=== PATIENT | female | born 1950 | race Caucasian/White ===

== ENCOUNTER → 2020-03-23 15:47 | Outpatient (CLI) | payer MEDICARE, SELFPAY ==
[2020-03-23 16:34] LABS: Basophils # 0.1 K/mm3 (0-0.2); Basophils % 0.5 % (0.1-2.0); Eosinophils # 0.1 K/mm3 (0.0-0.4); Eosinophils % 0.6 % (0.1-12.0); Hematocrit 44.4 % (37.0-47.0); Hemoglobin 14.8 g/dL (12.2-16.2); Lymphocytes # 2.6 K/mm3 (0.7-4.5); Lymphocytes % 21.8 % (10-50); Mean Corpuscular HGB Conc 33.2 g/dL (31.8-35.4); Mean Corpuscular Hemoglobin 30.8 pg (27.0-31.2); Mean Corpuscular Volume 92.9 fl (81-99); Mean Platelet Volume 8.7 fl (7.4-10.4); Monocytes # 0.7 K/mm3 (0.1-1.0); Monocytes % 5.8 % (1.7-9.3); Neutrophils # 8.5 K/mm3 (1.8-7.8); Neutrophils % 71.3 % (37.0-80.0); Platelet Count 409 K/mm3 (142-424); Red Blood Count 4.78 M/mm3 (4.20-5.40); White Blood Count 11.9 K/mm3 (4.8-10.8)
[2020-03-23 18:15] LABS: Alanine Aminotransferase 34 U/L (12-78); Albumin Level 4.3 g/dl (3.5-5.0); Albumin/Globulin Ratio 1.6 (1.1-1.8); Alkaline Phosphatase 82 U/L (38-126); Anion Gap 17.7 mEq/L (5-15); Aspartate Amino Transferase 42 U/L (14-36); Bilirubin,Total 0.9 mg/dl (0.2-1.3); Blood Urea Nitrogen 16 mg/dl (7-17); Carbon Dioxide 25 mmol/L (22.0-30.0); Chloride 100 mmol/L (98-107); Chol/HDL Ratio 3.2 (1-3.5); Cholesterol 246 mg/dl (140-200); Estimated Glomerular Filt Rate 83 ml/min (>60); GFR (African American) 100 ML/MIN (>60); Globulin 2.7 g/dL (1.3-3.2); Glucose 132 mg/dl (74-100); HDL Cholesterol 78 mg/dl (40-60); Potassium 4.7 mmoL/L (3.5-5.1); Sodium 138 mmol/L (136-145); Triglycerides 234 mg/dl (30-150); VLDL Cholesterol 47 mg/dL (0-40)
[2020-03-23 18:26] LABS: Direct LDL Cholesterol 124.17 mg/dL (100-129)
[2020-03-23 20:12] LABS: Hemoglobin A1C 6.4 % (4.0-6.0)
== END ==
PROVIDERS: Visit Provider Family Medicine
DX: I10 Essential (primary) hypertension (principal); E11.9 Type 2 diabetes mellitus without complications; K57.33 Diverticulitis of large intestine without perforation or abscess with bleeding
CPT/HCPCS: 80053; 80061; 83036; 85025

== ENCOUNTER → 2020-11-12 14:19 | Outpatient (CLI) | payer MEDICARE, SELFPAY ==
[2020-11-12 14:29] LABS: Basophils # 0.1 K/mm3 (0-0.2); Basophils % 0.7 % (0.1-2.0); Eosinophils # 0.1 K/mm3 (0.0-0.4); Eosinophils % 0.7 % (0.1-12.0); Hematocrit 43.8 % (37.0-47.0); Hemoglobin 14.4 g/dL (12.2-16.2); Lymphocytes # 3.3 K/mm3 (0.7-4.5); Lymphocytes % 35.5 % (10-50); Mean Corpuscular HGB Conc 32.9 g/dL (31.8-35.4); Mean Corpuscular Hemoglobin 30.4 pg (27.0-31.2); Mean Corpuscular Volume 92.4 fl (81-99); Mean Platelet Volume 8.5 fl (7.4-10.4); Monocytes # 0.5 K/mm3 (0.1-1.0); Monocytes % 5.4 % (1.7-9.3); Neutrophils # 5.4 K/mm3 (1.8-7.8); Neutrophils % 57.7 % (37.0-80.0); Platelet Count 355 K/mm3 (142-424); Red Blood Count 4.74 M/mm3 (4.20-5.40); Red Cell Distribution Width 14.6 % (11.5-17.5); White Blood Count 9.3 K/mm3 (4.8-10.8)
[2020-11-12 14:33] LABS: Alanine Aminotransferase 23 U/L (12-78); Albumin Level 4.8 g/dl (3.5-5.0); Albumin/Globulin Ratio 1.7 (1.1-1.8); Alkaline Phosphatase 101 U/L (38-126); Anion Gap 14.9 mEq/L (5-15); Aspartate Amino Transferase 30 U/L (14-36); Bilirubin,Total 1.5 mg/dl (0.2-1.3); Blood Urea Nitrogen 21 mg/dl (7-17); Calcium 10.4 mg/dl (8.4-10.2); Carbon Dioxide 27 mmol/L (22.0-30.0); Chloride 102 mmol/L (98-107); Estimated Glomerular Filt Rate 71 ml/min (>60); GFR (African American) 86 ML/MIN (>60); Globulin 2.9 g/dL (1.3-3.2); Glucose 115 mg/dl (74-100); HDL Cholesterol 75 mg/dl (40-60); Potassium 3.9 mmoL/L (3.5-5.1); Sodium 140 mmol/L (136-145); Total Protein,Serum 7.7 g/dl (6.3-8.2)
[2020-11-12 14:34] LABS: Cholesterol 299 mg/dl (140-200); Triglycerides 238 mg/dl (30-150); VLDL Cholesterol 48 mg/dL (0-40)
[2020-11-12 14:43] LABS: Direct LDL Cholesterol 175.68 mg/dL (100-129)
[2020-11-12 14:51] LABS: T4 (Thyroxine) 13.6 ug/dl (5.53-11.0)
[2020-11-12 15:05] LABS: Thyroid Stimulating Hormone 1.19 uIU/mL (0.465-4.68)
[2020-11-12 15:35] LABS: Hemoglobin A1C 6.2 % (4.0-6.0)
== END ==
PROVIDERS: Visit Provider Family Medicine
DX: I10 Essential (primary) hypertension (principal); M25.512 Pain in left shoulder; E11.9 Type 2 diabetes mellitus without complications; Z79.899 Other long term (current) drug therapy
CPT/HCPCS: 80053; 80061; 83036; 84436; 84443; 85025

== ENCOUNTER → 2020-12-30 07:38 | Outpatient (CLI) | payer MEDICARE, SELFPAY ==
--- NOTE | 2020-12-30 07:41 | CA_ITS ---
APPROVED REPORT Band Splicer: FLY Laterality: Bilateral Study Quality: Good Indications: bruit Risk Factors Hypertension: Doppler Spectral Velocity Analysis ECA (R) 83.50/13.50 cm/s ECA (L) 106.20/20.60 cm/s dICA (R) 83.50/32.70 cm/s dICA (L) 117.40/45.40 cm/s Sherie (R) 74.50/28.90 cm/s Sherie (L) 114.00/42.80 cm/s pICA (R) 93.70/23.10 cm/s pICA (L) 54.00/19.70 cm/s dCCA (R) 79.00/23.10 cm/s dCCA (L) 90.00/26.60 cm/s pCCA (R) 94.40/21.80 cm/s mCCA (L) 110.50/25.70 cm/s Vert (R) 34.00/14.10 cm/s Vert (L) 33.20/10.50 cm/s ICA/CCA 1.00 ICA/CCA 1.30 Findings Duplex evaluation demonstrates stenosis of the right proximal internal carotid artery in the range of 20-49% with PSV <140 cm/sec, EDV <100 cm/sec, and IC/CC Ratio <4.0. Duplex evaluation demonstrates stenosis of the left proximal internal carotid artery in the range of 20-49% with PSV <140 cm/sec, EDV <100 cm/sec, and IC/CC Ratio <4.0. Duplex evaluation demonstrates antegrade flow of the bilateral Vertebral Arteries. Left Internal carotid artery tortuosity noted. Conclusion Duplex evaluation demonstrates stenosis of the right proximal internal carotid artery in the range of 20-49% with PSV <140 cm/sec, EDV <100 cm/sec, and IC/CC Ratio <4.0. Duplex evaluation demonstrates stenosis of the left proximal internal carotid artery in the range of 20-49% with PSV <140 cm/sec, EDV <100 cm/sec, and IC/CC Ratio <4.0. Duplex evaluation demonstrates antegrade flow of the bilateral Vertebral Arteries. Electronically signed by : Casey Conway MD 12/30/2020 17:33:53
== END ==
PROVIDERS: PCP Family Medicine; Visit Provider Family Medicine
DX: R09.89 Other specified symptoms and signs involving the circulatory and respiratory systems (principal)
CPT/HCPCS: 93880

== ENCOUNTER → 2021-05-28 14:00 | Outpatient (CLI) | payer MEDICARE, SELFPAY ==
[2021-05-28 14:16] LABS: Alanine Aminotransferase 21 U/L (12-78); Albumin Level 4.6 g/dl (3.5-5.0); Albumin/Globulin Ratio 1.7 (1.1-1.8); Alkaline Phosphatase 117 U/L (38-126); Anion Gap 13.8 mEq/L (5-15); Aspartate Amino Transferase 28 U/L (14-36); Bilirubin,Total 1.2 mg/dl (0.2-1.3); Blood Urea Nitrogen 18 mg/dl (7-17); Calcium 10.3 mg/dl (8.4-10.2); Carbon Dioxide 29 mmol/L (22.0-30.0); Chloride 103 mmol/L (98-107); Chol/HDL Ratio 3.5 (1-3.5); Cholesterol 283 mg/dl (140-200); Estimated Glomerular Filt Rate 82 ml/min (>60); GFR (African American) 100 ML/MIN (>60); Globulin 2.7 g/dL (1.3-3.2); Glucose 106 mg/dl (74-100); HDL Cholesterol 81 mg/dl (40-60); Potassium 4.8 mmoL/L (3.5-5.1); Sodium 141 mmol/L (136-145); Total Protein,Serum 7.3 g/dl (6.3-8.2); Triglycerides 163 mg/dl (30-150); VLDL Cholesterol 33 mg/dL (0-40)
[2021-05-28 14:17] LABS: Basophils # 0.1 K/mm3 (0-0.2); Basophils % 0.6 % (0.1-2.0); Eosinophils # 0.1 K/mm3 (0.0-0.4); Eosinophils % 0.9 % (0.1-12.0); Hematocrit 43.7 % (37.0-47.0); Hemoglobin 14.3 g/dL (12.2-16.2); Lymphocytes # 2.8 K/mm3 (0.7-4.5); Mean Corpuscular HGB Conc 32.7 g/dL (31.8-35.4); Mean Corpuscular Hemoglobin 32.2 pg (27.0-31.2); Mean Corpuscular Volume 98.3 fl (81-99); Mean Platelet Volume 8.1 fl (7.4-10.4); Monocytes # 0.4 K/mm3 (0.1-1.0); Monocytes % 5.7 % (1.7-9.3); Neutrophils # 4.5 K/mm3 (1.8-7.8); Neutrophils % 57.8 % (37.0-80.0); Platelet Count 392 K/mm3 (142-424); Red Blood Count 4.45 M/mm3 (4.20-5.40); Red Cell Distribution Width 13.5 % (11.5-17.5); White Blood Count 7.9 K/mm3 (4.8-10.8)
[2021-05-28 14:26] LABS: Direct LDL Cholesterol 171.43 mg/dL (100-129)
[2021-05-28 15:21] LABS: Hemoglobin A1C 6.1 % (4.0-6.0)
== END ==
PROVIDERS: Visit Provider Family Medicine
DX: E11.9 Type 2 diabetes mellitus without complications (principal); Z79.899 Other long term (current) drug therapy
CPT/HCPCS: 80053; 80061; 83036; 85025

== ENCOUNTER → 2021-07-19 17:44 | Outpatient (CLI) | payer MEDICARE, SELFPAY ==
[2021-07-19 17:52] LABS: Adenovirus,PCR Not Detected (NotDetected); Bordetella Pertussis Not Detected (NotDetected); Chlamydophila Pneumoniae, PCR Not Detected (NotDetected); Coronavirus 19, PCR Not Detected (NotDetected); Coronavirus 229E Not Detected (NotDetected); Coronavirus NL63 Not Detected (NotDetected); Coronavirus OC43 Not Detected (NotDetected); Coronovirus HKU1,PCR Not Detected (NotDetected); Human Metapneumovirus Not Detected (NotDetected); Influenza A, PCR Not Detected (NotDetected); Influenza AH1, 2009 Not Detected (NotDetected); Influenza AH1, PCR Not Detected (NotDetected); Influenza AH3,PCR Not Detected (NotDetected); Influenza B, PCR Not Detected (NotDetected); Mycoplasma Pneumoniae, PCR Not Detected (NotDetected); Parainfluenza 1, PCR Not Detected (NotDetected); Parainfluenza 2, PCR Not Detected (NotDetected); Parainfluenza 3, PCR Not Detected (NotDetected); Parainfluenza 4, PCR Not Detected (NotDetected); Respiratory Syncytial Virus Not Detected (NotDetected); Rhinovirus/Enterovirus Not Detected (NotDetected)
== END ==
PROVIDERS: Visit Provider Family Medicine
DX: Z20.822 Contact with and (suspected) exposure to COVID-19 (principal)
CPT/HCPCS: 87581; 87632; 87798; C9803; U0003; U0005

== ENCOUNTER → 2022-04-04 07:10 | Outpatient (CLI) | payer MEDICARE, SELFPAY ==
[2022-04-04 17:35] LABS: Alanine Aminotransferase 32 U/L (12-78); Albumin Level 4.4 g/dl (3.5-5.0); Albumin/Globulin Ratio 1.6 (1.1-1.8); Alkaline Phosphatase 132 U/L (38-126); Aspartate Amino Transferase 36 U/L (14-36); Bilirubin,Total 1.3 mg/dl (0.2-1.3); Blood Urea Nitrogen 28 mg/dl (7-17); Calcium 10.2 mg/dl (8.4-10.2); Carbon Dioxide 26 mmol/L (22.0-30.0); Chloride 104 mmol/L (98-107); Chol/HDL Ratio 4.5 (1-3.5); Cholesterol 270 mg/dl (140-200); Estimated Glomerular Filt Rate 62 ml/min (>60); GFR (African American) 74 ML/MIN (>60); Globulin 2.8 g/dL (1.3-3.2); Glucose 121 mg/dl (74-100); HDL Cholesterol 60 mg/dl (40-60); Sodium 140 mmol/L (136-145); Total Protein,Serum 7.2 g/dl (6.3-8.2); Triglycerides 276 mg/dl (30-150); Uric Acid 5.4 mg/dl (2.5-6.2); VLDL Cholesterol 55 mg/dL (0-40)
[2022-04-06 08:30] LABS: Direct LDL Cholesterol 165 mg/dL (100-129)
== END ==
PROVIDERS: PCP Family Medicine; Visit Provider Family Medicine
DX: E11.9 Type 2 diabetes mellitus without complications (principal)
CPT/HCPCS: 80053; 80061; 83036; 84550

== ENCOUNTER → 2022-12-05 09:23 | Outpatient (CLI) | payer MEDICARE, SELFPAY | PROVIDERS: PCP Family Medicine; Visit Provider Family Medicine | DX: E11.9 Type 2 diabetes mellitus without complications (principal) ==

== ENCOUNTER → 2022-12-05 13:53 | Outpatient (CLI) | payer MEDICARE, SELFPAY ==
[2022-12-05 15:59] LABS: Alanine Aminotransferase 22 U/L (12-78); Albumin Level 4.5 g/dl (3.5-5.0); Alkaline Phosphatase 99 U/L (38-126); Anion Gap 8.7 mEq/L (5-15); Aspartate Amino Transferase 26 U/L (14-36); Bilirubin,Total 1.5 mg/dl (0.2-1.3); Blood Urea Nitrogen 23 mg/dl (7-17); Calcium 9.5 mg/dl (8.4-10.2); Carbon Dioxide 29 mmol/L (22.0-30.0); Chloride 103 mmol/L (98-107); Chol/HDL Ratio 4.1 (1-3.5); Cholesterol 265 mg/dl (140-200); Estimated Glomerular Filt Rate 61 ml/min (>60); GFR (African American) 74 ML/MIN (>60); Globulin 2.3 g/dL (1.3-3.2); Glucose 117 mg/dl (74-100); HDL Cholesterol 65 mg/dl (40-60); Potassium 4.7 mmoL/L (3.5-5.1); Sodium 136 mmol/L (136-145); Total Protein,Serum 6.8 g/dl (6.3-8.2); Triglycerides 223 mg/dl (30-150); VLDL Cholesterol 45 mg/dL (0-40)
[2022-12-05 16:10] LABS: Direct LDL Cholesterol 158.57 mg/dL (100-129)
[2022-12-05 16:24] LABS: Hemoglobin A1C 8.7 % (4.0-6.0)
== END ==
PROVIDERS: PCP Family Medicine; Visit Provider Family Medicine
DX: E11.9 Type 2 diabetes mellitus without complications (principal); I10 Essential (primary) hypertension
CPT/HCPCS: 80053; 80061; 83036

== ENCOUNTER → 2023-04-06 23:20 | Outpatient (CLI) | payer MEDICARE, SELFPAY ==
[2023-04-06 18:57] LABS: Basophils % 0.4 % (0.1-2.0); Eosinophils # 0.1 K/mm3 (0.0-0.4); Eosinophils % 0.8 % (0.1-12.0); Hematocrit 39.3 % (37.0-47.0); Hemoglobin 12.8 g/dL (12.2-16.2); Lymphocytes # 3.3 K/mm3 (0.7-4.5); Lymphocytes % 37.7 % (10-50); Mean Corpuscular HGB Conc 32.6 g/dL (31.8-35.4); Mean Corpuscular Hemoglobin 31.2 pg (27.0-31.2); Mean Corpuscular Volume 95.5 fl (81-99); Mean Platelet Volume 9.5 fl (7.4-10.4); Monocytes # 0.5 K/mm3 (0.1-1.0); Monocytes % 5.2 % (1.7-9.3); Neutrophils # 4.9 K/mm3 (1.8-7.8); Neutrophils % 55.9 % (37.0-80.0); Platelet Count 397 K/mm3 (142-424); Red Blood Count 4.11 M/mm3 (4.20-5.40); Red Cell Distribution Width 14.4 % (11.5-17.5); White Blood Count 8.8 K/mm3 (4.8-10.8)
[2023-04-06 19:05] LABS: Alanine Aminotransferase 20 U/L (12-78); Albumin Level 4.4 g/dl (3.5-5.0); Albumin/Globulin Ratio 1.6 (1.1-1.8); Alkaline Phosphatase 93 U/L (38-126); Anion Gap 13.9 mEq/L (5-15); Aspartate Amino Transferase 30 U/L (14-36); Bilirubin,Total 0.9 mg/dl (0.2-1.3); Blood Urea Nitrogen 24 mg/dl (7-17); Calcium 9.9 mg/dl (8.4-10.2); Carbon Dioxide 30 mmol/L (22.0-30.0); Chloride 102 mmol/L (98-107); Chol/HDL Ratio 4.5 (1-3.5); Cholesterol 268 mg/dl (140-200); Estimated Glomerular Filt Rate 54 ml/min (>60); GFR (African American) 66 ML/MIN (>60); Globulin 2.7 g/dL (1.3-3.2); Glucose 106 mg/dl (74-100); HDL Cholesterol 59 mg/dl (40-60); Potassium 4.9 mmoL/L (3.5-5.1); Sodium 141 mmol/L (136-145); Total Protein,Serum 7.1 g/dl (6.3-8.2); Triglycerides 167 mg/dl (30-150); VLDL Cholesterol 33 mg/dL (0-40)
[2023-04-06 20:35] LABS: Hemoglobin A1C 5.8 % (4.0-6.0)
== END ==
PROVIDERS: PCP Family Medicine; Visit Provider Family Medicine
DX: E11.9 Type 2 diabetes mellitus without complications (principal); Z79.84 Long term (current) use of oral hypoglycemic drugs
CPT/HCPCS: 80053; 80061; 83036; 85025

== ENCOUNTER 2024-02-07 12:54 | Outpatient (CLI) | payer MEDICARE, SELFPAY ==
[2024-02-07 19:32] LABS: Alanine Aminotransferase 23 U/L (12-78); Albumin Level 4.4 g/dl (3.5-5.0); Albumin/Globulin Ratio 1.7 (1.1-1.8); Alkaline Phosphatase 92 U/L (38-126); Anion Gap 15.7 mEq/L (5-15); Aspartate Amino Transferase 28 U/L (14-36); Bilirubin,Total 0.8 mg/dl (0.2-1.3); Blood Urea Nitrogen 19 mg/dl (7-17); Calcium 10.1 mg/dl (8.4-10.2); Carbon Dioxide 31 mmol/L (22.0-30.0); Chloride 100 mmol/L (98-107); Estimated Glomerular Filt Rate 70 ml/min (>60); GFR (African American) 85 ML/MIN (>60); Globulin 2.6 g/dL (1.3-3.2); Glucose 112 mg/dl (74-100); Potassium 4.7 mmoL/L (3.5-5.1); Sodium 142 mmol/L (136-145)
== END 2024-02-07 23:59 | disposition home or self-care (01) ==
LOC: LAB.DROPOF 02-08 12:55
PROVIDERS: PCP Family Medicine; Visit Provider Family Medicine
DX: E11.9 Type 2 diabetes mellitus without complications (principal); Z79.84 Long term (current) use of oral hypoglycemic drugs
CPT/HCPCS: 80053

== ENCOUNTER 2025-06-09 11:13 | Outpatient (CLI) | payer MEDICARE, SELFPAY ==
--- OUTSIDE RECORDS SUMMARY | 2025-04-21 09:00 | XMS_ITS | Encounter Summary ---
Author Organization [facility] Address [address] [place] [address] Care Team Providers Care Tire Tester Name Role Phone Brandon Lindsay MD Primary Care Provider [phone] Jenn Mancilla DO Unavailable Emily Le APRN Unavailable [phone] Mirlande Murphy MD Unavailable Reason for Visit * Reason Comments Gout Encounter Details Date Type Department Care Team (Latest Contact Info) Description 04/21/2025 9:00 AM EDT Office Visit [facility] [address] [place] [address] Mirlande Murphy MD [address] [place] [address] Chronic gout without tophus, unspecified cause, unspecified site (Primary Dx); PA (psoriatic arthritis) (HCC); Psoriasis; Osteoarthrosis, generalized, involving multiple sites; 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; Encounter for long-term (current) use of medications; Type 2 diabetes mellitus with other specified complication, 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 chcf insulin use (HCC) Social History Tobacco Use Types Packs/Day Years Used Date Smoking Tobacco: Never Smokeless Tobacco: Never Alcohol Use Standard Drinks/Week Comments No 0 (1 standard drink = 0.6 oz pur e alcohol) Sexually Active Control Partners Comments Never Comments No Sex and Gender Information Value Date Recorded Sex Assigned at Not on file Legal Sex Female 3:00 PM EDT Gender Identity Not on file Sexual Orientation Not on file documented as of this encounter Last Filed Vital Signs Vital Sign Reading Time Taken Comments Blood Pressure 128/72 04/21/2025 9:05 AM EDT Pulse - - Temperature 36.4 C (97.6 F) 04/21/2025 9:05 AM EDT Respiratory Rate - - Oxygen Saturation - - Inhaled Oxygen Concentration - - Weight 72.1 kg (159 lb) 04/21/2025 9:05 AM EDT Height 154.9 cm (5' 1 ) 04/21/2025 9:05 AM EDT Body Mass Index 30.04 04/21/2025 9:05 AM EDT documented in this encounter Functional Status * Is the person deaf or does he/she have serious difficulty hearing? Answer Date of Assessment Author No 03/08/2019 10:22 AM Shanelle Samson RN * Is the person blind or does he/she have serious difficulty seeing even when wearing glasses? Answer Date of Assessment Author No 03/08/2019 10:22 AM Shanelle Samson RN * Does this person have serious difficulty walking or climbing stairs? Answer Date of Assessment Author No 03/08/2019 10:22 AM Shanelle Samson RN * Does this person have difficulty dressing or bathing? Answer Date of Assessment Author No 03/08/2019 10:22 AM Shanelle Samson RN * Because of a physical, mental or emotional condition, does this person have difficulty doing errands alone such as visiting a doctor's office or shopping? Answer Date of Assessment Author No 03/08/2019 10:22 AM Shanelle Samson RN documented as of this encounter Mental Status * Because of a physical, mental or emotional condition, does this person have serious difficulty concentrating, remembering or making decisions? Answer Entry Date Author No 03/08/2019 10:22 AM Shanelle Samson RN documented in this encounter Ordered Prescriptions Prescription Sig Dispense Quantity Refills Last Filled Start Date End Date allopurinoL (ZYLOPRIM) 300 mg Oral TabletIndications:C hronic gout without tophus, unspecified cause, unspecified site Take 1 Tablet by mouth daily. 120 Tablet 04/21/2025 documented in this encounter Progress Notes * Mirlande Murphy MD - 04/21/2025 9:00 AM EDT Images from the original note were not included. Subjective Subjective: Patient ID: Rere Noonan is a 74 y.o. female. Chief Complaint Patient presents with Gout HPI: Rere Noonan is a 74 y.o.female who presents for Follow up visit for psA, chronic gout and generalised osteoarthritis Atrial flutter on xarelto Previous medications: - methotrexate ( GI intolerence )[id number] - sulfasalazine ( GI intolerence )2018 Current medications: - allopurinol 300 mg daily ( dose lowered from 300 mg to 200 mg in 08/19, increased back to 300 mg daily in 03/20 ) Events since last visit: - IM depomedrol 120 mg- 12/24/24 - she has not had any further gout flares - xray left ankle: swelling improved - she takes tylenol 1000 mg BID PRN, she stays very active reviewed labs done on 12/24/24 - normal CBC, creat, LFTs - HbA1c 5.7, improved from 6 - uric acid 4.7 - C-RP 14.4 The pain / function / disease activity questionnaire was filled out by the patient and reviewed with me. Function on mHAQ = 0 Pain on 10-cm VAS = 0 PTGL= 0 Disease Activity on RAPID 3 = 0 REVIEW OF SYSTEMS See HPI for further details. Review of systems otherwise negative. Past Medical History: Diagnosis Date Chest pain NUC 07/2013-METS 5.6, EF 60% Diverticulitis Heartburn Hypercholesteremia Hypertension ECHO 09/2014- EF 70-75%, MV mod mitral annular calc, trace regurg, TV trace regurg, RVSP 39 Motion sickness Pleurisy Post-operative nausea and vomiting Rheumatoid arthritis (HCC) Type 2 diabetes mellitus without complications (HCC) 01/09/2023 Social History Tobacco Use Smoking status: Never Smokeless tobacco: Never Substance Use Topics Alcohol use: No Family History Problem Relation Age of Onset Hypertension Mother Heart Attack Mother Hypertension Father Heart Failure Father Hypertension Sister High Cholesterol Sister Ovarian Cancer Sister 60 - 69 Ovarain cancer Cancer Sister 64 Hypertension Sister Asthma Sister Hypertension Brother High Cholesterol Brother Heart Attack Brother 50 Heart Surgery Brother cabg Hypertension Brother High Cholesterol Brother Asthma Brother Anesth Problems Neg Hx Allergies Allergen Reactions [place]-D 12 Hour [Fexofenadine-Pseudoephedrine] Shortness Of Breath and Palpitations Augmentin [Amoxicillin-Pot Clavulanate] Hives Cephalexin Hives Metronidazole Other (See Comments) Did something to the nerves in my face Still has residual effects of last time medication was taken. [place] Palsy type of symptoms. Whole left side of body tingling. Outpatient Medications Marked as Taking for the 04/21/25 encounter (Office Visit) with Mirlande Murphy MD Medication Sig Dispense Refill acetaminophen (TYLENOL) 500 mg Oral Tablet Take 500 mg by mouth every 6 hours as needed for Pain (arthritis). allopurinoL (ZYLOPRIM) 300 mg Oral Tablet Take 1 Tablet by mouth daily. 120 Tablet 0 [DISCONTINUED] allopurinoL (ZYLOPRIM) 300 mg Oral Tablet Take 1 Tablet by mouth daily. 90 Tablet 0 Cholecalciferol, Vitamin D3, 50 mcg (2,000 unit) Oral Tablet Take 100 mcg by mouth. famotidine (PEPCID) 20 mg Oral Tablet Take 20 mg by mouth 2 times daily. hydrALAZINE (APRESOLINE) 50 mg Oral Tablet Take 1 Tablet by mouth 2 times daily. hydrochlorothiazide (HYDRODIURIL) 25 mg Oral Tablet Take 0.5 Tabs by mouth daily. LORazepam (ATIVAN) 0.5 mg Oral Tablet Take 0.5-1 mg by mouth every 6 hours as needed for Anxiety. metFORMIN (GLUCOPHAGE) 500 mg Oral Tablet 500 mg 2 times daily. metoprolol succinate ER (TOPROL-XL) 100 mg Oral Tablet Sustained Release 24 hr Take 100 mg by mouthdaily. rivaroxaban (XARELTO) 20 mg Oral Tablet TAKE 1 TABLET BY MOUTH DAILY. 90 Tablet 1 Saccharomyces boulardii (FLORASTOR) 250 mg Oral Capsule Take 500 mg by mouth 2 times daily. Objective: Vital Signs: BP 128/72 (BP Location: Left arm, Patient Position: Sitting) Temp 97.6 ??F (36.4 ??C) (Forehead) Ht 5' 1 (1.549 m) Wt 159 lb (72.1 kg) BMI 30.04 kg/m?? Body mass index is 30.04 kg/m??. Physical Exam CONST: well developed, well nourished, no apparent distress EYES: pupils equal/ round/ sclera white, conjunctiva pink and moist ENT: oropharynx clear without exudates, mucus membranes moist NECK: supple without lymphadenopathy, no thyromegaly, no masses RESP: clear to auscultation bilaterally without wheezes/rhonchi/rales CV: regular rate and rhythm without murmurs/rubs/gallops, no edema/cyanosis/clubbing SKIN: no rash, no indurations, nodules, or tightening. MSK: no bony deformities/erythema/warmth/effusion of the hands/ wrists/ elbows/ shoulders/ hips/ knees/ ankles/ toes, full range of motion in the upper and lower extremities Assessment and Plan: Diagnoses and all orders for this visit: Chronic gout without tophus, unspecified cause, unspecified site Overview: - on allopurinol 300 mg daily - gout flare in 03/20, involved bilateral ankles and feet,dose of allopurinol was increased from 200mg to 300 mg daily - The diagnosis of gouty arthritis was discussed. I did discuss modifiable risk factors, mainly food and weight. The association was discussed of gout and food containing high uric acid, particularlymeat, shellfish, and alcohol. The importance of dietary modification and weight reduction was discussed. - Plan: continue allopurinol 300 mg daily, repeat labs today Orders: - CBC WITH AUTO DIFF-QUEST; Future - CREATININE-QUEST; Future - HEPATIC FUNCTION PANEL-QUEST; Future - URIC ACID-QUEST; Future - HEMOGLOBIN [id number]; Future - allopurinoL (ZYLOPRIM) 300 mg Oral Tablet; Take 1 Tablet by mouth daily. Dispense: 120 Tablet; Refill: 0 PA (psoriatic arthritis) (HCC) (Chronic) Overview: - side effects of GI intolerance to methotrexate and sulfasalazine - no active skin disease or enthesitis or inflammatory arthritis Orders: - SEDIMENTATION RATE AUTOMATED-QUEST; Future - C REACTIVE PROTEIN-QUEST; Future Psoriasis - no active lesions Osteoarthrosis, generalized, involving multiple sites Overview: - bilateral knees, bilateral hands - OA changes xray bilateral knees, hands, lumbar spine, hips - Plan: recommend tylenol upto 3 gram daily, diclofenac gel QID PRN on affected joints, physical therapy referral, will inject both knees at next visit/ if symptoms recur - The diagnosis of osteoarthritis was discussed, along with the prognosis. Treatment options were discussed. These include physical and exercise therapy with focus on quadriceps strengthening and weight reduction, both of which have been shown to help slow the progression of degeneration and reducepain. Symptom relief options with medications were reviewed, including NSAID and non-NSAID medication options. Injection options were reviewed, including the use of steroid injections, or visco-supplementation with medications like Supartz. - The risks of prednisone were reviewed by me with the patient, including (but not limited to) weight gain, osteoporosis acceleration, bone fractures, a- vascular necrosis, elevated blood sugars, and cataract acceleration. [facility] current use of systemic steroids Overview: - Discussed risks and benefits of steroids (prednisone, methylprednisolone). Risks including but not limited to cardiovascular effects (hypertension, edema), electrolyte disturbances, arrhythmias (bradycardia, atrial fibrillation), CHEMIST FOOD and psychiatric behavioral reactions (apathy, irritability, psychosis), Cushingnoid appearance (hernandez facies, buffalo hump), GI (weight gain, ulcers), hyperglycemia, avascular necrosis, adrenal insufficiency, osteoporosis and/or infections were discussed with the patient. - Patient understands that blood glucose (particularly if diabetic) and blood pressure should be monitored and if abnormal while on this therapy, should address immediately with primary care provider. - Patient understands that if on this therapy for prolonged period of time, it should not be abruptly stopped but rather tapered as per provider instructions. - Patient instructed to read educational material concerning medication. Injections: - IM depomedrol 120 mg - 10/05/22 - aspiration right knee 32 ml- 11/16/22 - left knee 80 mg depomedrol- 11/16/22 - IM depomedrol 120 mg - 03/13/24 - IM depomedrol 120 mg-08/14/24 - IM depomedrol 120 mg- 12/24/24 Encounter for long-term (current) use of medications Overview: - Allopurinol- side effects of hypersensitivity reactions, severe skin reactions like SJS, TEN, DRESS, exfoliative dermatitis, agranulocytosis, myelosuppression, aplastic anemia, thrombocytopenia, vasculitis, hepatotoxicity, renal impairment, seizures, peripheral neuropathy, diarrhea, nausea, urticaria, transaminitis, eosinophilia discussed Orders: - CBC WITH AUTO DIFF-QUEST; Future - CREATININE-QUEST; Future - HEPATIC FUNCTION PANEL-QUEST; Future - URIC ACID-QUEST; Future - HEMOGLOBIN [id number]; Future - SEDIMENTATION RATE AUTOMATED-QUEST; Future - C REACTIVE PROTEIN-QUEST; Future Type 2 diabetes mellitus with other specified complication, 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 chcf insulin use (HCC) (Chronic) - HEMOGLOBIN [id number]; Future - she takes metformin Instructions: - continue allopurinol 300 mg daily - RTC in 4 months This is a moderate complexity [id number] visit based on reviewing outside records, reviewing outside results, obtaining history and physical examination, and ordering unique testing required for the patient's evaluation and care. I reviewed symptoms, imaging findings, laboratory results, physical findings, and treatment to date. I have answered patient's questions, and patient statedsatisfaction regarding the treatment plan and recommendations. Total time 32 minutes with over 50% spent in counseling and/or coordinating care. Return in about 4 months (around 08/21/2025) for gout. documented in this encounter Miscellaneous Notes * Patient Instructions - Mirlande Murphy MD - 04/21/2025 9:00 AM EDT - continue allopurinol 300 mg daily - RTC in 4 months documented in this encounter Plan of Treatment Upcoming Encounters Date Type Department Care Team (Late st Contact Info) Description 06/17/2025 10:00 AM EDT Office Visit [facility] [address] [place] [address] Mirlande Murphy MD [address] [place] [address] 08/25/2025 10:00 AM EST Office Visit [facility] [address] [place] [address] Mirlande Murphy MD [address] [place] [address] documented as of this encounter Procedures Procedure Name Priority Date/Time Associated Diagnosis Comments URIC ACID-QUEST Routine 04/21/2025 9:28 AM EDT Chronic gout without tophus, unspecified cause, unspecified site Encounter for long-term (current) use of medications SEDIMENTATION RATE AUTOMATED-QUEST Routine 04/21/2025 9:28 AM EDT PA (psoriatic arthritis) (HCC) Encounter for long-term (current) use of medications HEPATIC FUNCTION PANEL-QUEST Routine 04/21/2025 9:28 AM EDT Chronic gout without tophus, unspecified cause, unspecified site Encounter for long-term (current) use of medications HEMOGLOBIN [id number] Routine 04/21/2025 9:28 AM EDT Chronic gout without tophus, unspecified cause, unspecified site Encounter for long-term (current) use of medications Type 2 diabetes mellitus with other specified complication, 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 manager long term care insulin use (HCC) CREATININE-QUEST Routine 04/21/2025 9:28 AM EDT Chronic gout without tophus, unspecified cause, unspecified site Encounter for long-term (current) use of medications C REACTIVE PROTEIN-QUEST Routine 04/21/2025 9:28 AM EDT PA (psoriatic arthritis) (HCC) Encounter for long-term (current) use of medications CBC WITH AUTO DIFF-QUEST Routine 04/21/2025 9:28 AM EDT Chronic gout without tophus, unspecified cause, unspecified site Encounter for long-term (current) use of medications documented in this encounter Results * C REACTIVE PROTEIN-QUEST (04/21/2025 9:28 AM EDT) CRP <3.0 <8.0 mg/L [facility] 04/21/2025 9:28 AM EDT 04/21/2025 9:29 AM EDT Mirlande Murphy MD [facility]CHEMISTRY ORDERABLES Final Result [facility] [address] [place] [address] * SEDIMENTATION RATE AUTOMATED-QUEST (04/21/2025 9:28 AM EDT) Sed Rate 9 < OR = 30 mm/h [facility] 04/21/2025 9:28 AM EDT 04/21/2025 9:29 AM EDT Mirlande Murphy MD [facility]-HEMATOLOGY ORDERABLES Rae l Result Performing Organization Address [facility] Co de Phone Number [facility] [address] [place] [address] * (ABNORMAL) HEMOGLOBIN [id number] (04/21/2025 9:28 AM EDT) Hemoglobin A1C 6.0(H) <5.7 % [facility] Comment: For someone without known diabetes, a hemoglobin A1c value between 5.7% and 6.4% is consistent with prediabetes and should be confirmed with a follow-up test. For someone with known diabetes, a value <7% indicates that their diabetes is well controlled. A1c targets should be individualized based on duration of diabetes, age, comorbid conditions, and other considerations. This assay result is consistent with an increased risk of diabetes. Currently, no consensus exists regarding use of hemoglobin A1c for diagnosis of diabetes for children. 04/21/2025 9:28 AM EDT 04/21/2025 9:29 AM EDT Mirlande Murphy MD [facility]-CHEMISTRY ORDERABLES Final Result Performing Organization Address [facility] de Phone Number [facility] [address] [place] [address] * URIC ACID-QUEST (04/21/2025 9:28 AM EDT) Uric Acid 5.0 2.5 - 7.0 mg/dL [facility] Comment: Therapeutic target for gout patients: <6.0 mg/dL 04/21/2025 9:28 AM EDT 04/21/2025 9:29 AM EDT Mirlande Murphy MD [facility]-CHEMISTRY ORDERABLES Final Result Performing Organization Address City/[facility]/ZIP Co de Phone Number [facility] [address] [place] [address] * HEPATIC FUNCTION PANEL-QUEST (04/21/2025 9:28 AM EDT) Protein, Total 6.6 6.1 - 8.1 g/dL [facility] Albumin 4.5 3.6 - 5.1 g/dL [facility] Globulin 2.1 1.9 - 3.7 g/dL (calc) [facility] Albumin/Globuli n Ratio 2.1 1.0 - 2.5 (calc) [facility] Total Bilirubin 1.2 0.2 - 1.2 mg/dL [facility] Bilirubin, Direct (Micro) 0.2 < OR = 0.2 mg/dL [facility] Bilirubin, Indirect (Micro) 1.0 0.2 - 1.2 mg/dL (calc) [facility] Alk Phos 71 37 - 153 U/L [facility] AST 13 10 - 35 U/L [facility] ALT 9 6 - 29 U/L [facility] 04/21/2025 9:28 AM EDT 04/21/2025 9:29 AM EDT Mirlande Murphy MD [facility]-CHEMISTRY ORDERABLES Final Result [facility] [address] [place] [address] * CREATININE-QUEST (04/21/2025 9:28 AM EDT) Creatinine 0.79 0.60 - 1.00 mg/dL [facility] EGFR 78 > OR = 60 mL/min/1.73 m2 [facility] 04/21/2025 9:28 AM EDT 04/21/2025 9:29 AM EDT us Mirlande Murphy MD [facility]-CHEMISTRY ORDERABLES Final Result [facility] [address] [address] * CBC WITH AUTO DIFF-QUEST (04/21/2025 9:28 AM EDT) WBC 8.1 3.8 - 10.8 Thousand/u L [facility] RBC 3.96 3.80 - 5.10 Million/uL [facility] Hemoglobin 12.4 11.7 - 15.5 g/dL [facility] Hematocrit 38.4 35.0 - 45.0 % [facility] MCV 97.0 80.0 - 100.0 fL [facility] MCH 31.3 27.0 - 33.0 pg [facility] MCHC 32.3 32.0 - 36.0 g/dL [facility] Comment: For adults, a slight decrease in the calculated MCHC value (in the range of 30 to 32 g/dL) is most likely not clinically significant; however, it should be interpreted with caution in correlation with other red cell parameters and the patient's clinical condition. RDW 12.8 11.0 - 15.0 % [facility] Platelets 311 140 - 400 Thousand/u L [facility] MPV 10.1 7.5 - 12.5 fL [facility] Neut# 4,423 1,500 - 7,800 cells/uL [facility] Lymph# [id number] 850 - 3,900 cells/uL [facility] Monocytes(Absolu te) 575 200 - 950 cells/uL [facility] Eos 73 15 - 500 cells/uL [facility] Baso# 49 0 - 200 cells/uL [facility] Neut Percent 54.6 % [facility] Lymph Percent 36.8 % [facility] Monocytes 7.1 % [facility] Eos Percent 0.9 % [facility] Baso Percent 0.6 % [facility] 04/21/2025 9:28 AM EDT 04/21/2025 9:29 AM EDT us Mirlande Murphy MD [facility]-HEMATOLOGY ORDERABLES Rae l Result [facility] [address] [place] [address] documented in this encounter Visit Diagnoses Diagnosis Chronic gout without tophus, unspecified cause, unspecified site- Primary PA (psoriatic arthritis) (HCC) Psoriatic arthropathy Psoriasis Other psoriasis Osteoarthrosis, generalized, involving multiple sites Generalized osteoarthrosis, involving multiple sites penitentiary current use of systemic steroids Encounter for long-term (current) use of steroids Encounter for long-term (current) use of medications Encounter for long-term (current) use of other medications Type 2 diabetes mellitus with other specified complication, 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 manager long term care insulin use (HCC) documented in this encounter Discontinued Medications Medication Sig Discontinue Reason Start Date End Da te allopurinoL (ZYLOPRIM) 300 mg Oral TabletIndications:Chron ic gout without tophus, unspecified cause, unspecified site Take 1 Tablet by mouth daily. Reorder 12/24/2024 04/21/2025 clobetasoL (TEMOVATE) 0.05 % Top Cream Apply topically daily as needed. Cancelled by 09/26/2024 04/21/2025 XDEMVY 0.25 % Opht Drops instill 1 drop into both eyes twice daily Cancelled by 12/16/2024 04/21/2025 documented as of this encounter Additional Health Concerns Assessment Noted Time A fall risk assessment has been complete d for the patient 12/04/2020 10:55 AM EDT documented as of this encounter Care Teams Tire Tester Relationship Specialty Start Date End Date Brandon Lindsay MD PCP - General 03/14/11 Jenn Mancilla DO Physician Internal Medicine-Cardiovascular Disease 1/30/14 Emily Le APRN Nurse Practitioner Nurse Practitioner 10/23/14 Mirlande Murphy MD [address] [place] [address] Internal Medicine-Rheumatology 11/10/22 documented as of this encounter
--- OUTSIDE RECORDS SUMMARY | 2025-05-20 13:00 | XMS_ITS | Encounter Summary ---
Author Organization [facility] Address [address] [place] [address] Care Team Providers Care Counter Clerk Name Role Phone Brandon Lindsay MD Primary Care Provider Jenn Mancilla DO Unavailable Emily Le APRN Unavailable [phone] Mirlande Murphy MD Unavailable Reason for Visit * Reason Comments Gout Encounter Details Date Type Department Care Team (Latest Contact Info) Description 05/20/2025 1:00 PM EDT Office Visit [facility] [address] [place] [address] Mirlande Murphy MD [address] [place] [address] Pain and swelling of right knee (Primary Dx); Chronic gout without tophus, unspecified cause, unspecified site; Psoriasis; PA (psoriatic arthritis) (HCC); Osteoarthrosis, generalized, involving multiple sites; 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; Encounter for long-term (current) use of medications; Type 2 diabetes mellitus with other specified complication, 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 belt builder helper insulin use ([facility]) Social History Tobacco Use Types Packs/Day Years [...] Sign Reading Time Taken Comments Blood Pressure 142/76 05/20/2025 12:31 PM EDT Pulse - - Temperature 36.6 C (97.9 F) 05/20/2025 12:31 PM EDT Respiratory Rate - - Oxygen Saturation - - Inhaled Oxygen Concentration - - Weight 72.1 kg (159 lb) 05/20/2025 12:31 PM EDT Height 154.9 cm (5' 1 ) 05/20/2025 12:31 PM EDT Body Mass Index 30.04 05/20/2025 12:31 PM EDT documented in this encounter Functional Status [...] Filled Start Date End Date allopurinoL (ZYLOPRIM) 100 mg Oral TabletIndications: Chronic gout without tophus, unspecified cause, unspecified site combine with 300 mg daily ( total dose 400 mg daily ) 30 Tablet 2 05/20/2025 predniSONE (DELTASONE) 10 mg Oral TabletIndications: Pain and swelling of right knee Take 4 Tablets by mouth daily for 4 days, THEN 3 Tablets daily for 4 days, THEN 2 Tablets daily for 4 days, THEN 1 Tablet daily for 4 days. 30 Tablet 2 05/20/2025 documented in this encounter Progress Notes * Mirlande Murphy MD - 05/20/2025 1:00 PM EDT Images from the original note were not included. Subjective Subjective: Patient ID: Rere Noonan is a 74 y.o. female. Chief Complaint Patient presents with Gout HPI: Rere Noonan is a 74 y.o.female who presents for Follow up visit for psA, chronic gout and generalized osteoarthritis Atrial flutter on xarelto Previous medications: - methotrexate ( GI intolerence )4308-7564 - sulfasalazine ( GI intolerence )2018 Current medications: - allopurinol 300 mg daily ( dose lowered from 300 mg to 200 mg in 08/19, increased back to 300 mg daily in 03/20 ) Events since last visit: - continue allopurinol 300 mg daily - second flare this year: she developed right knee swelling and pain , started few days ago. First flare this year was in left knee and ankle The pain / function / disease activity questionnaire was filled out by the patient and reviewed with me. Function on mHAQ = 5.5 Pain on 10-cm VAS = 5 PTGL= 2.5 Disease Activity on RAPID 3 = 4 REVIEW OF SYSTEMS See HPI for further [...] effects of last time medication was taken. [place] Palsy type of symptoms. Whole left side of body tingling. Outpatient Medications Marked as Taking for the 05/20/25 encounter (Office Visit) with Mirlande Murphy MD Medication Sig Dispense Refill acetaminophen (TYLENOL) 500 mg Oral Tablet Take 500 mg by mouth every 6 hours as needed for Pain (arthritis). allopurinoL (ZYLOPRIM) 300 mg Oral Tablet Take 1 Tablet by mouth daily. 120 Tablet 0 Cholecalciferol, Vitamin D3, 50 mcg [...] 2 times daily. Objective: Vital Signs: BP 142/76 (BP Location: Left arm, Patient Position: Sitting) Temp 97.9 ??F (36.6 ??C) (Forehead) Ht 5' 1 (1.549 m) [...] rash, no indurations, nodules, or tightening. MSK: fullness right knee: supra-patellar and lateral condyle, tenderness +, unable to flex knee beyond 45 degrees Assessment and Plan: Diagnoses and all orders for this visit: Pain and swelling of right knee - predniSONE (DELTASONE) 10 mg Oral Tablet; Take 4 Tablets by mouth daily for 4 days, THEN 3 Tablets daily for 4 days, THEN 2 Tablets daily for 4 days, THEN 1 Tablet daily for 4 days. Dispense: 30 Tablet; Refill: 2 - CBC WITH AUTO DIFF-QUEST; Future - CREATININE-QUEST; Future - HEPATIC FUNCTION PANEL-QUEST; Future - URIC ACID-QUEST; Future - SEDIMENTATION RATE AUTOMATED-QUEST; Future - C REACTIVE PROTEIN-QUEST; Future - AK ARTHROCENTESIS ASPIR&/INJ MAJOR JT/BURSA W/O US - lidocaine 1% 10 mg/mL (1 %) injection 2 mL - Plan: aspirated 18 ml cloudy, yellow colored fluid, sent for synovial fluid analysis for cell count and crystals, likely gout flare Right Knee Injection Risks and benefits were discussed (including risk of infection, bleeding, and post-injection flare), and verbal consent was obtained. The right knee was prepped and sterilized. Then, under sterile technique using a 25-gauge needle, 2 cc of 1% lidocaine was injected for anesthesia. Then, using 22 G needle, 18 ml yellow colored, cloudy fluid was aspirated. The area was cleaned, a bandaged was placed, and post-injection instructions were given. There was no immediate complication. Chronic gout without tophus, unspecified cause, unspecified [...] modification and weight reduction was discussed. - currently marycarmen flare: right knee, this is her second flare this year - Plan: s/p right knee diagnostic and therapeutic aspiration, increase dose of allopurinol from 300mg to 400 mg daily, prednisone taper for current flare, check uric acid level today Orders: - allopurinoL (ZYLOPRIM) 100 mg Oral Tablet; combine with 300 mg daily ( total dose 400 mg daily ) Dispense: 30 Tablet; Refill: 2 - CELL COUNT AND DIFFERENTIAL, SYNOVIAL FLUID-QUEST; Future - CRYSTALS, SYNOVIAL FLUID-QUEST; Future Psoriasis PA (psoriatic arthritis) (HCC) (Chronic) Overview: - side effects of GI intolerance to methotrexate and sulfasalazine - no active skin disease or enthesitis or inflammatory arthritis Osteoarthrosis, generalized, involving multiple sites Overview: - [...] necrosis, elevated blood sugars, and cataract acceleration. 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 Risks including but not limited to cardiovascular effects (hypertension, edema), electrolyte disturbances, arrhythmias (bradycardia, atrial fibrillation), GAS BURNER OPERATOR and psychiatric behavioral reactions (apathy, irritability, psychosis), [...] mg-08/14/24 - IM depomedrol 120 mg- 12/24/24 - right knee aspiration: 18 ml fluid-05/20/25 Encounter for long-term (current) use of medications Overview: - Allopurinol- side effects of hypersensitivity reactions, severe skin reactions like SJS, TEN, DRESS, exfoliative dermatitis, agranulocytosis, myelosuppression, aplastic anemia, thrombocytopenia, vasculitis, hepatotoxicity, renal impairment, seizures, peripheral neuropathy, diarrhea, nausea, urticaria, transaminitis, eosinophilia discussed Type 2 diabetes mellitus with other specified complication, 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 belt builder helper insulin use (HCC) (Chronic) Instructions: - right knee aspiration: 18 ml fluid - blood work - Prednisone taper - Increase dose of allopurinol from 300 mg to 400 mg daily ( combine 300 mg and 100 mg pills ) - RTC in 4 weeks This is a moderate complexity wgzcqki-wtnrslzf-icwsro visit based on reviewing outside records, reviewing outside results, obtaining history and physical examination, and ordering unique testing required for the patient's evaluation and care. I reviewed symptoms, imaging findings, laboratory results, physical findings, and treatment to date. I have answered patient's questions, and patient statedsatisfaction regarding the treatment plan and recommendations. Total time 35 minutes with over 50% spent in counseling and/or coordinating care. Return in about 4 weeks (around 06/17/2025) for gout. * Santa Bañuelos MA - 05/20/2025 1:00 PM EDT Right knee joint injection. 2cc of 1% buffered lidocaine to numb Administered by Dr. Mirlande Murphy Pt tolerated well. * Viki Hawley MA - 05/20/2025 1:00 PM EDT Pt called she still has pain and swelling in knee. Dr Murphy gave verbal okay for Depo 120mg documented in this encounter Miscellaneous Notes * Patient Instructions - Mirlande Murphy MD - 05/20/2025 1:00 PM EDT - right knee aspiration: 18 ml fluid - blood work - Prednisone taper - Increase dose of allopurinol from 300 mg to 400 mg daily ( combine 300 mg and 100 mg pills ) - RTC in 4 weeks documented in this encounter Plan of Treatment Upcoming Encounters Date Type Department Care Team (Late st Contact Info) Description 06/17/2025 10:00 AM EDT Office Visit [facility] [address] [place] [address] Mirlande Murphy MD [address] [place] [address] 08/25/2025 10:00 AM EST Office Visit [facility] [address] [place] [address] Mirlande Murphy MD [address] [place] [address] Scheduled Orders Name Type Priority Associated Diagnoses Orde r Schedule AK ARTHROCENTESIS ASPIR&/INJ MAJOR JT/BURSA W/O US AK Charge Routine Pain and swelling of right knee Ordered: 05/20/2025 CELL COUNT AND DIFFERENTIAL, SYNOVIAL FLUID-QUEST Lab Routine Chronic gout without tophus, unspecified cause, unspecified site 1 Occurrences starting 05/20/2025 until 05/20/2026 CRYSTALS, SYNOVIAL FLUID-QUEST Lab Routine Chronic gout without tophus, unspecified cause, unspecified site 1 Occurrences starting 05/20/2025 until 05/20/2026 CULTURE, AEROBIC AND ANAEROBIC W/GRAM STAIN-QUEST Microbiology Routine Chronic gout without tophus, unspecified cause, unspecified site 1 Occurrences starting 05/20/2025 until 05/20/2026 documented as of this encounter Procedures Procedure Name Priority Date/Time Associated Diagnosis Comments CELL COUNT AND DIFFERENTIAL, SYNOVIAL FLUID-QUEST Routine 05/20/2025 2:27 PM EDT CULTURE, ANAEROBIC BACTERIA WITH GRAM STAIN-QUEST Routine 05/20/2025 2:27 PM EDT CULTURE, AEROBIC BACTERIA-QUEST Routine 05/20/2025 2:27 PM EDT CRYSTALS, SYNOVIAL FLUID-QUEST Routine 05/20/2025 2:27 PM EDT URIC ACID-QUEST Routine 05/20/2025 1:16 PM EDT Pain and swelling of right knee SEDIMENTATION RATE AUTOMATED-QUEST Routine 05/20/2025 1:16 PM EDT Pain and swelling of right knee HEPATIC FUNCTION PANEL-QUEST Routine 05/20/2025 1:16 PM EDT Pain and swelling of right knee CREATININE-QUEST Routine 05/20/2025 1:16 PM EDT Pain and swelling of right knee C REACTIVE PROTEIN-QUEST Routine 05/20/2025 1:16 PM EDT Pain and swelling of right knee CBC WITH AUTO DIFF-QUEST Routine 05/20/2025 1:16 PM EDT Pain and swelling of right knee documented in this encounter Results * CULTURE, AEROBIC BACTERIA-QUEST (05/20/2025 2:27 PM EDT) Aerobic Bacterial Culture SEE NOTE [facility] Comment: CULTURE, AEROBIC BACTERIA Micro Number: [id number] Test Status: Final Specimen Source: Fluid (not specified) Specimen Quality: Adequate Result: No Growth 05/20/2025 2:27 PM EDT 05/22/2025 1:10 PM EDT Mirlande Murphy MD [facility]-MICROBIOLOGY ORDERABLES Fi nal Result Performing Organization Address [facility] de Phone Number [facility] [address] [place] [address] * CULTURE, ANAEROBIC BACTERIA WITH GRAM STAIN-QUEST (05/20/2025 2:27 PM EDT) Bacteria Identified [facility] SEE NOTE [facility] Comment: CULTURE, ANAEROBIC BACTERIA W/GRAM STAIN Micro Number: [id number] Test Status: Final Specimen Source: Fluid (not specified) Specimen Quality: Adequate Gram Stain: No organisms seen Result: No anaerobes isolated. 05/20/2025 2:27 PM EDT 05/22/2025 1:10 PM EDT Mirlande Murphy MD [facility]-MICROBIOLOGY ORDERABLES Fi nal Result Performing Organization Address [facility] de Phone Number [facility] [address] [place] [address] * CRYSTALS, SYNOVIAL FLUID-QUEST (05/20/2025 2:27 PM EDT) Specimen Source NOT GIVEN [facility] Crystals, Synovial Fluid NONE SEEN /HPF [facility] Comment:None seen 05/20/2025 2:27 PM EDT 05/22/2025 1:10 PM EDT Mirlande Murphy MD [facility]-BODY FLUIDS AND STOOL Rae l Result Performing Organization Address [facility] de Phone Number [facility] [address] [place] [address] * (ABNORMAL) CELL COUNT AND DIFFERENTIAL, SYNOVIAL FLUID-QUEST (05/20/2025 2:27 PM EDT) Specimen Source NOT GIVEN [facility] Color YELLOW STRAW/YEL LOW [facility] Appearance TURBID(A) CLEAR/HAZ Y [facility] Total Nucleated Cell CT 775(H) <150 cells/uL [facility] Neutrophils, % 22 0 - 24 % [facility] Lypphocytes, % 75(H) 0 - 74 % [facility] Monocyte/Macroph age, % 1 0 - 69 % [facility] Eosinophils 0 0 - 2 % [facility] Basophils, % 0 0 % [facility] Synoviocytes, % 2 0 - 15 % [facility] Comment [facility] Comment: Visible clumping present, results of cell count may be compromised. 05/20/2025 2:27 PM EDT 05/22/2025 1:10 PM EDT Mirlande Murphy MD [facility]-BODY FLUIDS AND STOOL Rae l Result [facility] [address] [place] [address] * C REACTIVE PROTEIN-QUEST (05/20/2025 1:16 PM EDT) CRP 6.8 <8.0 mg/L [facility] 05/20/2025 1:16 PM EDT 05/20/2025 1:17 PM EDT Mirlande Murphy MD [facility]-CHEMISTRY ORDERABLES Final Result Performing Organization Address City/[facility]/ZIP Co de Phone Number [facility] [address] [place] [address] * SEDIMENTATION RATE AUTOMATED-QUEST (05/20/2025 1:16 PM EDT) Sed Rate 2 < OR = 30 mm/h [facility] 05/20/2025 1:16 PM EDT 05/20/2025 1:17 PM EDT Mirlande Murphy MD [facility]-HEMATOLOGY ORDERABLES Rae l Result [facility] [address] [place] [address] * URIC ACID-QUEST (05/20/2025 1:16 PM EDT) Uric Acid 3.5 2.5 - 7.0 mg/dL [facility] Comment: Therapeutic target for gout patients: <6.0 mg/dL 05/20/2025 1:16 PM EDT 05/20/2025 1:17 PM EDT Mirlande Murphy MD [facility]-CHEMISTRY ORDERABLES Final Result Performing Organization Address [facility]/ZIP Co de Phone Number [facility] [address] [place] [address] * HEPATIC FUNCTION PANEL-QUEST (05/20/2025 1:16 PM EDT) Protein, Total 6.4 6.1 - 8.1 g/dL [facility] Albumin 4.5 3.6 - 5.1 g/dL [facility] Globulin 1.9 1.9 - 3.7 g/dL (calc) [facility] Albumin/Globuli n Ratio 2.4 1.0 - 2.5 (calc) [facility] Total Bilirubin 0.7 0.2 - 1.2 mg/dL [facility] Bilirubin, Direct (Micro) 0.1 < OR = 0.2 mg/dL [facility] Bilirubin, Indirect (Micro) 0.6 0.2 - 1.2 mg/dL (calc) [facility] Alk Phos 74 37 - 153 U/L [facility] AST 15 10 - 35 U/L [facility] ALT 13 6 - 29 U/L [facility] 05/20/2025 1:16 PM EDT 05/20/2025 1:17 PM EDT Mirlande Murphy MD [facility]-CHEMISTRY ORDERABLES Final Result [facility] [address] [place] [address] * CREATININE-QUEST (05/20/2025 1:16 PM EDT) Creatinine 0.82 0.60 - 1.00 mg/dL [facility] EGFR 75 > OR = 60 mL/min/1.73 m2 [facility] 05/20/2025 1:16 PM EDT 05/20/2025 1:17 PM EDT Mirlande Murphy MD [facility]-CHEMISTRY ORDERABLES Final Result Performing Organization Address [facility] Co de Phone Number [facility] [address] [place] [address] * (ABNORMAL) CBC WITH AUTO DIFF-QUEST (05/20/2025 1:16 PM EDT) WBC 9.0 3.8 - 10.8 Thousand/u L [facility] RBC 3.93 3.80 - 5.10 Million/uL [facility] Hemoglobin 12.4 11.7 - 15.5 g/dL [facility] Hematocrit 39.6 35.0 - 45.0 % [facility] MCV 100.8(H) 80.0 - 100.0 fL [facility] MCH 31.6 27.0 - 33.0 pg [facility] MCHC 31.3(L) 32.0 - 36.0 g/dL [facility] Comment: For adults, a slight decrease in the calculated MCHC value (in the range of 30 to 32 g/dL) is most likely not clinically significant; however, it should be interpreted with caution in correlation with other red cell parameters and the patient's clinical condition. RDW 13.1 11.0 - 15.0 % [facility] Platelets 350 140 - 400 Thousand/u L [facility] MPV 10.5 7.5 - 12.5 fL [facility] Neut# 4,716 1,500 - 7,800 cells/uL [facility] Lymph# 3,492 850 - 3,900 cells/uL [facility] Monocytes(Absolu te) 648 200 - 950 cells/uL [facility] Eos 90 15 - 500 cells/uL [facility] Baso# 54 0 - 200 cells/uL [facility] Neut Percent 52.4 % [facility] Lymph Percent 38.8 % [facility] Monocytes 7.2 % [facility] Eos Percent 1.0 % [facility] Baso Percent 0.6 % [facility] 05/20/2025 1:16 PM EDT 05/20/2025 1:17 PM EDT Mirlande Murphy MD [facility]-HEMATOLOGY ORDERABLES Rae plascencia Result [facility] [address] [place] [address] documented in this encounter Visit Diagnoses Diagnosis Pain and swelling of right knee- Primary Chronic gout without tophus, unspecified cause, unspecified site Psoriasis Other psoriasis PA (psoriatic arthritis) (HCC) Psoriatic arthropathy Osteoarthrosis, generalized, involving multiple sites Generalized osteoarthrosis, involving multiple sites 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 Pain and swelling of right kneeIndications:Pain and swelling of right knee Given 05/20/2025 1:02 PM EDT 2 mL Othe r documented in this encounter Additional Health Concerns Assessment Noted Time A fall risk assessment has been complete d for the patient 12/04/2020 10:55 AM EDT documented as of this encounter Care Teams Counter Clerk Relationship Specialty Start Date End Date Brandon Lindsay MD PCP - General 03/14/11 Jenn Mancilla DO Physician Internal Medicine-Cardiovascular Disease 09/26/13 Emily Le APRN Nurse Practitioner Nurse Practitioner 10/23/14 Mirlande Murphy MD [address] [facility] [place] [facility] [place] [address] Internal Medicine-Rheumatology 11/10/22 documented as of this encounter
--- OUTSIDE RECORDS SUMMARY | 2025-05-21 11:45 | XMS_ITS | Encounter Summary ---
Author Organization [facility] Address [address] [place] [address] Care Team Providers Care Boiling House Oiler Name Role Phone Brandon Lindsay MD Primary Care Provider [phone] Jenn Mancilla DO Unavailable Emily Le APRN Unavailable [phone] Mirlande Murphy MD Unavailable Reason for Visit * Reason Comments Injections 120 mg depo medrol Encounter Details Date Type Department Care Team (Latest Contact Info) Description 05/21/2025 11:45 AM EDT Office Visit [facility] [address] [place] [address] Mahi Walker MA Osteoarthrosis, generalized, involving multiple sites (Primary Dx); Rheumatoid arthritis, involving unspecified site, 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 rheumatoid factor present (HCC) Social History Tobacco Use Types Packs/Day [...] on file documented as of this encounter Functional Status * Is the person deaf or does he/she have serious difficulty hearing? Answer Date of Assessment Author No 03/08/2019 10:22 AM EDT Shanelle Padilla RN * Is the person blind or does he/she have serious difficulty seeing even when wearing glasses? Answer Date of Assessment Author No 03/08/2019 10:22 AM RAMIREZT Shanelle Padilla RN * Does this person have serious difficulty walking or climbing stairs? Answer Date of Assessment Author No 03/08/2019 10:22 AM RAMIREZT Shanelle Padilla RN * Does this person have difficulty dressing or bathing? Answer Date of Assessment Author No 03/08/2019 10:22 AM EDT Shanelle Padilla RN * Because of a physical, mental or emotional condition, does this person have difficulty doing errands alone such as visiting a doctor's office or shopping? Answer Date of Assessment Author No 03/08/2019 10:22 AM RAMIREZT Shanelle Padilla RN documented as of this encounter Mental Status * Because of a physical, mental or emotional condition, does this person have serious difficulty concentrating, remembering or making decisions? Answer Entry Date Author No 03/08/2019 10:22 AM Shanelle Samson RN documented in this encounter Progress Notes * Mahi Walker MA - 05/21/2025 11:45 AM EDT Depo Medrol 120 mg Approved by: Dr. Murphy Approval date: Verbal permission given to Viki URIAS per Dr. Murphy. * Mahi Walker MA - 05/21/2025 11:45 AM EDT Depo Medrol injection 120mg IM in Right upper gluteus muscle. Pt tolerated well. Laura Solano MA is a new hire to our practice, pt expressed consent for her to do the injection. I personally observed the injection and correct safety protocol was followed. BRYON Florence/JORDAN, Clinical [place] Brushing Machine Operator documented in this encounter Plan of Treatment Upcoming Encounters Date Type Department Care Team (Late st Contact Info) Description 06/17/2025 10:00 AM EDT Office Visit [facility] [address] [place] [address] Mirlande Murphy MD [address] [place] [address] 08/25/2025 10:00 AM EST Office Visit [facility] [address] [place] [address] Mirlande Murphy MD [address] [facility] [place] [address] documented as of this encounter Visit Diagnoses Diagnosis Osteoarthrosis, generalized, involving multiple sites- Primary Generalized osteoarthrosis, involving multiple sites Rheumatoid arthritis, involving unspecified site, 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 rheumatoid factor present (HCC) documented in this encounter Administered Medications Inactive Administered Medications - up to 1 most recent administrations Medication Order MAR Action Action Date Dose Rate Site methylPREDNISolone acetate (DEPO-Medrol) injection 40 mg 40 mg, Intramuscular, ONCE, 1 dose, On Mon05/21/25 at 1200, Dx: 1. Osteoarthrosis, generalized, involving multiple sites 2. Rheumatoid arthritis, involving unspecified site, 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 rheumatoid factor present (HCC)Indications:Osteoar throsis, generalized, involving multiple sites,Rheumatoid arthritis, involving unspecified site, 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 rheumatoid factor present (HCC) Given 05/21/2025 11:55 AM EDT 40 mg Right upper gluteus methylPREDNISolone acetate (DEPO-Medrol) injection 80 mg 80 mg, Intramuscular, ONCE, 1 dose, On Mon05/21/25 at 1200, Dx: 1. Osteoarthrosis, generalized, involving multiple sites 2. Rheumatoid arthritis, involving unspecified site, 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 rheumatoid factor present (HCC)Indications:Osteoar throsis, generalized, involving multiple sites,Rheumatoid arthritis, involving unspecified site, 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 rheumatoid factor present (HCC) Given 05/21/2025 11:55 AM EDT 80 mg Right upper gluteus documented in this encounter Additional Health Concerns Assessment Noted Time A fall risk assessment has been complete d for the patient 12/04/2020 10:55 AM EDT documented as of this encounter Care Teams Boiling House Oiler Relationship Specialty Start Date End Date Brandon Lindsay MD PCP - General 03/14/11 Jenn Mancilla DO Physician Internal Medicine-Cardiovascular Disease 09/26/13 Emily Le APRN Nurse Practitioner Nurse Practitioner 10/23/14 Mirlande Murphy MD [address] [place] [address] Internal Medicine-Rheumatology 11/10/22 documented as of this encounter
--- OUTSIDE RECORDS SUMMARY | 2025-06-10 11:16 | XMS_ITS | Clinical Summary ---
Author Organization [facility] Address [address] [place] [address] [place] [address] Care Team Providers Care Insulation Applicator Name Role Phone Unavailable Primary Care Provider Unavailabl e Social History Tobacco Use Types Packs/Day Years Used Date Smoking Tobacco: Never Assessed Comments Unknown Sex and Gender Information Value Date Recorded Sex Assigned at Not on file Legal Sex Female 12:07 AM EDT Gender Identity Not on file Sexual Orientation Not on file Plan of Treatment Health Maintenance Due Date Last Done Comments Hepatitis C Screening 1949 DTap,Tdap,and Td (1 - Tdap) 1960 Colonoscopy 1994 Pneumococcal 50+ (1 of 1 - PCV) 1999 Shingrix (#1) 1999 DEXA Scan 2014 RSV Vaccine (60+ or ) (1 - 1-dose 75+ series) 2024 Influenza Vaccine (#1) 2025 HPV Aged Out No longer eligi ble based on patient's age to complete this topic Meningococcal conjugate enrique nt 4 (MCV4) Aged Out No longer eligible b ased on patient's age to complete this topic RSV Immunization (<20 months) Aged Out No longer eligible based on patient's age to complete this topic [place] [address] [address] [employer]THERS NOT MEDICARE [employer] ALL OTHERS NOT MEDICARE
--- OUTSIDE RECORDS SUMMARY | 2025-06-10 11:17 | XMS_ITS | Encounter Summary ---
Author Organization [facility] Address [address] [place] [address] Care Team Providers Care Fountain Pen Nibs Inspector Name Role Phone Brandon Lindsay MD Primary Care Provider [phone] Jenn Mancilla DO Unavailable Emily Le APRN Unavailable [phone] Mirlande Murphy MD Unavailable Encounter Details Date Type Department Care Team (Latest Contact Info) Description 05/26/2025 Results Follow-Up [facility] [address] [place] [address] Mirlande Murphy MD [address] [place] [address] CBC WITH AUTO DIFF-QUEST, CREATININE-QUEST, HEPATIC FUNCTION PANEL-QUEST, Additional followed-up results: 7 Social History Tobacco Use Types Packs/Day Years [...] Progress Notes * Mirlande Murphy MD - 05/26/2025 11:11 AM EDT reviewed labs done on 05/20/25 - synovial fluid: turbid, 775 nucleated cells, 75 lymphocytes, no crystals, no organisms were identified - normal CBC, LFTs, creat, C-RP - uric acid 3.5 spoke to patient, discussed results, she is feeling better. documented in this encounter Plan of Treatment Upcoming Encounters Date Type Department Care Team (Late st Contact Info) Description 06/17/2025 10:00 AM EDT Office Visit [facility] [address] [place] [address] Mirlande Murphy MD [address] [place] [address] 08/25/2025 10:00 AM EST [facility] [address] [place] [address] Mirlande Murphy MD [address] [place] [address] documented as of this encounter Visit Diagnoses Not on filedocumented in this encounter Additional Health Concerns Assessment Noted Time A fall risk assessment has been complete d for the patient 12/04/2020 10:55 AM EDT documented as of this encounter Care Teams Fountain Pen Nibs Inspector Relationship Specialty Start Date End Date Brandon Lindsay MD PCP - General 03/14/11 Jenn Mancilla DO Physician Internal Medicine-Cardiovascular Disease 09/26/13 Emily Le APRN Nurse Practitioner Nurse Practitioner 10/23/14 Mirlande Murphy MD [address] [place] [address] Internal Medicine-Rheumatology 11/10/22 documented as of this encounter
--- OUTSIDE RECORDS SUMMARY | 2025-06-10 11:17 | XMS_ITS | Continuity of Care Document ---
Author Organization [facility] Address [facility] [place] [address] Phone Care Team Providers Care Plan Checker Name Role Phone Brandon Lindsay MD Primary Care Provider [phone] Jenn Mancilla DO Unavailable Emily Le VETERINARY X RAY OPERATOR Unavailable [phone] Mirlande Murphy MD Unavailable Encounters Date Type Department Care Team Description 05/26/2025 Results Follow[facility]Up [facility] [address] [place] [address] Mirlande Murphy MD CBC WITH AUTO DIFF-QUEST, CREATININE-QUEST, HEPATIC FUNCTION PANEL-QUEST, Additional followed-up results: 7 05/21/2025 11:45 AM EDT Office [facility] [address] [place] [address] Mahi Walker MA Osteoarthrosis, generalized, involving multiple sites (Primary Dx); Rheumatoid arthritis, involving unspecified site, 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 rheumatoid factor present (HCC) 05/20/2025 1:00 PM EDT Office [facility] [address] [place] [address] Mirlande Murphy MD Pain and swelling of right knee (Primary Dx); Chronic gout without tophus, unspecified cause, unspecified site; Psoriasis; PA (psoriatic arthritis) (HCC); Osteoarthrosis, generalized, involving multiple sites; 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 current use of systemic steroids; Encounter for long-term (current) use of medications; Type 2 diabetes mellitus with other specified complication, 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 intermediate insulin use ([facility]) 04/22/2025 Results [facility] [address] [place] [address] Mirlande Murphy MD CBC WITH AUTO DIFF-QUEST, CREATININE-QUEST, HEPATIC FUNCTION PANEL-QUEST, Additional followed-up results: 4 04/21/2025 9:00 AM EDT Office Visit [facility] [address] [place] [address] Mirlande Murphy MD Chronic gout without tophus, unspecified cause, unspecified site (Primary Dx); PA (psoriatic arthritis) ([facility]); Psoriasis; Osteoarthrosis, generalized, involving multiple sites; 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 current use of systemic steroids; Encounter for long-term (current) use of medications; Type 2 diabetes mellitus with other specified complication, 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 intermediate insulin use ([facility]) 04/11/2025 Telephone [facility] [address] [place] [address] Tal Truong MD Reschedule 01/08/2025 2:23 PM EDT - 01/08/2025 11:59 PM EDT Hospital Encounter [facility] [address] [place] [address] Brandon Lindsay MD Other screening mammogram Discharge Disposition: Home or Self Care 12/30/2024 Telephone [facility] [address] [place] [address] Mahi Walker MA Joint Pain (Steroids for flare) 12/25/2024 Results Follow-Up [facility] [address] [place] [address] Mirlande Murphy MD CBC WITH AUTO DIFF-QUEST, CREATININE-QUEST, HEPATIC FUNCTION PANEL-QUEST, Additional followed-up results: 4 12/24/2024 9:40 AM EDT Office Visit [facility] [address] [place] [address] Mirlande Murphy MD Chronic gout without tophus, unspecified cause, unspecified site (Primary Dx); PA (psoriatic arthritis) ([facility]); Psoriasis; Osteoarthrosis, generalized, involving multiple sites; 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 current use of systemic steroids; Encounter for long-term (current) use of medications; Type 2 diabetes mellitus with other specified complication, 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 intermediate insulin use (HCC); Chronic pain of left ankle; Pain and swelling of left knee 10/26/2024 9:41 AM EST - 10/26/2024 11:59 PM EST Hospital Encounter [place] [address] [place] [address] Patrick Proctor APRN LLQ pain Discharge Disposition: Home or Self Care 10/25/2024 8:20 AM EST Office Visit [facility] [address] [place] [address] Patrick Proctor APRN LLQ pain (Primary Dx) 10/24/2024 Travel 09/26/2024 11:20 AM EST Office Visit [facility] [address] [place] [address] Mirlande Murphy MD Psoriasis (Primary Dx); PA (psoriatic arthritis) ([facility]); Chronic gout without tophus, unspecified cause, unspecified site; Osteoarthrosis, generalized, involving multiple sites; senior care current use of systemic steroids; Encounter for long-term (current) use of medications 09/11/2024 Refill [facility] [address] [place] [address] Mirlande Murphy MD Medication Refill 08/14/2024 Refill [facility] [address] [place] [address] Mirlande Murphy MD Medication Refill 08/14/2024 4:20 PM EST Office Visit [facility] [address] [place] [address] Linda Alfaro MA Osteoarthrosis, generalized, involving multiple sites (Primary Dx) 06/15/2024 Refill [facility] [address] [place] [address] Mirlande Murphy MD Medication Refill 05/07/2024 10:00 AM EDT Office Visit [facility] [address] [address] Lynsey Mendez APRN Unspecified essential hypertension (Primary Dx); Atrial fibrillation with rapid ventricular response (HCC); Rheumatoid arthritis, involving unspecified site, 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 rheumatoid factor present (HCC); Hyperlipidemia, unspecified hyperlipidemia type 04/22/2024 11:00 AM EDT Office Visit [facility] [address] [place] [address] Mirlande Murphy MD Chronic gout without tophus, unspecified cause, unspecified site (Primary Dx); Osteoarthrosis, generalized, involving multiple sites; PA (psoriatic arthritis) ([facility]); Menopausal and postmenopausal disorder; Psoriasis; 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 current use of systemic steroids; Encounter for long-term (current) use of medications; Type 2 diabetes mellitus with other specified complication, 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 (HCC) 03/13/2024 11:40 AM EDT Office Visit [facility] [address] [place] [address] Mirlande Murphy MD Chronic gout without tophus, unspecified cause, unspecified site (Primary Dx); PA (psoriatic arthritis) ([facility]); Osteoarthrosis, generalized, involving multiple sites; Menopausal and postmenopausal disorder; senior care current use of systemic steroids; Encounter for long-term (current) use of medications 02/05/2024 Refill [facility] [address] [place] [address] Mirlande Murphy MD Medication Refill 01/04/2024 Refill [facility] [address] [place] [address] Mirlande Murphy MD Medication Refill 12/20/2023 1:20 PM EDT Office Visit [facility] [address] [place] [address] Mirlande Murphy MD PA (psoriatic arthritis) ([facility]) (Primary Dx); Osteoarthrosis, generalized, involving multiple sites; Menopausal and postmenopausal disorder; Pain and swelling of right knee; 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 current use of systemic steroids; Encounter for long-term (current) use of medications; Type 2 diabetes mellitus with other specified complication, 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 ([facility]); Chronic gout without tophus, unspecified cause, unspecified site; Chronic left shoulder pain; Pain and swelling of left knee 11/07/2023 [place] [address] Tal Truong MD Medication Refill 11/03/2023 Refill [facility] [address] [place] [address] Mirlande Murphy MD Medication Refill 10/11/2023 8:45 AM EST [place] [address] Tal Truong MD Essential hypertension (Primary Dx); Atrial flutter, unspecified type (HCC) 10/10/2023 Travel 09/20/2023 1:20 PM EST Office Visit [facility] [address] [place] [phone] Mirlande Murphy MD PA (psoriatic arthritis) (HCC) (Primary Dx); Chronic gout without tophus, unspecified cause, unspecified site; Osteoarthrosis, generalized, involving multiple sites; Rheumatoid arthritis, involving unspecified site, 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 rheumatoid factor present (HCC); senior care current use of systemic steroids; Encounter for long-term (current) use of medications; Psoriasis 08/07/2023 1:40 PM EST Office Visit [facility] [address] [place] [phone] Mirlande Murphy MD Chronic gout without tophus, unspecified cause, unspecified site (Primary Dx); PA (psoriatic arthritis) (HCC); 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 M[facility] [address] [place] [address] Brandon Lindsay MD Encounter for screening mammogram for malignant neoplasm of breast Discharge Disposition: Home or Self Care 05/15/2023 [place] [address] Tal Truong MD Medication Refill 04/17/2023 1:00 PM EDT Office Visit [facility] [address] [place], [place] [phone] Mirlande Murphy MD Chronic gout without tophus, unspecified cause, unspecified site (Primary Dx); Osteoarthrosis, generalized, involving multiple sites; PA (psoriatic arthritis) (HCC); Menopausal and postmenopausal disorder; 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 [place] [facility] [address] [place] [address] Brandon Lindsay MD Weakness Discharge Disposition: Home or Self Care 02/01/2023 6:35 AM EDT - 02/01/2023 6:36 AM EDT Hospital Encounter [facility] [address] [place] [address] Brandon Lindsay MD Weakness Discharge Disposition: Home or Self Care 01/25/2023 [facility] [address] [place] [address] Alyssa Robbins MA Lab Orders 01/16/2023 11:40 AM EDT Office Visit [facility] [address] [place] [address] Mirlande Murphy MD Chronic gout without tophus, unspecified cause, unspecified site (Primary Dx); Osteoarthrosis, generalized, involving multiple sites; PA (psoriatic arthritis) (HCC); senior care current use of systemic steroids; Menopausal and postmenopausal disorder; Encounter for long-term (current) use of medications 12/13/2022 Travel 12/13/2022 10:22 AM EDT - 12/13/2022 11:59 PM EDT Hospital Encounter [facility] [address] [place] [address] Mirlande Murphy MD Pain and swelling of right knee Discharge Disposition: Home or Self Care 11/16/2022 Orders Only [facility] [address] [place] [address] Mirlande Murphy MD 11/16/2022 1:30 PM EDT Office Visit [facility] [address] [place] [address] Mirlande Murphy MD PA (psoriatic arthritis) (HCC) (Primary Dx); Chronic gout without tophus, unspecified cause, unspecified site; Menopausal and postmenopausal disorder; Osteoarthrosis, generalized, involving multiple sites; Encounter for long-term (current) use of medications; Pain and swelling of right knee; senior care current use of systemic steroids 11/15/2022 [place] [address] Tal Truong MD Medication Refill 10/19/2022 Orders Only [facility] [address] [place] [address] Mirlande Murphy MD 10/19/2022 Abstract [facility] [address] [place] [address] Mirlande Murphy MD PA (psoriatic arthritis) (HCC); Chronic gout without tophus, unspecified cause, unspecified site; Osteoarthrosis, generalized, involving multiple sites; Encounter for long-term (current) use of medications; Menopausal and postmenopausal disorder 10/05/2022 9:45 AM EST - 10/05/2022 11:59 PM EST Hospital Encounter [facility] DEXA [address] [place] [address] Mirlande Murphy MD Osteoporosis, post-menopausal Discharge Disposition: Home or Self Care 09/30/2022 9:00 AM EST Office [place] [address] Tal Truong MD Atrial flutter, unspecified type (HCC) (Primary Dx); Essential hypertension; Pericardial effusion 09/28/2022 Orders Only [facility] [address] [place] [address] Mirlande Murphy MD 09/28/2022 Travel 09/28/2022 3:15 PM EST - 09/28/2022 11:59 PM EST Hospital Encounter [facility] [place] [address] Low back pain, unspecified back pain laterality, unspecified chronicity, 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 sciatica present; Arthralgia of both hands; Hip pain, bilateral; Bilateral low back pain, unspecified chronicity, 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 sciatica present; Arthralgia of both knees Discharge Disposition: Home or Self Care 04/25/2022 [place] [address] Tal Truong MD Medication Refill 04/21/2022 Refill [facility] [place] [address] [address] Tal Truong MD Medication Refill 03/25/2022 9:00 AM EDT Office [place] [address] Tal Truong MD Atrial flutter, unspecified type (HCC) (Primary Dx); Essential hypertension 03/21/2022 [place] [address] Tal Truong MD Medication Refill 03/19/2022 Refill [facility] [place] [address] [address] Tal Truong MD Medication Refill 12/07/2021 Travel 12/07/2021 10:41 AM EDT - 12/07/2021 11:59 PM EDT Hospital Encounter [facility] Mammography [address] [place] [address] Brandon Lindsay MD Encounter for screening mammogram for malignant neoplasm of breast Discharge Disposition: Home or Self Care 11/17/2021 Travel 11/17/2021 1:50 PM EDT - 11/17/2021 11:59 PM EDT Hospital Encounter [facility] [address] [place] [address] Trish Doan APRN LLQ pain Discharge Disposition: Home or Self Care 11/11/2021 10:55 AM EDT Office Visit [facility] [address] [place] [address] Trish Doan APRN LLQ pain 10/26/2021 Travel 10/26/2021 12:01 PM EST - 10/26/2021 11:59 PM EST Hospital Encounter [facility] [address] [facility] [address] [place] [id number] Lynsey Mendez APRN Pericardial effusion Discharge Disposition: Home or Self Care 09/20/2021 Telephone [facility] [place] [address] [facility] [address] [place] [address] Tal Truong MD Medication Refill (Refill on Xarelto 20 mg send to [facility] call [phone]) 09/09/2021 10:00 AM EST Telemedicine [facility] [address] [place] [address] Lynsey Mendez APRN Pericardial effusion (Primary Dx); Essential hypertension; Atrial flutter, unspecified type (HCC); Rheumatoid arthritis, involving unspecified site, 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 rheumatoid factor present (HCC) 08/25/2021 Telephone [facility] [place] [address] [facility] [address] [place] [address] Tal Truong MD Other (NEEDS APPOINTMENT/HOSP FU) 08/24/2021 Travel 08/24/2021 Telephone [facility] [address] [facility] [address] [place] [phone] Jay Jay Boles MD Appointment Needed 08/24/2021 12:32 AM EST - 08/24/2021 7:03 PM EST Emergency [facility] [place] [address] Jatin Reed MD Sugimoto, Maxime Oneil MD Atrial fibrillation with rapid ventricular response (HCC) (Primary Dx) Discharge Disposition: Home or Self Care 03/18/2021 Travel 03/18/2021 1:00 PM EDT Office Visit [facility] [address] [facility] [address] [place] [address] Richmond Peterson, PATRICIA Postop check (Primary Dx) 01/29/2021 Travel 01/29/2021 11:00 AM EDT Office Visit [facility] [address] [facility] [address] [place] [address] Richmond Peterson NP Postop check (Primary Dx) 01/22/2021 Telephone [facility] [address] [facility] [address] [place] [address] Denisse Guzman, RMPriya Advice Only 01/09/2021 5:59 AM EDT - 01/12/2021 6:51 PM EDT Hospital Encounter [facility] [address] [place] [address] [place] [address] Jatin Conte MD Paresthesia of left upper and lower extremity; Paresthesia of left upper and lower extremity Discharge Disposition: Home or Self Care 01/09/2021 Travel 01/09/2021 8:00 AM EDT - 01/09/2021 11:00 AM EDT [facility] [place] [address] Jatin Conte MD DAVINCI ROBOTIC LAPAROSCOPY LOW ANTERIOR COLON RESECTION 01/09/2021 8:09 AM EDT Anesthesia Event [facility] [place] [address] Ahsan Ruiz, Teetee Mcguire, VETERINARY X RAY OPERATOR 01/05/2021 9:49 AM EDT - 01/05/2021 11:59 PM EDT Hospital Encounter [facility] [place] [address] [place] [address] Covid19, [facility] [place] Pre-op testing; Encounter for laboratory testing for COVID-19 virus Discharge Disposition: Home or Self Care 12/31/2020 Travel 12/31/2020 12:48 PM EDT - 12/31/2020 11:59 PM EDT Hospital Encounter [facility] PRE-ADMIT TESTING [facility] [place] [address] Preop testing (Primary Dx); Diverticulitis Discharge Disposition: Home or Self Care 12/22/2020 11:28 PM EDT - 12/23/2020 6:47 PM EDT Hospital Encounter [place] [address] Francisco Javier Givens MD Connelly, Kevin D, MD Pleuritic chest pain (Primary Dx) Discharge Disposition: Home or Self Care 12/22/2020 Travel 12/18/2020 Travel 12/11/2020 Telephone [facility] [address] [facility] [address] [place] [address] Angelito Sultana, Scribe Medication Problem 12/11/2020 Telephone [facility] [address] [facility] [address] [place] [address] Angelito Sultana, Scribe Surgery 12/07/2020 Telephone [facility] [address] [facility] [address] [place] [address] Angelito Sultana, Scribe Medication Problem 12/07/2020 Orders Only [facility] [address] [address] Angelito Sultana, Scribe Paresthesia of left upper and lower extremity (Primary Dx) 12/07/2020 Telephone [facility] [address] [facility] [address] [place] [address] Angelito Sultana, Scribe Surgery 12/04/2020 Travel 12/04/2020 11:00 AM EDT Office Visit [facility] [address] [address] Jatin Conte MD Paresthesia of left upper and lower extremity (Primary Dx); Diverticulitis of large intestine without bleeding, unspecified complication status 11/16/2020 11:19 PM EDT - 11/20/2020 1:25 PM EDT Hospital Encounter [facility] [address] [place] [address] [place] [address] Gloria Rosas, Pérez Hill Jr., MD Colonic diverticular abscess (Primary Dx) Discharge Disposition: Home or Self Care 11/16/2020 4:58 PM EDT - 11/16/2020 11:18 PM EDT Hospital Encounter [facility] [address] [place] [address] Denis Mullins MD Diverticulosis of large intestine without diverticulitis; Diverticulitis of large intestine, unspecified bleeding status, unspecified complication status Discharge Disposition: Home or Self Care 11/16/2020 Travel 06/17/2020 Travel 06/17/2020 10:27 AM EDT - 06/17/2020 11:59 PM EDT Hospital Encounter [facility] Mamm[facility] [address] [place], [place] [id number] Brandon Lindsay MD Encounter for screening mammogram for malignant neoplasm of breast Discharge Disposition: Home or Self Care 06/16/2020 Travel 03/06/2020 3:26 PM EDT - 03/06/2020 11:59 PM EDT Hospital Encounter [facility] [address] [place] [address] Trish Doan APRN Abdominal pain, left lower quadrant; Diverticulosis of large intestine without diverticulitis Discharge Disposition: Home or Self Care 03/06/2020 Travel 05/27/2019 3:07 PM EDT - 05/27/2019 11:59 PM EDT Hospital Encounter [facility] [address] [place] [address] Denis Mullins MD Diverticula of colon Discharge Disposition: Home or Self Care 03/22/2019 11:09 AM EDT - 03/22/2019 11:59 PM EDT Hospital Encounter [facility] [address] [facility] [place] [id number] Brandon Lindsay MD Diverticular disease of intestine with perforation and abscess Discharge Disposition: Home or Self Care 03/06/2019 4:07 PM EDT - 03/08/2019 11:00 AM EDT Hospital Encounter [facility] [address] [place] [address] Ike Fields MD Paul, Gautam, MD Diverticulitis of large intestine with perforation, unspecified bleeding status (Primary Dx) Discharge Disposition: Home or Self Care 03/06/2019 Travel 03/06/2019 Telephone [facility] [place] [address] [place] [phone] Kelsey Khan, RT Results 03/06/2019 Telephone [facility] [address] [place] [phone] Kelsey Khan, RT Results 03/06/2019 11:40 AM EDT - 03/06/2019 1:11 PM EDT Hospital Encounter [facility] [address] [place] [phone] LLQ abdominal pain Discharge Disposition: Home or Self Care 03/06/2019 1:12 PM EDT - 03/06/2019 4:06 PM EDT Hospital [place] [address] Josiane Ravi MD LLQ pain Discharge Disposition: Home or Self Care 03/06/2019 10:45 AM EDT Office Visit [facility] [address] [place] [phone] Josiane Ravi MD Possible urinary tract infection (Primary Dx); LLQ abdominal pain; LLQ pain; Perforated diverticulum of large intestine 02/11/2019 2:35 PM EDT - 02/11/2019 11:59 PM EDT Hospital Encounter [place] [address] [address] [facility] [place] [address] Brandon Lindsay MD Encounter for screening mammogram for malignant neoplasm of breast Discharge Disposition: Home or Self Care 02/02/2018 10:23 AM EDT - 02/02/2018 11:59 PM EDT Hospital Encounter [facility] [address] Brandon Lindsay MD Encounter for screening mammogram for malignant neoplasm of breast Discharge Disposition: Home or Self Care 09/18/2017 8:30 AM EST Office Visit [facility] [address] [place] [address] Tessa Kidd MD Frequency of urination (Primary Dx); Hematuria, unspecified type; Cystocele, midline; Urge incontinence 08/04/2017 5:30 PM EST Office Visit [facility] [place] [address] [place] [address] Pratima Sandoval ARNP Elevated blood pressure reading (Primary Dx) 09/16/2016 11:06 AM EST - 09/16/2016 11:59 PM EST Hospital Encounter [facility] [place] [address] Jeri Steiner MD Visit for screening mammogram Discharge Disposition: Home or Self Care 08/12/2016 11:20 AM EST [facility] Visit [facility] [address] [place] [address] Jeri tSeiner MD Encounter for well woman exam with routine gynecological exam (Primary Dx); Encounter for screening mammogram for breast cancer; Menopause; Disorder of cartilage 01/28/2016 9:07 AM EDT - 01/28/2016 11:59 PM EDT Hospital Encounter [facility] [address] [place] [address] Bacterial infection due to Helicobacter pylori (Primary Dx) Discharge Disposition: Home or Self Care 07/02/2015 12:20 PM EST - 07/02/2015 11:59 PM EST Hospital Encounter [facility] [place] [address] Asher Jacob MD Screening Discharge Disposition: Home or Self Care 02/07/2015 10:17 AM EDT - 02/07/2015 11:51 AM EDT Emergency [facility] [address] [place] [address] Rito Garg MD Fracture of distal fibula (Primary Dx) Discharge Disposition: Home or Self Care 01/23/2015 10:00 AM EDT Office Visit [facility] [address] [place] [address] Emily Le APRN Essential hypertension (Primary Dx); Palpitations 10/27/2014 Telephone [facility] [address] [place] [address] Jenn Mancilla DO Medication Refill 10/24/2014 9:40 AM EST Office Visit [facility] [address] [place] [address] Emily Le APRN Chest pain (Primary Dx); Palpitations; Unspecified essential hypertension; Hyperlipidemia 10/03/2014 1:45 PM EST - 10/03/2014 2:45 PM EST Surgery Jenn Mancilla DO CARDIAC PROCEDURE-RECORDS SECTION SUPERVISOR ONLY 10/02/2014 6:38 AM EST - 10/03/2014 7:56 PM EST Hospital Encounter [facility] 5D [facility] [place] [address] Sandra Kuhn MD Sandhu, Trav Kwok MD Chest pain (Primary Dx); Palpitations Discharge Disposition: Home or Self Care 05/23/2014 12:37 PM EDT - 05/23/2014 11:59 PM EDT Hospital Encounter [facility] [place] [address] Asher Jacob MD Other screening mammogram Discharge Disposition: Home or Self Care 10/18/2013 11:05 AM EST Office Visit [facility] [address] [place] [address] Jenn Mancilla DO Chest pain (Primary Dx); Diastolic dysfunction; HTN (hypertension); Dyslipidemia 10/15/2013 Telephone [facility] [address] [place] [address] Jenn Mancilla DO Cancellation 08/26/2013 7:04 AM EST - 08/26/2013 11:59 PM EST Hospital Encounter [facility] STRESS [address] [place] [address] Jenn Mancilla DO Chest pain, unspecified; Unspecified essential hypertension; Other and unspecified hyperlipidemia Discharge Disposition: Home or Self Care 08/26/2013 7:04 AM EST - 08/26/2013 11:59 PM EST Hospital Encounter [facility] [address] [place] [address] CharoJenn, DO Chest pain, unspecified; Unspecified essential hypertension; Other and unspecified hyperlipidemia Discharge Disposition: Home or Self Care 08/22/2013 Orders Only [facility] [address] [place] [address] Charo, Jenn, DO Chest pain, unspecified (Primary Dx); Unspecified essential hypertension; Other and unspecified hyperlipidemia; Other specified inflammatory polyarthropathies (HCC) 08/22/2013 12:46 PM EST Hospital Encounter [facility] ECHO [address] [place] [address] CharoJenn, DO Chest pain; WILSON (dyspnea on exertion); HTN (hypertension); Hyperlipidemia; Rheumatoid aortitis (HCC) Discharge Disposition: Home or Self Care 08/12/2013 11:05 AM EST Office Visit [facility] [address] [place] [id number] CharoJenn, DO Chest pain (Primary Dx); WILSON (dyspnea on exertion); HTN (hypertension); Hyperlipidemia; Rheumatoid aortitis (HCC) 01/30/2013 11:27 AM EDT - 01/30/2013 2:15 PM EDT Hospital Encounter [facility] LAB [facility]IANFRANCO PROCESSING [facility] [place] [address] [place] [address] Thad Briceno MD Routine gynecological examination Discharge Disposition: Home or Self Care 01/30/2013 2:16 PM EDT - 01/30/2013 11:59 PM EDT Hospital Encounter [facility] [place] [address] [address] Asher Jacob MD Other screening mammogram Discharge Disposition: Home or Self Care 04/08/2011 7:33 AM EDT - 04/08/2011 11:59 PM EDT Hospital Encounter [facility] [place] [address] [address] Brandon Lindsay MD Atypical chest pain Discharge Disposition: Home or Self Care 04/08/2011 7:30 AM EDT - 04/08/2011 7:32 AM EDT Hospital Encounter EDG NUC MED [facility] [place] [address] Brandon Lindsay MD Atypical chest pain Discharge Disposition: Home or Self Care 03/30/2011 10:42 AM EDT - 03/30/2011 11:59 PM EDT Hospital Encounter EDG LAB GIANFRANCO PROCESSING [facility] [place] [address] [address] Thad Briceno MD Discharge Disposition: Home or Self Care 03/29/2011 2:55 PM EDT - 03/29/2011 11:59 PM EDT Hospital Encounter [facility] [place] [address] [place] [address] Asher Jacob MD Other screening mammogram Discharge Disposition: Home or Self Care 07/30/2010 8:32 PM EST - 07/30/2010 11:59 PM EST Hospital Encounter [facility] LAB GIANFRANCO PROCESSING [facility] [place] [address] [place] [address] Discharge Disposition: Home or Self Care 03/29/2010 1:44 PM EDT - 03/29/2010 11:59 PM EDT Hospital Encounter [facility] WHKY EDG Thad Briceno MD 03/29/2010 12:01 AM EDT - 03/29/2010 11:59 PM EDT Hospital Encounter [facility] BRE[facility]A [facility] EDG Asher Jacob MD 10/16/2009 6:02 AM EST - 10/16/2009 1:24 PM EST Hospital Encounter HST 4C1 Ahsan Maguire MD 10/12/2009 8:09 AM EST - 10/12/2009 11:59 PM EST Hospital Encounter [facility] EPIC CON UNK Ahsan Renteria MD 07/09/2009 12:01 AM EST - 07/09/2009 11:59 PM EST Hospital Encounter [facility] EPIC CON UNK Ahsan Renteria MD 07/02/2009 2:07 PM EST - 07/02/2009 11:59 PM EST Hospital Encounter [facility] EPIC CON UNK Ahsan Renteria MD 03/27/2009 12:16 PM EDT - 03/27/2009 11:59 PM EDT Hospital Encounter H[facility] LAB EDG Thad Briceno MD 03/27/2009 12:01 AM EDT - 03/27/2009 11:59 PM EDT Hospital Encounter [facility] BRE[facility]A [facility] EDG Asher Jacob MD 04/02/2008 6:21 AM EDT - 04/02/2008 11:59 PM EDT Hospital Encounter [facility] RADIOLOGY EDG Severino Mendez MD 03/26/2008 12:59 PM EDT - 03/26/2008 11:59 PM EDT Hospital Encounter HST LAB EDG Thad Briceno MD 03/26/2008 12:01 AM EDT - 03/26/2008 11:59 PM EDT Hospital Encounter [facility] BRE[facility]A [facility] EDG Asher Jacob MD 03/25/2008 12:01 AM EDT - 03/25/2008 11:59 PM EDT Hospital Encounter [facility] CARDIOLOGY EDG Ayo Urnea MD 03/07/2007 1:01 PM EDT - 03/07/2007 11:59 PM EDT Hospital Encounter [facility] LAB EDG Thad Briceno MD 03/06/2007 12:01 AM EDT - 03/06/2007 11:59 PM EDT Hospital Encounter [facility] BRE[facility]A CTR EDG Asher Jacob MD 10/30/2006 11:27 AM EST - 10/31/2006 2:24 PM EST Hospital Encounter HST TCA Naida Estrada MD 02/14/2006 4:40 AM EDT - 02/14/2006 11:59 PM EDT Hospital Encounter [facility]ST EPIC CON UNK EDG Asher Jacob MD 02/13/2006 12:01 AM EDT - 02/13/2006 11:59 PM EDT Hospital Encounter [facility] BRE[facility] HEA CTR EDG Asher Jacob MD 12/03/2005 Hospital Encounter [facility] MEDICINE FTT Generic, Historical Provider 08/10/2004 4:43 PM EST - 08/10/2004 11:59 PM EST Hospital Encounter [facility] BREAST [facility]A CTR EDG Asher Jacob MD 06/20/2003 Hospital Encounter [facility]ST MEDICINE FTT Generic, Historical Provider 01/22/2003 7:16 PM EDT - 01/24/2003 11:55 AM EDT Hospital Encounter HST EICU FTT Generic, Historical Provider 09/03/2002 4:45 PM EST - 09/03/2002 11:59 PM EST Hospital Encounter HST CTR WOAsher Townsend MD 09/02/2002 5:06 AM EST - 09/02/2002 11:59 PM EST Hospital Encounter HST LAB EDG Thad Briceno MD 06/08/2002 10:47 AM EDT - 06/08/2002 2:40 PM EDT Emergency [facility]ST UNKNFTT Generic, Historical Provider 10/19/2001 Hospital Encounter HST UNKNFTT Generic, Historical Provider 02/12/2001 9:59 AM EDT - 02/12/2001 11:59 PM EDT Hospital Encounter HST LAB Asher Peralta MD 02/08/2001 5:34 PM EDT - 02/08/2001 11:59 PM EDT Hospital Encounter HST LAB EDG Asher Jacob MD 01/26/2001 2:53 AM EDT - 01/26/2001 11:59 PM EDT Hospital Encounter HST CTR WOAsher Townsend MD 05/28/2000 11:01 AM EDT - 05/28/2000 11:50 AM EDT Emergency [facility]ST MAJOR ER EDG Alexi Herrera MD 04/07/1999 3:51 AM EDT - 04/07/1999 11:59 PM EDT Hospital Encounter [facility] CTR WOM Asher Charles MD 12/02/1998 10:22 PM EDT - 12/02/1998 11:59 PM EDT Hospital Encounter HST EPIC CON UNK EDG Asher Jacob MD 09/23/1997 10:45 AM EST - 09/23/1997 11:59 PM EST Hospital Encounter HST LAB EDG Thad Briceno MD 08/09/1997 2:48 AM EST - 08/09/1997 11:59 PM EST Hospital Encounter HST CTR WOM Asher Charles MD 03/15/1996 11:36 AM EDT - 03/15/1996 11:59 PM EDT Hospital Encounter [facility]ST EPIC CON UNK EDG Asher Jacob MD 03/14/1996 5:15 AM EDT - 03/14/1996 11:59 PM EDT Hospital Encounter HST EPIC CON RACHELK Asher Peralta MD 12/03/1994 2:04 PM EDT - 12/03/1994 11:59 PM EDT Hospital Encounter HST EPIC CON Asher Vila MD 12/01/1994 2:35 AM EDT - 12/01/1994 11:59 PM EDT Hospital Encounter HST EPIC CON RACHELK RAMIREZG Asher Jacob MD 04/06/1993 9:48 AM EDT - 04/06/1993 11:59 PM EDT Hospital Encounter [facility]ST EPIC CON MONICA GUZMÁNG Asher Jacob MD 12/19/1992 1:47 PM EDT - 12/19/1992 11:59 PM EDT Hospital Encounter HST EPIC CON UNK EDG Generic, Historical Provider 12/16/1991 12:36 PM EDT - 12/16/1991 11:59 PM EDT Hospital Encounter HST EPIC CON UNK EDG Generic, Historical Provider Allergies Active Allergy Reactions Criticality Noted Date Comments Amoxicillin-Pot Clavulanate Hives Low 04/08/2011 Cephalexin Hives Low 04/08/2011 Fexofenadine-Pseudoephe drine Shortness Of Breath,Palpitations Low 04/08/2011 Metronidazole Other (See Comments) Low 11/16/2020 Did something to the nerves in my face Still has residual effects of last time medication was taken. [place] Palsy type of symptoms. Whole left side of body tingling. Medications hydrochlorothiazi de (HYDRODIURIL) 25 mg Oral TabletIndications :Unspecified essential hypertension Take 0.5 Tabs by mouth daily. 5 Active LORazepam (ATIVAN) 0.5 mg Oral Tablet Take 0.5-1 mg by mouth every 6 hours as needed for Anxiety. Active famotidine (PEPCID) 20 mg Oral Tablet Take 20 mg by mouth 2 times daily. Active Saccharomyces boulardii (FLORASTOR) 250 mg Oral Capsule Take 500 mg by mouth 2 times daily. Active metoprolol succinate ER (TOPROL-XL) 100 mg Oral Tablet Sustained Release 24 hr Take 100 mg by mouth daily. Active acetaminophen (TYLENOL) 500 mg Oral Tablet Take 500 mg by mouth every 6 hours as needed for Pain (arthritis). Active hydrALAZINE (APRESOLINE) 50 mg Oral Tablet Take 1 Tablet by mouth 2 times daily. 1 Active Cholecalciferol, Vitamin D3, 50 mcg (2,000 unit) Oral Tablet Take 100 mcg by mouth. Active metFORMIN (GLUCOPHAGE) 500 mg Oral Tablet 500 mg 2 times daily. 3 Active rivaroxaban (XARELTO) 20 mg Oral Tablet TAKE 1 TABLET BY MOUTH DAILY. 90 Tablet 1 4 Active allopurinoL (ZYLOPRIM) 300 mg Oral TabletIndications :Chronic gout without tophus, unspecified cause, unspecified site Take 1 Tablet by mouth daily. 120 Tablet 5 Active allopurinoL (ZYLOPRIM) 100 mg Oral TabletIndications :Chronic gout without tophus, unspecified cause, unspecified site combine with 300 mg daily ( total dose 400 mg daily ) 30 Tablet 2 5 Active predniSONE (DELTASONE) 10 mg Oral TabletIndications :Pain and swelling of right knee Take 4 Tablets by mouth daily for 4 days, THEN 3 Tablets daily for 4 days, THEN 2 Tablets daily for 4 days, THEN 1 Tablet daily for 4 days. 30 Tablet 2 5 06/05/20 25 Hospital, Clinic, or Other Facility Administered Medication Ordered Dose Route Frequency Start Date End Date Status lidocaine 1% 10 mg/mL (1 %) injection 2 mLIndications:Pain and swelling of right knee 2 mL INFILTRATION ONCE 05/20/2025 05/20/2025 Ended methylPREDNISolone acetate (DEPO-Medrol) injection 40 mgIndications:Osteoa rthrosis, generalized, involving multiple sites,Rheumatoid arthritis, involving unspecified site, 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 rheumatoid factor present (HCC) 40 mg IM ONCE 05/21/2025 05/21/2025 Ended methylPREDNISolone acetate (DEPO-Medrol) injection 80 mgIndications:Osteoa rthrosis, generalized, involving multiple sites,Rheumatoid arthritis, involving unspecified site, 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 rheumatoid factor present (HCC) 80 mg IM ONCE 05/21/2025 05/21/2025 Ended Active Problems Problem Noted Date Diagnosed Date senior care current use of systemic steroids 11/16 Overview (05/20/2025): - Discussed risks and benefits of steroids (prednisone, methylprednisolone). 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 and psychiatric behavioral reactions (apathy, irritability, psychosis), [...] - right knee aspiration: 18 ml fluid-05/20/25 Pain and swelling of right knee 11/16/2022 PA (psoriatic arthritis) 10/19/2022 Overview (10/19/2022): - side effects of GI intolerance to methotrexate and sulfasalazine - no active skin disease or enthesitis or inflammatory arthritis Gout, unspecified 10/19/2022 Overview (09/26/2024): - on allopurinol 300 mg daily - gout flare in 03/20, involved bilateral ankles and feet,dose of allopurinol was increased from 200 mg to 300 mg daily - The diagnosis of gouty arthritis was discussed. I did discuss modifiable risk factors, mainly food and weight. The association was discussed of gout and food containing high uric acid, particularly meat, shellfish, and alcohol. The importance of dietary modification and weight reduction was discussed. Osteoarthrosis, generalized, involving multiple sites 10/19/2022 Overview (10/19/2022): - bilateral knees, bilateral hands - OA [...] help slow the progression of degeneration and reduce pain. Symptom relief options with medications were reviewed, including NSAID and non-NSAID medication options. Injection options were reviewed, including the use of steroid injections, or visco-supplementation with medications like Supartz. - The risks of prednisone were reviewed by me with the patient, including (but not limited to) weight gain, osteoporosis acceleration, bone fractures, a-vascular necrosis, elevated blood sugars, and cataract acceleration. Encounter for long-term (current) use of medicat ions 10/19/2022 Overview (04/17/2023): - Allopurinol- side effects of hypersensitivity reactions, severe skin reactions like SJS, TEN, DRESS, exfoliative dermatitis, agranulocytosis, myelosuppression, aplastic anemia, thrombocytopenia, vasculitis, hepatotoxicity, renal impairment, seizures, peripheral neuropathy, diarrhea, nausea, urticaria, transaminitis, eosinophilia discussed Menopausal and postmenopausal disorder Overview (10/19/2022): - DEXA scan 10/05/22- normal BMD LLQ pain 11/11/2021 Assessment & Plan (11/11/2021 11:34 AM EDT): With prior hx of sigmoid diverticulitis complicated by adjacent abscess s/p sigmoidectomy in December 2020. With recurrent LLQ pain that has been intermittent for few months. Feels similar to prior diverticulitis. Last Colonoscopy 2018 and recall recommended in 10 years. She does have mild TTP on exam. This could be d/t recurrent diverticulitis or possibly adhesions. Will get CT scan a/p for further evaluation. If CT neg we discussed adding Metamucil daily. Atrial fibrillation with rapid ventricular respo nse 08/24/2021 Pleuritic chest pain 12/23/2020 Paresthesia of left upper and lower extremity Overview (12/07/2020): Added automatically from request for surgery [id number] Colonic diverticular abscess 11/17/2020 RA (rheumatoid arthritis) 10/02/2014 Unspecified essential hypertension 08/22/2013 Overview (10/02/2014): Resume home meds Hyperlipidemia 08/22/2013 Resolved Problems Problem Noted Date Diagnosed Date Resolved Date Perforation of sigmoid colon due to diverticulitis 03/06/2019 11/17/2020 Palpitations 10/02/2014 11/17/2020 Tachycardia 10/02/2014 11/17/2020 Chest pain, unspecified 08/22/201310/27 Overview (10/04/2014): Chest pain with tachycardia Troponin - neg ekg - non specific changes, ST depression seen on old EKG tsh - ok CTA chest - . Abnormal left anterior descending coronary artery with calcific plaque at the origin and approximately 50% luminal narrowing but with potential higher grade stenosis at the first Diagonal. 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) 08/22/2013 08/22/2013 Chest pain 11/17/2020 Family History Medical History Relation Name Comments Heart Attack Brother 1 Heart Surgery Brother 1 cabg High Cholesterol Brother 1 Hypertension Brother 1 Asthma Brother 2 High Cholesterol Brother 2 Hypertension Brother 2 Heart Failure Father Hypertension Father Heart Attack Mother Hypertension Mother Cancer Sister 1 High Cholesterol Sister 1 Hypertension Sister 1 Ovarian Cancer Sister 1 Ovarain cance r Asthma Sister 2 Hypertension Sister 2 Anesth Problems Neg Hx Relation Name Status Comments Brother 1 Alive Brother 2 Alive Father Mother Sister 1 Alive Sister 2 Alive Social History Smoking Status as of 06/10/2025 Tobacco Use Types Packs/Day Years Used Date Smoking Tobacco: Never Assessed Sex and Gender Information Value Date Recorded Sex Assigned at Not on file Legal Sex Female 3:00 PM EDT Gender Identity Not on file Sexual Orientation Not on file Last Filed Vital Signs Vital Sign Reading Time Taken Comments Blood Pressure 142/76 05/20/2025 12:31 PM EDT Pulse 60 10/25/2024 8:08 AM EST Temperature 36.6 C (97.9 F) 05/20/2025 12:31 PM EDT Respiratory Rate 16 10/25/2024 8:08 AM EST Oxygen Saturation 98% 05/07/2024 9:50 AM EDT Inhaled Oxygen Concentration - - Weight 72.1 kg (159 lb) 05/20/2025 12:31 PM EDT Height 154.9 cm (5' 1 ) 05/20/2025 12:31 PM EDT Body Mass Index 30.04 05/20/2025 12:31 PM EDT Plan of Treatment Upcoming Encounters Date Type Department Care Team (Late st Contact Info) Description 06/17/2025 10:00 AM EDT Office Visit [facility] [address] [place] [address] Mirlande Murphy MD [address] [place] [address] 08/25/2025 10:00 AM EST Office Visit [facility] [address] [place] [address] Mirlande Murphy MD [address] [place] [address] Procedures Procedure Name Priority Date/Time Associated Diagnosis Comments CRYSTALS, SYNOVIAL FLUID-QUEST Routine 05/20/2025 2:27 PM EDT CELL COUNT AND DIFFERENTIAL, SYNOVIAL FLUID-QUEST Routine 05/20/2025 2:27 PM EDT CULTURE, AEROBIC BACTERIA-QUEST Routine 05/20/2025 2:27 PM EDT CULTURE, ANAEROBIC BACTERIA WITH GRAM STAIN-QUEST Routine 05/20/2025 2:27 PM EDT C REACTIVE PROTEIN-QUEST Routine 05/20/2025 1:16 PM EDT Pain and swelling of right knee SEDIMENTATION RATE AUTOMATED-QUEST Routine 05/20/2025 1:16 PM EDT Pain and swelling of right knee URIC ACID-QUEST Routine 05/20/2025 1:16 PM EDT Pain and swelling of right knee HEPATIC FUNCTION PANEL-QUEST Routine 05/20/2025 1:16 PM EDT Pain and swelling of right knee CREATININE-QUEST Routine 05/20/2025 1:16 PM EDT Pain and swelling of right knee CBC WITH AUTO DIFF-QUEST Routine 05/20/2025 1:16 PM EDT Pain and swelling of right knee C REACTIVE PROTEIN-QUEST Routine 04/21/2025 9:28 AM EDT PA (psoriatic arthritis) (HCC) Encounter for long-term (current) use of medications SEDIMENTATION RATE AUTOMATED-QUEST Routine 04/21/2025 9:28 AM EDT PA (psoriatic arthritis) (HCC) Encounter for long-term (current) use of medications HEMOGLOBIN [id number] Routine 04/21/2025 9:28 AM EDT Chronic gout without tophus, unspecified cause, unspecified site Encounter for long-term (current) use of medications Type 2 diabetes mellitus with other specified complication, 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 (HCC) URIC ACID-QUEST Routine 04/21/2025 9:28 AM EDT Chronic gout without tophus, unspecified cause, unspecified site Encounter for long-term (current) use of medications HEPATIC FUNCTION PANEL-QUEST Routine 04/21/2025 9:28 AM EDT Chronic gout without tophus, unspecified cause, unspecified site Encounter for long-term (current) use of medications CREATININE-QUEST Routine 04/21/2025 9:28 AM EDT Chronic gout without tophus, unspecified cause, unspecified site Encounter for long-term (current) use of medications CBC WITH AUTO DIFF-QUEST Routine 04/21/2025 9:28 AM EDT Chronic gout without tophus, unspecified cause, unspecified site Encounter for long-term (current) use of medications MM MAMMO DIGITAL KARELY SCREEN BILAT Routine 01/08/2025 2:39 PM EDT Other screening mammogram HEMOGLOBIN [id number] Routine 12/24/2024 10:01 AM EDT Chronic gout without tophus, unspecified cause, unspecified site Encounter for long-term (current) use of medications Type 2 diabetes mellitus with other specified complication, 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 (HCC) C REACTIVE PROTEIN-QUEST Routine 12/24/2024 10:01 AM EDT Chronic gout without tophus, unspecified cause, unspecified site Encounter for long-term (current) use of medications SEDIMENTATION RATE AUTOMATED-QUEST Routine 12/24/2024 10:01 AM EDT Chronic gout without tophus, unspecified cause, unspecified site Encounter for long-term (current) use of medications URIC ACID-QUEST Routine 12/24/2024 10:01 AM EDT Chronic gout without tophus, unspecified cause, unspecified site Encounter for long-term (current) use of medications HEPATIC FUNCTION PANEL-QUEST Routine 12/24/2024 10:01 AM EDT Chronic gout without tophus, unspecified cause, unspecified site Encounter for long-term (current) use of medications CREATININE-QUEST Routine 12/24/2024 10:01 AM EDT Chronic gout without tophus, unspecified cause, unspecified site Encounter for long-term (current) use of medications CBC WITH AUTO DIFF-QUEST Routine 12/24/2024 10:01 AM EDT Chronic gout without tophus, unspecified cause, unspecified site Encounter for long-term (current) use of medications CT ABDOMEN PELVIS W CONTRAST WILMER 10/26/2024 10:15 AM EST LLQ pain URIC ACID-QUEST Routine 09/26/2024 11:41 AM EST PA (psoriatic arthritis) (HCC) Chronic gout without tophus, unspecified cause, unspecified site Encounter for long-term (current) use of medications HEPATIC FUNCTION PANEL-QUEST Routine 09/26/2024 11:41 AM EST PA (psoriatic arthritis) (HCC) Encounter for long-term (current) use of medications CREATININE-QUEST Routine 09/26/2024 11:41 AM EST PA (psoriatic arthritis) (HCC) Encounter for long-term (current) use of medications CBC WITH AUTO DIFF-QUEST Routine 09/26/2024 11:41 AM EST PA (psoriatic arthritis) (HCC) Encounter for long-term (current) use of medications HEMOGLOBIN [id number] Routine 04/22/2024 10:59 AM EDT Encounter for long-term (current) use of medications HEPATIC FUNCTION PANEL-QUEST Routine 04/22/2024 10:59 AM EDT Encounter for long-term (current) use of medications CREATININE-QUEST Routine 04/22/2024 10:59 AM EDT Encounter for long-term (current) use of medications Type 2 diabetes mellitus with other specified complication, 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 intermediate insulin use (HCC) CBC WITH AUTO DIFF-QUEST Routine 04/22/2024 10:59 AM EDT Encounter for long-term (current) use of medications C REACTIVE PROTEIN-QUEST Routine 04/22/2024 10:59 AM EDT Encounter for long-term (current) use of medications SEDIMENTATION RATE AUTOMATED-QUEST Routine 04/22/2024 10:59 AM EDT Encounter for long-term (current) use of medications URIC ACID-QUEST Routine 04/22/2024 10:59 AM EDT Chronic gout without tophus, unspecified cause, unspecified site Encounter for long-term (current) use of medications URIC ACID-QUEST Routine 03/13/2024 12:05 PM EDT Chronic gout without tophus, unspecified cause, unspecified site HEPATIC FUNCTION PANEL-QUEST Routine 03/13/2024 12:05 PM EDT Chronic gout without tophus, unspecified cause, unspecified site CREATININE-QUEST Routine 03/13/2024 12:05 PM EDT Chronic gout without tophus, unspecified cause, unspecified site CBC WITH AUTO DIFF-QUEST Routine 03/13/2024 12:05 PM EDT Chronic gout without tophus, unspecified cause, unspecified site C REACTIVE PROTEIN-QUEST Routine 03/13/2024 12:05 PM EDT Chronic gout without tophus, unspecified cause, unspecified site SEDIMENTATION RATE AUTOMATED-QUEST Routine 03/13/2024 12:05 PM EDT Chronic gout without tophus, unspecified cause, unspecified site HEMOGLOBIN [id number] Routine 12/20/2023 1:35 PM EDT Encounter for long-term (current) use of medications Type 2 diabetes mellitus with other specified complication, 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 (HCC) URIC ACID-QUEST Routine 12/20/2023 1:35 PM EDT Encounter for long-term (current) use of medications Chronic gout without tophus, unspecified cause, unspecified site HEPATIC FUNCTION PANEL-QUEST Routine 12/20/2023 1:35 PM EDT Encounter for long-term (current) use of medications CREATININE-QUEST Routine 12/20/2023 1:35 PM EDT Encounter for long-term (current) use of medications CBC WITH AUTO DIFF-QUEST Routine 12/20/2023 1:35 PM EDT Encounter for long-term (current) use of medications HEPATIC FUNCTION PANEL-QUEST Routine 09/20/2023 1:32 PM EST Chronic gout without tophus, unspecified cause, unspecified site Encounter for long-term (current) use of medications CREATININE-QUEST Routine 09/20/2023 1:32 PM EST Chronic gout without tophus, unspecified cause, unspecified site Encounter for long-term (current) use of medications URIC ACID-QUEST Routine 09/20/2023 1:32 PM EST Chronic gout without tophus, unspecified cause, unspecified site Encounter for long-term (current) use of medications CBC WITH AUTO DIFF-QUEST Routine 09/20/2023 1:32 PM EST Chronic gout without tophus, unspecified cause, unspecified site Encounter for long-term (current) use of medications MM MAMMO DIGITAL KARELY SCREEN BILAT Routine 05/29/2023 11:09 AM EDT Encounter for screening mammogram for malignant neoplasm of breast URIC ACID-QUEST Routine 04/17/2023 1:22 PM EDT Chronic gout without tophus, unspecified cause, unspecified site Encounter for long-term (current) use of medications CT HEAD WO CONTRAST Routine 02/01/2023 7:[address] ANGIOGRAM HEAD W CONTRAST Routine 02/01/2023 7:20 AM EDT Weakness URIC ACID-QUEST Routine 01/26/2023 10:34 AM EDT Encounter for long-term (current) use of medications COMPREHENSIVE METABOLIC PANEL-QUEST Routine 01/26/2023 10:34 AM EDT Encounter for long-term (current) use of medications CBC WITH AUTO DIFF-QUEST Routine 01/26/2023 10:34 AM EDT Encounter for long-term (current) use of medications URIC ACID-QUEST Routine 01/16/2023 11:59 AM EDT Encounter for long-term (current) use of medications COMPREHENSIVE METABOLIC PANEL-QUEST Routine 01/16/2023 11:59 AM EDT Encounter for long-term (current) use of medications CBC WITH AUTO DIFF-QUEST Routine 01/16/2023 11:59 AM EDT Encounter for long-term (current) use of medications MRI KNEE RIGHT WO CONTRAST Routine 12/13/2022 11:11 AM EDT Pain and swelling of right knee CLIENT EDUCATION TRACKING-QUEST Routine 11/16/2022 12:00 AM EDT CRYSTALS, SYNOVIAL FLUID-QUEST Routine 11/16/2022 12:00 AM EDT CELL COUNT AND DIFFERENTIAL, SYNOVIAL FLUID-QUEST Routine 11/16/2022 12:00 AM EDT CULTURE, AEROBIC BACTERIA-QUEST Routine 11/16/2022 12:00 AM EDT CULTURE, ANAEROBIC BACTERIA W/GRAM STAIN-QUEST Routine 11/16/2022 12:00 AM EDT C REACTIVE PROTEIN-QUEST Routine 10/19/2022 1:25 PM EST SEDIMENTATION RATE AUTOMATED-QUEST Routine 10/19/2022 1:25 PM EST DX BONE DENSITY AXIAL SKELETON Routine 10/05/2022 10:16 AM EST Osteoporosis, post-menopausal XR HAND BILATERAL PA LATERAL AND OBLIQUE Routine 09/28/2022 4:14 PM EST Arthralgia of both hands XR KNEE BILATERAL AP LATERAL AND SUNRISE STANDING Routine 09/28/2022 4:14 PM EST Low back pain, unspecified back pain laterality, unspecified chronicity, 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 sciatica present XR LUMBAR SPINE AP AND LATERAL Routine 09/28/2022 4:14 PM EST Bilateral low back pain, unspecified chronicity, 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 sciatica present Arthralgia of both knees Arthralgia of both hands XR HIPS BILATERAL AP LATERAL W AP PELVIS Routine 09/28/2022 4:14 PM EST Hip pain, bilateral VITAMIN D 25 HYDROXY-QUEST Routine 09/28/2022 2:52 PM EST C REACTIVE PROTEIN-QUEST Routine 09/28/2022 2:52 PM EST CBC WITH AUTO DIFF-QUEST Routine 09/28/2022 2:52 PM EST SEDIMENTATION RATE AUTOMATED-QUEST Routine 09/28/2022 2:52 PM EST COMPREHENSIVE METABOLIC PANEL-QUEST Routine 09/28/2022 2:52 PM EST URIC ACID-QUEST Routine 09/28/2022 2:52 PM EST MM MAMMO DIGITAL KARELY SCREEN BILAT Routine 12/07/2021 11:06 AM EDT Encounter for screening mammogram for malignant neoplasm of breast CREATININE ISTAT Routine 11/17/2021 3:[address] ABDOMEN PELVIS W CONTRAST WILMER 11/17/2021 3:24 PM EDT LLQ pain EC ECHOCARDIOGRAM LIMITED Routine 10/26/2021 12:48 PM EST Pericardial effusion SCANNED EKG 08/25/2021 12:12 PM EST EC ECHOCARDIOGRAM COMPLETE W DOPPLER AND COLOR FLOW MAPPING STAT 08/24/2021 4:02 PM EST URINALYSIS Routine 08/24/2021 1:53 PM EST UA W/REFLEX TO CULTURE Routine 08/24/2021 1:53 PM EST HEMOGLOBIN AND HEMATOCRIT Routine 08/24/2021 1:06 PM EST XR CHEST AP PORTABLE WILMER 08/24/2021 7:49 AM EST IP CONSULT TO CARDIOLOGY Routine 08/24/2021 7:29 AM EST TROPONIN-T HIGH SENSITIVITY 2HR Timed 08/24/2021 3:02 AM EST CORONAVIRUS 2019 Routine 08/24/2021 2:25 AM EST IP CONSULT TO CARDIOLOGY Routine 08/24/2021 2:16 AM EST Procedure Note - Tal Truong MD - 08/24/2021 9:03 AM ESTThis note is in progress. Name: Barb Harden Inpatient Consult to Cardiology - AFib; Stat Consult Requested: No Consult performed by: Tal Truong MD Consult ordered by: Jatin Reed MD Reason for consult: Palpitaions Assessment/Recommendations: Paroxysmal atrial flutter present in sinusrhythm Hypertension Plan Continue Toprol-XL Will initiate anticoagulation Echo for LV function Okay to discharge after echo Outpatient follow-up with the EP for ablation Remains stable Thank you for letting us to participate in the care of this patient pleasedo not hesitate to call me if you have any questions PCP:Brandon Lindsay MD 71-year-old woman with history of palpitations longstandingsymptoms somewhat more progressive lately last night presented to thespital with persistent palpitations noted to be in atrial flutter fairlyrapid rates denies any syncope no chest pain converted to normal sinusrhythm with amiodarone Presently in sinus rhythm on Toprol-XL 100 mg daily Denies any other symptoms No bleeding issues No stroke symptoms Previous stress perfusion and echo were unremarkable Past Medical History: Diagnosis Date Chest pain NUC 07/2013-METS 5.6, EF 60% Diverticulitis Heartburn Hypercholesteremia Hypertension ECHO 09/2014- EF 70-75%, MV mod mitral annular calc, trace regurg, TVtrace regurg, RVSP 39 Motion sickness Pleurisy Post-operative nausea and vomiting Rheumatoid arthritis (HCC) Past Surgical History: Procedure Laterality Date CARDIAC CATHETERIZATION 10/03/2014 No evidence of atherosclerotic coronary artery disease., Normal leftventricular systolic function and pressure. COLECTOMY N/A 01/09/2021 Robotic Sigmoidectomy; Surgeon: Jatin Conte MD; Location: [facility]; Service: Robotics COLONOSCOPY HAND SURGERY Right KNEE SURGERY Bilateral cleaned out the arthritis from my knees TUBAL LIGATION UPPER GASTROINTESTINAL ENDOSCOPY Family History Problem Relation Age of Onset Hypertension Mother Heart Attack Mother Hypertension Father Heart Failure Father Hypertension Sister High Cholesterol Sister Cancer Sister 64 Ovarain cancer Hypertension Brother High Cholesterol Brother Heart Attack Brother 50 Heart Surgery Brother cabg Hypertension Sister Asthma Sister Hypertension Brother High Cholesterol Brother Asthma Brother Anesth Problems Neg Hx Review of Systems Constitutional: Negative. HENT: Negative. Eyes: Negative. Respiratory: Negative. Cardiovascular: Positive for palpitations. Gastrointestinal: Negative. Genitourinary: Negative. Musculoskeletal: Negative. Skin: Negative. Neurological: Negative. Endo/Heme/Allergies: Negative. Psychiatric/Behavioral: Negative. Vitals: 08/24/21 0500 08/24/21 0600 08/24/21 0700 08/24/21 0745 BP: 116/77 (!) 135/92 129/81 119/64 BP Location: Right arm Patient Position: Semi Fowlers Pulse: 66 71 71 65 Resp: (!) 24 (!) 27 (!) 27 (!) 28 Temp: 98.1 F (36.7 C) TempSrc: Oral SpO2: 97% 97% 97% 95% Weight: Height: Physical Exam Gen: Looks comfortable with stable vital signs as noted. HEENT: Normal, Pupils normal in reaction, no anemia or icterus. Neck: Supple. No lymphadenopathy or thyromegaly. No carotid bruits. CV: RRR, S1 and S2 clear. No murmurs, rubs, or gallops. No JVD. Pulm: Exp wheezing. . Abd: Soft, NT/ND. No masses or organomegaly. Ext: No edema. No ecchymosis . Neuro: A&Ox3. No focal deficits. Gait and muscle strength normal. Skin: Warm and dry. No clubbing or cyanosis. Lab and radiographic data reviewed. Thank you for asking me to participate in your patient's care. Tal Truong MD 08/24/2021 ADMIT STAT 08/24/2021 1:50 AM EST EK EKG 12 LEAD STAT 08/24/2021 1:46 AM EST CBC STAT 08/24/2021 1:14 AM EST NT PROBNP STAT 08/24/2021 1:11 AM EST PHOSPHORUS LEVEL STAT 08/24/2021 12:51 AM EST MAGNESIUM LEVEL STAT 08/24/2021 12:51 AM EST TSH REFLEX TO FT4 STAT 08/24/2021 12:51 AM EST TROPONIN-T HIGH SENSITIVITY BASELINE W/ REFLEX STAT 08/24/2021 12:51 AM EST COMPREHENSIVE METABOLIC PANEL STAT 08/24/2021 12:51 AM EST SALINE LOCK IV STAT 08/24/2021 12:39 AM EST IP CONSULT TO PHARMACY Routine 08/24/2021 12:39 AM EST EK EKG 12 LEAD STAT 08/23/2021 11:46 PM EST CBC Add-On 01/12/2021 6:35 AM EDT PLATELET COUNT Timed 01/12/2021 6:35 AM EDT BASIC METABOLIC PANEL Routine 01/10/2021 6:55 AM EDT CBC WITH DIFF Routine 01/10/2021 6:55 AM EDT ADMIT Routine 01/09/2021 2:58 PM EDT PATHOLOGY TISSUE REQUEST Routine 01/09/2021 1:33 PM EDT Paresthesia of left upper and lower extremity INTRAOP AIRWAY PLACEMENT Routine 01/09/2021 8:55 AM EDT DAVINCI ROBOTIC LAPAROSCOPY LOW ANTERIOR COLON RESECTION 01/09/2021 8:09 AM EDT Paresthesia of left upper and lower extremity BB HISTORY CHECK STAT 01/09/2021 6:24 AM EDT ABORH STAT 01/09/2021 6:24 AM EDT CORONAVIRUS 2019 Routine 01/05/2021 9:48 AM EDT Pre-op testing Encounter for laboratory testing for COVID-19 virus BB HISTORY CHECK Routine 12/31/2020 2:15 PM EDT Preop testing Diverticulitis SURGERY DATE Routine 12/31/2020 2:15 PM EDT Preop testing Diverticulitis ANTIBODY SCREEN IGG Routine 12/31/2020 2:15 PM EDT Preop testing Diverticulitis ABORH Routine 12/31/2020 2:15 PM EDT Preop testing Diverticulitis PREADMISSION TYPE AND SCREEN Routine 12/31/2020 2:15 PM EDT Preop testing Diverticulitis SCANNED EKG 12/24/2020 12:35 PM EDT CORONAVIRUS 2019 Routine 12/23/2020 12:48 PM EDT ADMIT STAT 12/23/2020 2:30 AM EDT TROPONIN-T HIGH SENSITIVITY 2HR Timed 12/23/2020 2:[address] ANGIOGRAM PULMONARY W CONTRAST STAT 12/23/2020 1:36 AM EDT TROPONIN-T HIGH SENSITIVITY BASELINE W/ REFLEX STAT 12/23/2020 12:04 AM EDT BASIC METABOLIC PANEL STAT 12/23/2020 12:04 AM EDT CBC STAT 12/23/2020 12:04 AM EDT EK EKG 12 LEAD STAT 12/22/2020 9:53 PM EDT BASIC METABOLIC PANEL Timed 11/18/2020 7:36 AM EDT CBC WITH DIFF Timed 11/18/2020 7:36 AM EDT HEMOGLOBIN A1C Timed 11/18/2020 7:36 AM EDT LIPID SCREEN Timed 11/18/2020 7:36 AM EDT IP CONSULT TO GENERAL SURGERY Routine 11/17/2020 11:24 AM EDT Procedure Note - Jatin Conte MD - 11/17/2020 11:52 PM EDTThis note is in progress. EMERGENCY GENERAL SURGERY CONSULT CONSULTING PHYSICIAN: Jatin Conte MD ASSESSMENT AND PLAN Barb Harden is a 70 y.o. year old female who I am asked to see for CC ofabdominal pain. Dx with acute complicated diverticulitis with abscess. -Patient now with second documented episode of complicated diverticulitisand several bouts of less severe diverticulitis. She also reports that inbetween bouts of she never has complete resolution of symptoms and hasleft lower quadrant pain almost daily. This could be indicative ofchronic or smoldering diverticulitis -IR asked to evaluate imaging and found the abscess to be too small tobenefit from intervention. -I recommended that if she improves this admission with antibiotics alonethat she should consider elected sigmoid resection. I counseled her onthe pros and cons of elective resection. I explained the risks, benefitsans alternatives. She is agreeable to resection and will follow us up inoffice assuming an uneventful admission and discharge. -Continue antibiotics, given her chronic appearing symptoms I feel it maybe work continuing her on antibiotics until she undergoes resection asthis is the only time when she reports being symptom free. HISTORY OF PRESENT ILLNESS Barb Harden is a 70 y.o. year old female who presents with a complaint ofpain located in the abdomen. She reports she seems to always have leftlower quadrant pain but it had acutely worsened over the past two weeks.Outpatient CT was obtained and demonstrated acute complicateddiverticulitis with associated 2.2 cm abscess. Her last admission fordiverticulitis was in 2019 and managed with antibiotics alone. Her lastcolonoscopy was also in 2019. Denies fevers, chills, nausea and vomiting. HISTORY Past Medical History: Diagnosis Date Chest pain NUC 07/2013-METS 5.6, EF 60% Hypercholesteremia Hypertension ECHO 09/2014- EF 70-75%, MV mod mitral annular calc, trace regurg, TVtrace regurg, RVSP 39 Rheumatoid arthritis (HCC) Past Surgical History: Procedure Laterality Date CARDIAC CATHETERIZATION 10/03/2014 No evidence of atherosclerotic coronary artery disease., Normal leftventricular systolic function and pressure. Allergies Allergen Reactions Savannah-D 12 Hour [Fexofenadine-Pseudoephedrine] Augmentin [Amoxicillin-Pot Clavulanate] Cephalexin Metronidazole Other (See Comments) Did something to the nerves in my face Social History Socioeconomic History Marital status: Spouse name: Not on file Number of children: Not on file Years of education: Not on file Highest education level: Not on file Occupational History Not on file Social Needs Financial resource strain: Not on file Food insecurity Worry: Not on file Inability: Not on file Transportation needs Medical: Not on file Non-medical: Not on file Tobacco Use Smoking status: Never Smoker Smokeless tobacco: Never Used Substance and Sexual Activity Alcohol use: No Drug use: No Sexual activity: Never Lifestyle Physical activity Days per week: Not on file Minutes per session: Not on file Stress: Not on file Relationships Social connections Talks on phone: Not on file Gets together: Not on file Attends buddhist service: Not on file Active member of club or organization: Not on file Attends meetings of clubs or organizations: Not on file Relationship status: Not on file Intimate partner violence Fear of current or ex partner: Not on file Emotionally abused: Not on file Physically abused: Not on file Forced sexual activity: Not on file Other Topics Concern Not on file Social History Narrative Not on file Family History Problem Relation Age of Onset Hypertension Mother Heart Attack Mother Hypertension Father Heart Failure Father Hypertension Sister High Cholesterol Sister Cancer Sister 64 Ovarain cancer Hypertension Brother High Cholesterol Brother Heart Attack Brother 50 Heart Surgery Brother cabg Hypertension Sister Asthma Sister Hypertension Brother High Cholesterol Brother Asthma Brother REVIEW OF SYSTEMS Constitutional: Negative for fever, chills, HENT: Negative for congestion, sore throat Eyes: Negative for pain, redness Respiratory: Negative for cough, chest tightness, shortness of breath Cardiovascular: Negative for chest pain, palpitations Gastrointestinal: see HPI Genitourinary: Negative for dysuria, urgency, frequency Musculoskeletal: Negative for back pain, arthralgias Skin: Negative for rash and wound. Neurological: Negative for dizziness, weakness Hematological: Negative for bruise/bleed easily. Psychiatric/Behavioral: Negative for hallucinations, confusion PHYSICAL EXAMINATION Vitals: 11/16/20 2209 11/17/20 0228 11/17/20 0806 11/17/20 2100 BP: 149/72 136/79 132/64 131/74 BP Location: Left arm Right arm Right arm Patient Position: Sitting Semi Fowlers Semi Fowlers Semi Fowlers Pulse: 108 86 71 73 Resp: 20 18 17 18 Temp: 97.3 F (36.3 C) 98 F (36.7 C) 98.1 F (36.7 C) TempSrc: Forehead Oral Oral SpO2: 96% 94% 95% 98% Weight: 180 lb (81.6 kg) Height: 5' 1 (1.549 m) Constitutional: Oriented to person, place, time. Vital signs are above.Well-developed and well-nourished. Active and cooperative. Non-toxic. Nodistress. Head: Normocephalic and atraumatic. Ears: Right Ear: External ear normal. Left Ear: External ear normal. Nose: nares patent Mouth/Throat: Oropharynx clear and moist. No oropharyngeal exudate Eyes: Conjunctivae and EOM grossly normal. Pupils equal and round. Righteye no discharge. Left eye no discharge. No scleral icterus. Neck: Trachea normal. Neck supple. No tracheal deviation. No mass Cardiovascular: Normal rate Pulmonary/Chest: Effort normal. No accessory muscle usage or stridor. Nodistress. No chest wall tenderness. Abdominal: Soft. Obese, mild TTP LLQ, no rebound, no guarding. Musculoskeletal: Normal range of motion. No edema. No tenderness. Neurological: Alert and oriented to person, place, time. No cranial nervedeficit, normal tone. Skin: Skin warm and dry. No abrasion, no rash noted, not diaphoretic. Nocyanosis or erythema. No pallor. Nails show no clubbing. Psychiatric: Normal mood and affect. Speech normal and behavior is normal. LABS AND RADIOLOGY *I reviewed the following labs and studies. I personally viewed thepertinent images of the CT abdomen and pelvis. Agree with radiologyassessment. WBC: Lab Results Component Value Date WBC 10.4 (H) 11/17/2020 Hemoglobin/Hematocrit: Lab Results Component Value Date HGB 14.4 11/17/2020 HCT 43.0 11/17/2020 BMP: Lab Results Component Value Date NA 136 11/17/2020 K 3.3 (L) 11/17/2020 CL 96 (L) 11/17/2020 CO2 25 11/17/2020 BUN 23 11/17/2020 CREATININE 0.91 11/17/2020 CALCIUM 10.3 11/17/2020 PT/INR: No results found for: PROTIME, INR PTT: No results found for: APTT[APTT Ct Abdomen Pelvis W Contrast Result Date: 11/16/2020 CT ABDOMEN AND PELVIS WITH CONTRAST, 11/16/2020 6:59 PM CLINICAL HISTORY:K57.30-Diverticulosis of large intestine without perforation or abscesswithout [id number] K57.32-Diverticulitis of large intestinewithout perforation or abscess without [id number] COMPARISON:2019 PROCEDURE COMMENTS: Multi-detector volumetric scanning of theabdomen and pelvis with multiplanar reformatting. 100 mL Isovue 370 IVcontrast given along with radiodense GI contrast. Automated exposurecontrol for dose reduction was used. CTDIvol: 11.3 mGy. DLP: 529 mGy-cm.FINDINGS: Lung bases are clear. The liver, gallbladder, pancreas, spleenand adrenals are unremarkable. Kidneys enhance symmetrically withoutobstruction. Scattered cysts/hypodensities. Bladder is mildly distended,grossly normal. Minimal thickening and stranding adjacent to the sigmoidcolon with more focal collection measuring up to 2.2 cm. The remainingsmall and large bowel are normal in caliber without obstruction or wallthickening. Scattered colonic diverticula. No free fluid or suspiciouslymphadenopathy. Vasculature is unremarkable for age. No suspiciousosseous lesion. Minimal thickening involving the sigmoid colon with stranding. Adjacent 2cm collection possibly small abscess. Findings are nonspecific althoughmost suggestive of diverticulitis, given appearance possibly more subacutealthough correlate with history/timing. Consider follow-up in a few weeksto ensure resolution of this small collection. Jatin Conte MD 11/17/2020 IP CONSULT TO GI Routine 11/17/2020 10:05 AM EDT Procedure Note - Trish Doan APRN - 11/17/2020 10:47 AM EDTThis note is in progress. [facility] Gastroenterology Consult Note Name: Barb Harden ADDRESS: [address] [place], [place] [id number] : 1950 AGE: 70 y.o. Primary Care Physician: Brandon Lindsay MD Date of Admission: 11/16/2020 Date of Consultation: 11/17/2020 Admitting Diagnosis: Diverticulitis with abscess Chief Complaint / Reason for Consult: Diverticulitis with abscess History of Presenting Illness Barb Harden is a(n) 70 y.o. female who we are asked to see fordiverticulitis with abscess. She has PMH of HTN, HLD, RA, diverticulitis,H. Pylori gastritis in 2016 treated with Pylera. She was admitted to thespital in February [address] documented sigmoid diverticulitis withcontained perforation that was treated with IV abx then PO Cipro & flagyl.She underwent f/u Colonoscopy in May 2019 noted below that showed nomasses. Recall recommended in 10 years. Had recurrent uncomplicatedsigmoid diverticulitis on CT in February 2020 tx with Cipro & Flagyl. Atfollow up telemedicine visit her pain was improved, though she reportedfacial twitching when on the abx which resolved when they were completed. She was admitted last night for c/o lower abd pain which has been mild andintermittent for the last 2-3 wks. The pain is dull and at times feelslike a spasm in the LLQ. Had called our office CT was ordered revealedminimal sigmoid thickening and adjacent abscess. She was directed to theER. Denies any altered bowel pattern, rectal bleeding or melena. Has BM2-3 times in morning. Takes metamucil 2 packets daily. No fever orchills. She is anxious bout being away from home as her hasemphysema and is on oxygen. Past Endoscopic Evaluations EGD 11/09/[address] Mullins - normal esophagus, stomach and duodenum Path: + H. pylori Colonoscopy 05/29/[address] Mullins for diverticulitis of sigmoidcolon - normal muocsa in th e whole colon and TI - mild diverticulitis of the sigmoid colon with luminal narrowing Recall 10 years Current GI related medications: Florastor daily Phenergan prn Pepcid BID Clindamycin q 8 hrs Cipro BID Medications Prior to Admission Medication Sig Dispense Refill Last Dose allopurinoL (ZYLOPRIM) 300 mg Oral Tablet Take 300 mg by mouth daily.Taking at Unknown time aspirin 81 mg tablet Take by mouth daily. 11/16/2020 at 2100 celecoxib (CELEBREX) 200 mg capsule Take 200 mg by mouth daily.11/16/2020 at 0800 Cholecalciferol, Vitamin D3, 50 mcg (2,000 unit) Oral Capsule Take bymouth. Taking at Unknown time famotidine (PEPCID) 20 mg Oral Tablet Take 20 mg by mouth 2 times daily.Taking at Unknown time hydrALAZINE (APRESOLINE) 50 mg Oral Tablet Take 50 mg by mouth 2 timesdaily. 11/16/2020 at 2100 hydrochlorothiazide (HYDRODIURIL) 25 mg Oral Tablet Take 0.5 Tabs bymouth daily. 11/16/2020 at 2100 HYDROcodone-acetaminophen (LORTAB) 7.5-500 mg Take 1 Tab by mouth asneeded. Taking at Unknown time LORazepam (ATIVAN) 0.5 mg Oral Tablet Take 0.5-1 mg by mouth every 6hours as needed for Anxiety. Taking at Unknown time metoprolol succinate (TOPROL-XL) 25 mg Oral Tablet Sustained Release 24hr Take 0.5 Tabs by mouth daily. (Patient taking differently: Take 100 mgby mouth daily.) 30 Tab 11 11/16/2020 at 2100 Saccharomyces boulardii (FLORASTOR) 250 mg Oral Capsule Take by mouthdaily. Taking at Unknown time aliskiren (TEKTURNA) 300 mg tablet Take 300 mg by mouth daily. NotTaking at Unknown time cetirizine (ZYRTEC) 10 mg Oral Tablet Take by mouth daily. Not Takingat Unknown time conjugated estrogens (PREMARIN) Vagl Cream Apply fingertip amount toaffected area nightly for 2 weeks then use 2-3 times per week. (Patientnot taking: Reported on 03/06/2019) 42.5 g 1 Not Taking at Unknown time ergocalciferol (DRISDOL) 50,000 unit Oral Capsule Take by mouth once aweek. Not Taking at Unknown time EZETIMIBE (ZETIA ORAL) Take 10 mg by mouth daily. Not Taking atUnknown time ranitidine (ZANTAC) 150 mg Oral Tablet Take 150 mg by mouth. NotTaking at Unknown time Allergies Allergen Reactions Savannah-D 12 Hour [Fexofenadine-Pseudoephedrine] Augmentin [Amoxicillin-Pot Clavulanate] Cephalexin Metronidazole Other (See Comments) Did something to the nerves in my face Review of Systems: The following systems were reviewed and revealed the following in additionto any already discussed in the HPI: Constitutional: No acute distress, no wt loss, no fever/chills Eyes: No visual changes, no icterus HENT: no nasal drainage, no oral ulcers, Respiratory: no soa, no cough, no wheeze Cardiovascular: No chest pain, no wilson, no complaints Gastrointestinal: see hpi Genitourinary: no dysuria, no hematuria Musculoskeletal: no complaints Integumentary: No rash, no jaundice Hematology / Lymphatics: No enlarged lymph nodes Neuro / Psych: Alert, no confusion, no focal neuro deficits orcomplaints Social History: Barb's social history reviewed: 1. ETOH: none 2. Tobacco: none 3. Drugs: none Family History Problem Relation Age of Onset Hypertension Mother Heart Attack Mother Hypertension Father Heart Failure Father Hypertension Sister High Cholesterol Sister Cancer Sister 64 Ovarain cancer Hypertension Brother High Cholesterol Brother Heart Attack Brother 50 Heart Surgery Brother cabg Hypertension Sister Asthma Sister Hypertension Brother High Cholesterol Brother Asthma Brother Physical Examination Wt Readings from Last 1 Encounters: 11/16/20 180 lb (81.6 kg) Temp Readings from Last 3 Encounters: 11/17/20 98.1 F (36.7 C) (Oral) 03/08/19 98.1 F (36.7 C) (Oral) 03/06/19 98.2 F (36.8 C) (Oral) BP Readings from Last 3 Encounters: 11/17/20 132/64 03/08/19 121/79 03/06/19 128/72 Pulse Readings from Last 3 Encounters: 11/17/20 71 03/08/19 90 03/06/19 88 General: Alert and oriented x 3, no acute distress Skin: Warm, no jaundice, no rashes Head: Normocephalic, atraumatic, no abnormalities Eyes: No icterus ENT: Nasal mucosa moist/pink, oral mucosa moist/pink Neck: Supple without mass, no jvd Lungs: Clear to auscultation bilaterally, no wheezes or rhonchi Cardiac: Regular rate and rhythm, no murmurs, rubs, clicks, or gallops Abdomen: Rounded, soft, nontender, nondistended, normoactive bowelsounds, no rebound/guarding, no fluid wave or ascites, no hepatomegaly, nomasses Musculoskeletal/Ext: Symmetrical muscle tone and strength Neurological: No focal neurological deficits. Laboratory: CBC: Lab Results Component Value Date WBC 10.4 (H) 11/17/2020 RBC 4.80 11/17/2020 HGB 14.4 11/17/2020 HCT 43.0 11/17/2020 MCV 89.6 11/17/2020 MCHC 33.5 11/17/2020 RDW 13.6 11/17/2020 PLT 352 11/17/2020 MPV 10.0 11/17/2020 BMP: Lab Results Component Value Date NA 136 11/17/2020 K 3.3 (L) 11/17/2020 CL 96 (L) 11/17/2020 CO2 25 11/17/2020 BUN 23 11/17/2020 CREATININE 0.91 11/17/2020 CALCIUM 10.3 11/17/2020 GFRAFRAM 73 11/17/2020 GFRNONAFRAM 64 11/17/2020 GLU 116 (H) 11/17/2020 Lab Results Component Value Date ALKPHOS 109 11/17/2020 ALT 26 11/17/2020 AST 24 11/17/2020 PROT 7.7 11/17/2020 LABBILI 1.2 11/17/2020 No results found for: AMYLASE, LIPASE Coagulation: No results found for: INR, APTT, HEPARINLEVEL Cardiac markers: No results found for: CKMB, TROPT, MYOGLOBIN Thyroid Study: No results found for: TSH, C9BSDPN, T3FREE Imaging: Ct Abdomen Pelvis W Contrast Result Date: 11/16/2020 CT ABDOMEN AND PELVIS WITH CONTRAST, 11/16/2020 6:59 PM CLINICAL HISTORY:K57.30-Diverticulosis of large intestine without perforation or abscesswithout [id number]-CM K57.32-Diverticulitis of large intestinewithout perforation or abscess without [id number]-33-CM COMPARISON:2020 PROCEDURE COMMENTS: Multi-detector volumetric scanning of theabdomen and pelvis with multiplanar reformatting. 100 mL Isovue 370 IVcontrast given along with radiodense GI contrast. Automated exposurecontrol for dose reduction was used. CTDIvol: 11.3 mGy. DLP: 529 mGy-cm.FINDINGS: Lung bases are clear. The liver, gallbladder, pancreas, spleenand adrenals are unremarkable. Kidneys enhance symmetrically withoutobstruction. Scattered cysts/hypodensities. Bladder is mildly distended,grossly normal. Minimal thickening and stranding adjacent to the sigmoidcolon with more focal collection measuring up to 2.2 cm. The remainingsmall and large bowel are normal in caliber without obstruction or wallthickening. Scattered colonic diverticula. No free fluid or suspiciouslymphadenopathy. Vasculature is unremarkable for age. No suspiciousosseous lesion. Minimal thickening involving the sigmoid colon with stranding. Adjacent 2cm collection possibly small abscess. Findings are nonspecific althoughmost suggestive of diverticulitis, given appearance possibly more subacutealthough correlate with history/timing. Consider follow-up in a few weeksto ensure resolution of this small collection. Assessment/Plan: 1. Sigmoid diverticulitis with abscess - abscess too small for aspiration or drain placement per IR - she had prior issues with facial twitching when on Cipro & flagyl in thepast that resolved after completed; Allergic to Augmentin - on IV Cipro & Clindamycin -- tolerating so far without issues - exam reassuring - will consult surgery - last colonoscopy in [address] Ralph will see patient later today with further recommendations. Thank you for allowing us to participate in the care of this patient.Please feel free to call with any questions. Trish Jerez Franki, VETERINARY X RAY OPERATOR 11/17/2020 IP CONSULT TO INTERVENTIONAL RADIOLOGY Routine 11/17/2020 1:44 AM EDT Procedure Note - Veronica Mccoy PA-C - 11/17/2020 8:34 AM EDTThis note is in progress. Images from the original note were not included. INTERVENTIONAL RADIOLOGY CONSULT Date: 11/17/2020 Time: 8:35 AM Name:Barb Harden :1950 Age:70 y.o. M/F: female Attending Provider: Pérez Hackett Jr., * Primary Care Physician: Brandon Lindsay MD CC: abdominal pain, intra abdominal abscess IR aware of consultation on behalf of patient with what appears to bediveticulitis with intra abdominal abscess per CT documentation. Patientwith 20-3 weeks on LLQ abdominal pain HO containedperforation/diverticulitis February 2019. Underwent CT imaging per order from Dr. Mullins with findings of minimalthickening sigmoid colon with stranding and adjacent 2 cm collectionpossibly small abscess. WBCS 10.4. Plts: 352 Cr 0.91 FMH: Family History Problem Relation Age of Onset Hypertension Mother Heart Attack Mother Hypertension Father Heart Failure Father Hypertension Sister High Cholesterol Sister Cancer Sister 64 Ovarain cancer Hypertension Brother High Cholesterol Brother Heart Attack Brother 50 Heart Surgery Brother cabg Hypertension Sister Asthma Sister Hypertension Brother High Cholesterol Brother Asthma Brother Social HX: TOB: Social History Tobacco Use Smoking Status Never Smoker Smokeless Tobacco Never Used ETOH: Social History Substance and Sexual Activity Alcohol Use No PMH: Past Medical History: Diagnosis Date Chest pain NUC 07/2013-METS 5.6, EF 60% Hypercholesteremia Hypertension ECHO 09/2014- EF 70-75%, MV mod mitral annular calc, trace regurg, TVtrace regurg, RVSP 39 Rheumatoid arthritis (HCC) PSxHx: Past Surgical History: Procedure Laterality Date CARDIAC CATHETERIZATION 10/03/2014 No evidence of atherosclerotic coronary artery disease., Normal leftventricular systolic function and pressure. Allergies: Allergies as of 11/16/2020 - Verified 11/16/2020 Allergen Reaction Noted Savannah-d 12 hour [fexofenadine-pseudoephedrine] 04/08/2011 Augmentin [amoxicillin-pot clavulanate] 04/08/2011 Cephalexin 04/08/2011 Metronidazole Other (See Comments) 11/16/2020 Meds: Current Facility-Administered Medications: 0.9 % NaCl with KCl 20 mEq infusion, , Intravenous, Continuous, Gloria Rosas DO, Last Rate: 100 mL/hr at 11/17/20227, New Bag at ondansetron (ZOFRAN) tablet 4 mg, 4 mg, Oral, Q6H PRN ORondansetron (ZOFRAN) injection 4 mg, 4 mg, Intravenous, Q6H PRN, Gloria Rosas DO sodium chloride 0.9% IV line flush 50 mL, 50 mL, Intravenous, PRN,Gloria Rosas DO sodium chloride 0.9% syringe 5-10 mL, 5-10 mL, Intravenous, PRN,Gloria Rosas DO Vitals: 11/17/20227 BP: 136/79 Pulse: 86 Resp: 18 Temp: 98 F (36.7 C) SpO2: 94% Labs: Lab Results Component Value Date CREATININE 0.91 11/17/2020 BUN 23 11/17/2020 NA 136 11/17/2020 K 3.3 (L) 11/17/2020 CL 96 (L) 11/17/2020 CO2 25 11/17/2020 Lab Results Component Value Date WBC 10.4 (H) 11/17/2020 HGB 14.4 11/17/2020 HCT 43.0 11/17/2020 MCV 89.6 11/17/2020 PLT 352 11/17/2020 Imaging: CT 11/16/2020: Minimal thickening involving the sigmoid colon with stranding. Adjacent 2cm collection possibly small abscess. Findings are nonspecific althoughmost suggestive of diverticulitis, given appearance possibly more subacutealthough correlate with history/timing. Consider follow-up in a few weeks toensure resolution of this small collection. Assessment/Plan: 1. Abdominal pain- suspected diverticulitis with possible small intraabdominal abscess---> Case and imaging reviewed by Dr. Richmond Villalobos.Unfortunately collection size 2.2 too small for IR to access foraspiration or drain placement. Plan should be deferred to surgery, primary and or GI ( if consulted). Nothing more per IR team. Will sign off but please call if questions ariseor additional services requested. Happy to help! Signature: Veronica Mccoy PA-C ADMIT STAT 11/17/2020 1:03 AM EDT LACTIC ACID STAT 11/17/2020 12:27 AM EDT COMPREHENSIVE METABOLIC PANEL STAT 11/17/2020 12:19 AM EDT CBC WITH DIFF STAT 11/17/2020 12:[address] ABDOMEN PELVIS W CONTRAST STAT 11/16/2020 6:59 PM EDT Diverticulosis of large intestine without diverticulitis Diverticulitis of large intestine, unspecified bleeding status, unspecified complication status CREATININE ISTAT Routine 11/16/2020 6:51 PM EDT MM MAMMO DIGITAL KARELY SCREEN BILAT Routine 06/17/2020 10:44 AM EDT Encounter for screening mammogram for malignant neoplasm of breast CT ABDOMEN PELVIS W CONTRAST STAT 03/06/2020 4:36 PM EDT Abdominal pain, left lower quadrant Diverticulosis of large intestine without diverticulitis CREATININE ISTAT Routine 03/06/2020 4:[address] ABDOMEN PELVIS W CONTRAST Routine 05/27/2019 5:16 PM EDT Diverticula of colon CREATININE ISTAT Routine 05/27/2019 5:[address] ABDOMEN PELVIS WITH ORAL WO IV CONTRAST Routine 03/22/2019 11:45 AM EDT Diverticular disease of intestine with perforation and abscess CREATININE ISTAT Routine 03/22/2019 11:34 AM EDT IP CONSULT TO GENERAL SURGERY Routine 03/06/2019 9:03 PM EDT Procedure Note - Jevon Prado MD - 03/07/2019 6:20 PM EDTThis note is in progress. Surgery Consult Chief Complaint Patient presents with Abnormal Radiology pt sent from urgent care for positive CT scan. Pt noted to haveinflammatory changes and possible perforation. Denies N, V, +chills, +abdpain HPI: This is a 68 y.o. year old female patient who we are asked to see by Cesar for abdominal pain. Patient has one day history lower abdominalpain, described as tight, primarily left lower, non-radiating. Noassociated nausea, eating well. No change in BM but notes some red bloodon tissue with BM, typical of previous hemorrhoid bleeding, now stopped.Reports normal colonoscopy three years ago. No history similar problems.CT shows sigmoid inflammation, possible small extraluminal air. Past Medical History: Diagnosis Date Chest pain NUC 07/2013-METS 5.6, EF 60% Hypercholesteremia Hypertension ECHO 09/2014- EF 70-75%, MV mod mitral annular calc, trace regurg, TVtrace regurg, RVSP 39 Rheumatoid arthritis (HCC) Past Surgical History: Procedure Laterality Date CARDIAC CATHETERIZATION 10/03/2014 No evidence of atherosclerotic coronary artery disease., Normal leftventricular systolic function and pressure. No current facility-administered medications on file prior to encounter. Current Outpatient Medications on File Prior to Encounter Medication Sig Dispense Refill aliskiren (TEKTURNA) 300 mg tablet Take 300 mg by mouth daily. aspirin 81 mg tablet Take by mouth daily. celecoxib (CELEBREX) 200 mg capsule Take 200 mg by mouth daily. ergocalciferol (DRISDOL) 50,000 unit Oral Capsule Take by mouth once aweek. hydrALAZINE (APRESOLINE) 50 mg Oral Tablet Take 50 mg by mouth 2 timesdaily. hydrochlorothiazide (HYDRODIURIL) 25 mg Oral Tablet Take 0.5 Tabs bymouth daily. HYDROcodone-acetaminophen (LORTAB) 7.5-500 mg Take 1 Tab by mouth asneeded. metoprolol succinate (TOPROL-XL) 25 mg Oral Tablet Sustained Release 24hr Take 0.5 Tabs by mouth daily. (Patient taking differently: Take 100 mgby mouth daily.) 30 Tab 11 olmesartan (BENICAR) 20 mg Oral Tablet Take by mouth daily. ranitidine (ZANTAC) 150 mg Oral Tablet Take 150 mg by mouth. cetirizine (ZYRTEC) 10 mg Oral Tablet Take by mouth daily. conjugated estrogens (PREMARIN) Vagl Cream Apply fingertip amount toaffected area nightly for 2 weeks then use 2-3 times per week. (Patientnot taking: Reported on 03/06/2019) 42.5 g 1 EZETIMIBE (ZETIA ORAL) Take 10 mg by mouth daily. ramipril (ALTACE) 10 mg Oral Capsule Take 10 mg by mouth daily. Allergies Allergen Reactions Savannah-D 12 Hour [Fexofenadine-Pseudoephedrine] Augmentin [Amoxicillin-Pot Clavulanate] Cephalexin Social History Socioeconomic History Marital status: Spouse name: Not on file Number of children: Not on file Years of education: Not on file Highest education level: Not on file Occupational History Not on file Social Needs Financial resource strain: Not on file Food insecurity: Worry: Not on file Inability: Not on file Transportation needs: Medical: Not on file Non-medical: Not on file Tobacco Use Smoking status: Never Smoker Smokeless tobacco: Never Used Substance and Sexual Activity Alcohol use: No Drug use: No Sexual activity: Never Lifestyle Physical activity: Days per week: Not on file Minutes per session: Not on file Stress: Not on file Relationships Social connections: Talks on phone: Not on file Gets together: Not on file Attends buddhist service: Not on file Active member of club or organization: Not on file Attends meetings of clubs or organizations: Not on file Relationship status: Not on file Intimate partner violence: Fear of current or ex partner: Not on file Emotionally abused: Not on file Physically abused: Not on file Forced sexual activity: Not on file Other Topics Concern Not on file Social History Narrative Not on file Family History Problem Relation Age of Onset Hypertension Mother Heart Attack Mother Hypertension Father Heart Failure Father Hypertension Sister High Cholesterol Sister Cancer Sister 64 Ovarain cancer Hypertension Brother High Cholesterol Brother Heart Attack Brother 50 Heart Surgery Brother cabg Hypertension Sister Asthma Sister Hypertension Brother High Cholesterol Brother Asthma Brother No other family history pertinent to the presenting problem Review of Systems As above and all other systems are negative. Physical Exam Vitals: 03/07/19 1400 BP: 130/63 Pulse: 86 Resp: 16 Temp: 97.8 F (36.6 C) SpO2: 98% Body mass index is 32.28 kg/m . General: No acute distress. Alert Neuro: alert. oriented Eyes: pupils equal. anicteric Mouth: Oral mucosa moist. No perioral lesions Chest: symmetric excursion with respiration. Respirations unlabored andregular. CTA B Heart: Regular rate and rhythm Abdomen: soft, non-distended, mildly tender LLQ, no mass or guarding Skin: warm, well perfused Back: no tenderness, no CVA tenderness Extremities: good range of motion. No deformities Labs WBC/Hgb/Hct/Plts: 10.8/12.3/37.7/503 (03/06 114) Na/K/Cl/CO2: 142/4.4/101/25 (03/06 114)BUN/Cr/glu/ALT/AST/amyl/lip: --/0.9/--/--/--/--/-- (03/06 144) Pertinent Labs reviewed and Imaging visualized. Assessment & Plan: Active Hospital Problems Diagnosis *Perforation of sigmoid colon due to diverticulitis Unspecified essential hypertension Diverticulitis, symptoms improving and tolerating liquids Will try low residue diet Continue IV antibiotic CT ABDOMEN PELVIS W CONTRAST STAT 03/06/2019 2:51 PM EDT LLQ pain CREATININE ISTAT Routine 03/06/2019 2:46 PM EDT COMPREHENSIVE METABOLIC PANEL STAT 03/06/2019 11:40 AM EDT LLQ abdominal pain CBC WITH DIFF STAT 03/06/2019 11:40 AM EDT LLQ abdominal pain POCT URINALYSIS DIPSTICK Routine 03/06/2019 10:57 AM EDT Possible urinary tract infection URINE CULTURE (NO STAIN) Routine 03/06/2019 10:57 AM EDT Possible urinary tract infection MM MAMMO DIGITAL SCREENING W CAD BILAT Routine 02/11/2019 3:05 PM EDT Encounter for screening mammogram for malignant neoplasm of breast MM MAMMO DIGITAL SCREENING W CAD BILAT Routine 02/02/2018 10:39 AM EDT Encounter for screening mammogram for malignant neoplasm of breast URINE CULTURE (NO STAIN) Routine 09/18/2017 9:05 AM EST Frequency of urination POCT URINALYSIS DIPSTICK Routine 09/18/2017 8:56 AM EST Frequency of urination POCT EKG Routine 08/04/2017 5:37 PM EST Elevated blood pressure reading MM MAMMO DIGITAL SCREENING W CAD BILAT Routine 09/16/2016 11:37 AM EST Visit for screening mammogram H. PYLORI BREATH TEST - REF LAB Routine 01/28/2016 9:50 AM EDT Bacterial infection due to Helicobacter pylori US RIGHT UPPER QUADRANT Routine 10/06/2015 9:46 AM EST RUQ pain CT ABDOMEN PELVIS WO CONTRAST STAT 10/02/2015 2:41 PM EST Hematuria syndrome Abdominal pain, right upper quadrant MM MAMMO DIGITAL SCREENING W CAD BILAT Routine 07/02/2015 12:34 PM EST Screening XR ANKLE RIGHT AP LATERAL AND OBLIQUE WILMER 02/07/2015 11:04 AM EDT SCANNED EKG 10/05/2014 8:18 PM EST RECORDS SECTION SUPERVISOR PROCEDURE LOG Routine 10/03/2014 1:50 PM EST CARDIAC PROCEDURE-RECORDS SECTION SUPERVISOR ONLY 10/03/2014 1:34 PM EST angina SCANNED RHYTHM STRIPS 10/03/2014 10:[address] ANGIOGRAM CORONARY W CONTRAST STAT 10/03/2014 10:35 AM EST EK EKG 12 LEAD Routine 10/03/2014 6:48 AM EST TSH REFLEX TO FT4 Routine 10/03/2014 5:24 AM EST SCANNED RHYTHM STRIPS 10/02/2014 8:36 PM EST D-DIMER Routine 10/02/2014 5:08 PM EST MAGNESIUM LEVEL Routine 10/02/2014 5:08 PM EST EC ECHOCARDIOGRAM COMPLETE W DOPPLER AND COLOR FLOW MAPPING Routine 10/02/2014 4:30 PM EST TROPONIN-T Timed 10/02/2014 2:20 PM EST TROPONIN-T STAT 10/02/2014 9:30 AM EST EK EKG 12 LEAD STAT 10/02/2014 9:00 AM EST XR CHEST AP PORTABLE WILMER 10/02/2014 7:29 AM EST DIFFERENTIAL STAT 10/02/2014 7:11 AM EST TROPONIN-T STAT 10/02/2014 7:11 AM EST BASIC METABOLIC PANEL STAT 10/02/2014 7:11 AM EST CBC WITH DIFF STAT 10/02/2014 7:11 AM EST EK EKG 12 LEAD STAT 10/02/2014 6:54 AM EST MM MAMMO DIGITAL SCREENING W CAD BILAT Routine 05/23/2014 12:58 PM EDT Other screening mammogram SCANNED RADIOLOGY REPORT 08/26/2013 11:02 AM EST NM MYOCARDIAL PERFUSION SPECT STRESS AND REST Routine 08/26/2013 10:05 AM EST Chest pain, unspecified Unspecified essential hypertension Other and unspecified hyperlipidemia ST STRESS TEST EXERCISE Routine 08/26/2013 8:51 AM EST Chest pain, unspecified Unspecified essential hypertension Other and unspecified hyperlipidemia EC ECHOCARDIOGRAM COMPLETE W DOPPLER AND COLOR FLOW MAPPING Routine 08/22/2013 1:59 PM EST Chest pain WILSON (dyspnea on exertion) HTN (hypertension) Hyperlipidemia Rheumatoid aortitis (HCC) SCANNED EKG 08/09/2013 11:34 AM EST MM MAMMO DIGITAL SCREENING W CAD BILAT Routine 01/30/2013 2:34 PM EDT Other screening mammogram WOOD TILE INSTALLATION HELPER CYTOLOGY REPORT Routine 01/30/2013 4:47 AM EDT NM MYOCARDIAL PERFUSION SPECT STRESS AND REST Routine 04/08/2011 9:59 AM EDT Atypical chest pain ST STRESS TEST EXERCISE Routine 04/08/2011 9:31 AM EDT Atypical chest pain SCANNED RADIOLOGY REPORT 04/08/2011 12:00 AM EDT WOOD TILE INSTALLATION HELPER CYTOLOGY REPORT Routine 03/30/2011 12:55 AM EDT MM MAMMO DIGITAL SCREENING W CAD BILAT Routine 03/29/2011 3:16 PM EDT Other screening mammogram PATHOLOGY TISSUE REPORT Routine 07/30/2010 10:00 AM EST SCANNED PATHOLOGY REPORT 04/07/2010 12:00 AM EDT SCANNED LABS 03/30/2010 12:00 AM EDT MM DIG SCR KIM PANEL W/CAD Routine 03/29/2010 11:50 AM EDT SEDIMENTATION RATE AUTOMATED Routine 03/29/2010 9:16 AM EDT DIFFERENTIAL Routine 03/29/2010 9:16 AM EDT CBC WITH DIFF Routine 03/29/2010 9:16 AM EDT WOOD TILE INSTALLATION HELPER CYTOLOGY REPORT Routine 03/29/2010 6:16 AM EDT SCANNED RADIOLOGY REPORT 03/29/2010 12:00 AM EDT SCANNED OR REPORT 03/17/2010 12:00 AM EDT DIFFERENTIAL Timed 10/16/2009 11:35 AM EST CBC WITH DIFF Timed 10/16/2009 11:35 AM EST PATHOLOGY TISSUE REPORT Routine 10/16/2009 11:23 AM EST PT / INR Routine 10/12/2009 8:10 AM EST PARTIAL THROMBOPLASTIN TIME Routine 10/12/2009 8:10 AM EST BLEEDING TIME Routine 10/12/2009 8:10 AM EST CBC WITH DIFF Routine 10/12/2009 8:[address] ABD/PELVIS MARKETING FINANCIAL ANALYST Routine 07/09/2009 5:10 PM EST MM DIG SCR KIM PANEL W/CAD Routine 03/27/2009 9:00 AM EDT US RIGHT UPPER QUADRANT Routine 04/02/2008 9:11 AM EDT MM DIG SCR KIM PANEL W/CAD Routine 03/26/2008 12:40 PM EDT NM NUCLEAR CARDIAC PROCEDURE MARKETING FINANCIAL ANALYST Routine 03/25/2008 10:[address] STRESS TEST REGULAR Routine 03/25/2008 9:31 AM EDT WW MAMMO SCREEN W/CAD II PANEL Routine 03/06/2007 3:[address] STRESS TEST REGULAR Routine 10/31/2006 9:07 AM EST NM NUCLEAR CARDIAC PROCEDURE MARKETING FINANCIAL ANALYST Routine 10/31/2006 7:27 AM EST EK EKG REG Routine 10/31/2006 7:17 AM EST EK EKG REG Routine 10/30/2006 9:29 AM EST XX CHEST PORTABLE Routine 10/30/2006 9:29 AM EST WW MAMMO SCREEN W/CAD II PANEL Routine 02/13/2006 9:10 AM EDT DIAG CHEST PA & LAT Routine 12/03/2005 12:00 AM EDT Results * (ABNORMAL) CELL COUNT AND DIFFERENTIAL, SYNOVIAL FLUID-[facility] (05/20/2025 2:27 PM EDT) Only the most recent of2 resultswithin the time period is included. Specimen Source NOT GIVEN [facility] Color YELLOW STRAW/YEL LOW [facility] Appearance TURBID(A) CLEAR/HAZ Y [facility] [...] Murphy MD [facility]-BODY FLUIDS AND STOOL Rae plascencia Result [facility] [address] [place] [address] * CULTURE, ANAEROBIC BACTERIA WITH GRAM STAIN-[facility] (05/20/2025 2:27 PM EDT) Bacteria Identified [facility] SEE NOTE [facility] Comment: CULTURE, ANAEROBIC BACTERIA W/GRAM STAIN Micro Number: [id number] Test Status: Final Specimen Source: Fluid (not specified) Specimen Quality: Adequate Gram Stain: No organisms seen Result: No anaerobes isolated. 05/20/2025 2:27 PM EDT 05/22/2025 1:10 PM EDT Mirlande Murphy MD [facility]-MICROBIOLOGY ORDERABLES Fi nal Result Performing Organization Address [facility] Co de Phone Number [facility] [address] [address] * CULTURE, AEROBIC BACTERIA-[facility] (05/20/2025 2:27 PM EDT) Aerobic Bacterial Culture SEE NOTE [facility] Comment: CULTURE, AEROBIC BACTERIA Micro Number: [id number] Test Status: Final Specimen Source: Fluid (not specified) Specimen Quality: Adequate Result: No Growth 05/20/2025 2:27 PM EDT 05/22/2025 1:10 PM EDT Mirlande Murphy MD [facility]-MICROBIOLOGY ORDERABLES Fi nal Result Performing Organization Address [facility] de Phone Number [facility] [address] [place] [address] * CRYSTALS, SYNOVIAL FLUID-[facility] (05/20/2025 2:27 PM EDT) Only the most recent of2 resultswithin the time period is included. Specimen Source NOT GIVEN [facility] Crystals, Synovial Fluid NONE SEEN /HPF [facility] Comment:None seen 05/20/2025 2:2 7 PM EDT 05/22/2025 1:10 PM EDT Mirlande TERRELL-BODY FLUIDS AND STOOL Rae l Result Performing Organization Address [facility] de Phone Number [facility] [address] [address] * URIC ACID-[facility] (05/20/2025 1:16 PM EDT) Only the most recent of12 resultswithin the time period is included. Uric Acid 3.5 2.5 - 7.0 mg/dL [facility] Comment: Therapeutic target for gout patients: <6.0 mg/dL 05/20/2025 1:16 PM EDT 05/20/2025 1:17 PM EDT Mirlande Murphy MD [facility]-CHEMISTRY ORDERABLES Final Result Performing Organization Address City/[facility]/ZIP Co de Phone Number [facility] [address] [place] [address] * SEDIMENTATION RATE AUTOMATED-[facility] (05/20/2025 1:16 PM EDT) Only the most recent of7 resultswithin the time period is included. [facility] Sed Rate 2 < OR = 30 [facility] 05/20/2025 1:16 PM EDT 05/20/2025 1:17 PM EDT Mirlande Murphy MD [facility]-HEMATOLOGY ORDERABLES Rae l Result Performing Organization Address [facility] Co de Phone Number [facility] [address] [place] [address] * HEPATIC FUNCTION PANEL-[facility] (05/20/2025 1:16 PM EDT) Only the most recent of8 resultswithin the time period is included. [facility] Protein, Total 6.4 6.1 - 8.1 g/dL [...] [facility]-CHEMISTRY ORDERABLES Final Result Performing Organization Address City/[facility]/ZIP Co de Phone Number [facility] [address] [place] [address] * CREATININE-[facility] (05/20/2025 1:16 PM EDT) Only the most recent of8 resultswithin the time period is included. Creatinine 0.82 0.60 - 1.00 mg/dL [facility] EGFR 75 > OR = 60 mL/min/1.73 m2 [facility] 05/20/2025 1:16 PM EDT 05/20/2025 1:17 PM EDT Mirlande Murphy MD [facility]-CHEMISTRY ORDERABLES Final Result Performing Organization Address [facility] Co de Phone Number [facility] [address] [place] [address] * C REACTIVE PROTEIN-[facility] (05/20/2025 1:16 PM EDT) Only the most recent of7 resultswithin the time period is included. CRP 6.8 <8.0 mg/L [facility] 05/20/2025 1:16 PM EDT 05/20/2025 1:17 PM EDT Mirlande Murphy MD QUEST-CHEMISTRY ORDERABLES Final Result Performing Organization Address City/[facility]/ZIP Co de Phone Number QUEST [facility] [address] [place] [address] * (ABNORMAL) CBC WITH AUTO DIFF-QUEST (05/20/2025 1:16 PM EDT) Only the most recent of11 resultswithin the time period is included. WBC 9.0 3.8 - 10.8 Thousand/u L [...] ORDERABLES Rae l Result Performing Organization Address [facility] Co de Phone Number [facility] [address] [place] [address] * (ABNORMAL) HEMOGLOBIN [id number]-BAEAO (04/21/2025 9:28 AM EDT) Only the most recent of4 resultswithin the time period is included. Hemoglobin A1C 6.0(H) <5.7 % [facility] Comment: For someone without known diabetes, a [...] QUEST-CHEMISTRY ORDERABLES Final Result Performing Organization Address [facility]/RUST de Phone Number [facility] [address] [place] [address] * MM MAMMO DIGITAL KARELY SCREEN BILAT (01/08/2025 2:39 PM EDT) Only the most recent of4 resultswithin the time period is included. Anatomical Region Laterality Modality Breast Bilateral Mammography 01/08/2025 2:39 PM EDT Impressions 01/08/2025 3:03 PM EDT Negative ([id number]) RECOMMENDATION: Routine Screening Mammogram in 1 Year Bilateral . . COMMENTS: DISCLAIMER *The patient was notified by MyChart or mail of the results for this examination. *The patient's information was entered into a reminder system with a target due date for the next breast imaging, in accordance with the [employer] and the Society of Breast Imaging recommendations. *Breast Imaging has a false negative rate of 15%. *Any patient with a palpable abnormality, unexplained by breast imaging, should be managed on a clinical basis by the attending physician. Narrative 01/08/2025 3:03 PM EDT EXAM: MM MAMMO DIGITAL KARELY SCREEN BILAT EXAM DATE: 01/08/2025 2:39 PM INDICATION: Z12.31-Encounter for screening mammogram for malignant neoplasm of bmaoqn-MLT-57-CM COMPARISON STUDIES: Compared with prior studies the most recent being 05/29/2023 MM MAMMO DIGITAL KARELY SCREEN BILAT at [facility] 12/07/2021 MM MAMMO DIGITAL KARELY SCREEN BILAT at [facility] 06/17/2020 MM MAMMO DIGITAL KARELY SCREEN BILAT at [facility] TISSUE DENSITY: There are scattered areas of fibroglandular density. FINDINGS: No mammographic evidence of malignancy. Procedure Note Natalie Gasca MD - 01/08/2025 EXAM: MM MAMMO DIGITAL KARELY SCREEN BILAT EXAM DATE: 01/08/2025 2:39 PM INDICATION: Z12.31-Encounter for screening mammogram for malignantneoplasm of rpeaxk-PAP-58-CM COMPARISON STUDIES: Compared with prior studies the most recent being 05/29/2023 MM MAMMO DIGITAL KARELY SCREEN BILAT at [facility] 12/07/2021 MM MAMMO DIGITAL KARELY SCREEN BILAT at [facility] 06/17/2020 MM MAMMO DIGITAL KARELY SCREEN BILAT at [facility] TISSUE DENSITY: There are scattered areas of fibroglandular density. FINDINGS: No mammographic evidence of malignancy. IMPRESSION: Negative ([id number]-6) RECOMMENDATION: Routine Screening Mammogram in 1 Year Bilateral . . COMMENTS: DISCLAIMER *The patient was notified by MyChart or mail of the results for this examination. *The patient's information was entered into a reminder system with atarget due date for the next breast imaging, in accordance with the [employer] and the Society of Breast Imaging recommendations. *Breast Imaging has a false negative rate of 15%. *Any patient with a palpable abnormality, unexplained by breast imaging,should be managed on a clinical basis by the attending physician. Brandon Lindsay MD IM MAMMOGRAPHY ORDERABLES Final Result * CT ABDOMEN PELVIS W CONTRAST (10/26/2024 10:15 AM EST) Only the most recent of6 resultswithin the time period is included. Anatomical Region Laterality Modality Abdomen, Chest, Pelvis, Hip Comp uted Tomography 10/26/2024 10:1 5 AM EST Impressions 10/26/2024 10:29 AM EST No acute abnormality of the abdomen or pelvis. - Note: Radiology results need to be interpreted within a comprehensive clinical context. If you have questions about the radiology report, please contact the office of the ordering clinician. Narrative 10/26/2024 10:[address] ABDOMEN AND PELVIS WITH CONTRAST, 10/26/2024 10:15 AM CLINICAL HISTORY: R10.32-Left lower quadrant niha-MXS-46-CM. COMPARISON: 11/17/2021 PROCEDURE COMMENTS: Multi-detector CT of the abdomen and pelvis with multiplanar reformatting. Isovue 370 IV contrast given along with radiodense GI contrast as recorded in EPIC. Dose 1 : CT DLP Total : 389.45 mGycm DLP Spiral Max : 384.96 mGycm Maximum CTDI Vol : 7.95 mGy SSDE : 5.883 mGy SSDE Diameter : 43.8 cm SSDE Source : Lat FINDINGS: Visualized lung bases are unremarkable. Limited views of the heart and esophagus are within normal limits. Liver, gallbladder, spleen, adrenal glands, pancreas, and kidneys are all within normal limits. No hydronephrosis. Urinary bladder is unremarkable. Uterus is present. Stomach is unremarkable. Bowel is normal in course and caliber. No evidence of acute appendicitis. No free intraperitoneal air, focal fluid collection, or ascites. Aorta and IVC are normal in caliber. No abdominopelvic lymphadenopathy. No acute osseous abnormality. Procedure Note hAsan Lewis MD - 10/26/2024 CT ABDOMEN AND PELVIS WITH CONTRAST, 10/26/2024 10:15 AM CLINICAL HISTORY: R10.32-Left lower quadrant qmop-FMF-41-CM. COMPARISON: 11/17/2021 PROCEDURE COMMENTS: Multi-detector CT of the abdomen and pelvis with multiplanar reformatting. Isovue 370 IV contrast given along withradiodense GI contrast as recorded in EPIC. Dose 1 : CT DLP Total : 389.45 mGycm DLP Spiral Max : 384.96 mGycm Maximum CTDI Vol : 7.95 mGy SSDE : 5.883 mGy SSDE Diameter : 43.8 cm SSDE Source : Lat FINDINGS: Visualized lung bases are unremarkable. Limited views of the heart andesophagus are within normal limits. Liver, gallbladder, spleen, adrenal glands, pancreas, and kidneys are allwithin normal limits. No hydronephrosis. Urinary bladder is unremarkable. Uterus is present. Stomach is unremarkable. Bowel is normal in course and caliber. Noevidence of acute appendicitis. No free intraperitoneal air, focal fluid collection, or ascites. Aorta andIVC are normal in caliber. No abdominopelvic lymphadenopathy. No acute osseous abnormality. IMPRESSION: No acute abnormality of the abdomen or pelvis. - Note: Radiology results need to be interpreted within a comprehensiveclinical context. If you have questions about the radiology report, please contactthe office of the ordering clinician. Patrick Proctor V[employer]ERINARY X RAY OPERATOR IMG CT ORDERABLES Final R esult * CT HEAD WO CONTRAST (02/01/2023 7:23 AM EDT) Anatomical Region Laterality Modality Head Computed Tomogra phy 02/01/2023 7:23 AM EDT Impressions 02/01/2023 8:19 AM EDT No acute intracranial abnormality. - Note: Radiology results need to be interpreted within a comprehensive clinical context. If you have questions about the radiology report, please contact the office of the ordering clinician. Narrative 02/01/2023 8:[address] HEAD WO CONTRAST 02/01/2023 7:23 AM CLINICAL HISTORY: R53.4-Ronoipzq-RBB-10-CM. COMPARISON: CT angiography head with IV contrast 02/01/2023 PROCEDURE COMMENTS: Routine noncontrast head CT with multiplanar reconstructions. Dose 1 : CT DLP Total : 1383.82 mGycm DLP Spiral Max : 808.37 mGycm Maximum CTDI Vol : 48.15 mGy FINDINGS: HEMORRHAGE: No evidence of acute intracranial hemorrhage. MASS EFFECT / MASS LESION: No mass effect. There is no evidence of an intracranial mass or extraaxial fluid collection. ACUTE ISCHEMIC CHANGE: None. CHRONIC ISCHEMIC CHANGE: None. PARENCHYMA: The brain parenchyma is otherwise within normal limits for age. VENTRICLES: Normal caliber and morphology. OTHER: The visualized calvarium, skull base, orbits and extracranial soft tissues are normal. The visualized paranasal sinuses and mastoid air cells are clear. Procedure Note Viraj Mina MD - 02/01/2023 CT HEAD WO CONTRAST 02/01/2023 7:23 AM CLINICAL HISTORY: R53.7-Dabxgsyi-OVY-10-CM. COMPARISON: CT angiography head with IV contrast 02/01/2023 PROCEDURE COMMENTS: Routine noncontrast head CT with multiplanar reconstructions. Dose 1 : CT DLP Total : 1383.82 mGycm DLP Spiral Max : 808.37 mGycm Maximum CTDI Vol : 48.15 mGy FINDINGS: HEMORRHAGE: No evidence of acute intracranial hemorrhage. MASS EFFECT / MASS LESION: No mass effect. There is no evidence of an intracranial mass or extraaxial fluid collection. ACUTE ISCHEMIC CHANGE: None. CHRONIC ISCHEMIC CHANGE: None. PARENCHYMA: The brain parenchyma is otherwise within normal limits forage. VENTRICLES: Normal caliber and morphology. OTHER: The visualized calvarium, skull base, orbits and extracranialsoft tissues are normal. The visualized paranasal sinuses and mastoid air cellsare clear. IMPRESSION: No acute intracranial abnormality. - Note: Radiology results need to be interpreted within a comprehensiveclinical context. If you have questions about the radiology report, please contactthe office of the ordering clinician. Brandon Lindsay MD [facility] CT ORDERABLES Final Result * CT ANGIOGRAM HEAD W CONTRAST (02/01/2023 7:20 AM EDT) Anatomical Region Laterality Modality Head Computed Tomogra phy 02/01/2023 7:20 AM EDT Impressions 02/01/2023 7:56 AM EDT 1. No large vessel occlusion, aneurysm, or flow-limiting stenosis of central intracranial circulation. - Note: Radiology results need to be interpreted within a comprehensive clinical context. If you have questions about the radiology report, please contact the office of the ordering clinician. Narrative 02/01/2023 7:[address] ANGIOGRAM HEAD WITH CONTRAST, 02/01/2023 7:20 AM CLINICAL HISTORY: 72 years-old; left-sided weakness. Possible TIA. R53.6-Hxvzmevk-WSF-10-CM. COMPARISON: Head CT without contrast at same time. PROCEDURE COMMENTS: 75 ml Isovue 370 IV contrast given as recorded in EPIC. Multidetector CT of the intracranial circulation obtained with multiplanar reconstructions, including 3D MIP reconstructions. Also reviewed on [employer] workstation. Dose 1 : CT DLP Total : 1383.82 mGycm DLP Spiral Max : 808.37 mGycm Maximum CTDI Vol : 48.15 mGy FINDINGS: Vertebrobasilar: Distal vertebral arteries are patent and codominant. Both join basilar artery. 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 No posterior communicating arteries. Bilateral cavernous ICA segments are patent and normal. Middle and anterior cerebral arteries are normal. A small anterior communicating artery exists. No aneurysm seen. Other: No intracranial mass effect or other visualized abnormal enhancement. Procedure Note Megha Haas MD - 02/01/2023 CT ANGIOGRAM HEAD WITH CONTRAST, 02/01/2023 7:20 AM CLINICAL HISTORY: 72 years-old; left-sided weakness. Possible TIA. R53.7-Mlngukul-IFZ-10-CM. COMPARISON: Head CT without contrast at same time. PROCEDURE COMMENTS: 75 ml Isovue 370 IV contrast given as recorded inEPIC. Multidetector CT of the intracranial circulation obtained withmultiplanar reconstructions, including 3D MIP reconstructions. Also reviewed onSBAASBOX workstation. Dose 1 : CT DLP Total : 1383.82 mGycm DLP Spiral Max : 808.37 mGycm Maximum CTDI Vol : 48.15 mGy FINDINGS: Vertebrobasilar: Distal vertebral arteries are patent and codominant. Bothjoin basilar artery. 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 No posterior communicatingarteries. Bilateral cavernous ICA segments are patent and normal. Middle andanterior cerebral arteries are normal. A small anterior communicating arteryexists. No aneurysm seen. Other: No intracranial mass effect or other visualized abnormalenhancement. IMPRESSION: 1. No large vessel occlusion, aneurysm, or flow-limiting stenosis ofcentral intracranial circulation. - Note: Radiology results need to be interpreted within a comprehensiveclinical context. If you have questions about the radiology report, please contactthe office of the ordering clinician. Brandon Lindsay MD IM CT ORDERABLES Final Result * (ABNORMAL) COMPREHENSIVE METABOLIC PANEL-QUEST (01/26/2023 10:34 AM EDT) Only the most recent of3 resultswithin the time period is included. Glucose 119(H) 65 - 99 mg/dL [facility] Comment: Fasting reference interval For someone without known diabetes, a glucose value between 100 and 125 mg/dL is consistent with prediabetes and should be confirmed with a follow-up test. BUN 27(H) 7 - 25 mg/dL [facility] Creatinine 0.93 0.60 - 1.00 mg/dL [facility] EGFR 65 > OR = 60 mL/min/1.7 3m2 [facility] Comment: The eGFR is based on the CKD-EPI 2020 equation. To calculate the new eGFR from a previous Creatinine or Cystatin C result, go to https://www.kidney.org/professionals/ kdoqi/gfr%5Fcalculator BUN/Creatinine Ratio 29(H) 6 - 22 (calc) [facility] Sodium 138 135 - 146 mmol/L [facility] Potassium 3.9 3.5 - 5.3 mmol/L [facility] Chloride 102 98 - 110 mmol/L [facility] CO2 26 20 - 32 mmol/L [facility] Calcium 10.3 8.6 - 10.4 mg/dL [facility] Protein, Total 7.2 6.1 - 8.1 g/dL [facility] Albumin 4.7 3.6 - 5.1 g/dL [facility] Globulin 2.5 1.9 - 3.7 g/dL (calc) [facility] Albumin/Globuli n Ratio 1.9 1.0 - 2.5 (calc) [facility] Total Bilirubin 1.1 0.2 - 1.2 mg/dL [facility] Alk Phos 75 37 - 153 U/L [facility] AST 15 10 - 35 U/L [facility] ALT 14 6 - 29 U/L [facility] 01/26/2023 10:3 4 AM EDT 01/26/2023 10:35 AM EDT us Mirlande Murphy MD QUEST-CHEMISTRY ORDERABLES Final Result [facility]ST [facility] [address] [place] [address] * MRI KNEE RIGHT WO CONTRAST (12/13/2022 11:11 AM EDT) Anatomical Region Laterality Modality Knee, Patella Magnetic Resonan ce 12/13/2022 11:1 1 AM EDT Impressions 12/13/2022 11:27 AM EDT 1. Moderate tricompartmental osteoarthrosis . Attenuation of the medial and lateral menisci in her rim margins compatible prior partial meniscectomies. Medial meniscal extrusion present with inner rim tearing suggested by non-arthrographic assessment. 2. Intact cruciate/collateral ligaments and extensor mechanism. 3. Moderate complex effusion/findings of synovitis concordant with the patient's history of inflammatory arthritis. Recent arthrocentesis/fluid analysis performed. - Note: Radiology results need to be interpreted within a comprehensive clinical context. If you have questions about the radiology report, please contact the office of the ordering clinician. Narrative 12/13/2022 11:27 AM EDT MRI KNEE RIGHT WO CONTRAST 12/13/2022 11:11 AM CLINICAL HISTORY: M25.561-Pain in right dyhi-UKB-49-CM M25.461-Effusion, right owyi-GQE-80-CM COMPARISON: 09/28/2022. TECHNIQUE: Multiplanar, multisequence MR images of the left knee were obtained without the use of contrast. FINDINGS: MENISCI: Medial Meniscus: Broadly attenuated and extruded medial meniscal posterior horn and body segments. Posterior horn/body segment inner rim fraying/tearing suggested. No parameniscal cyst. Intact meniscal roots. Lateral Meniscus: Attenuated lateral meniscal body/posterior horn inner rim margins. No displaced tear or parameniscal cyst. Intact meniscal roots. LIGAMENTS/STABILIZERS: The ACL and PCL are intact. The MCL is intact. Mild reactive MCL periligamentous/posteromedial joint line edema. The iliotibial band, LCL, and biceps femoris/popliteus tendons are intact. OSSEOUS & ARTICULAR STRUCTURES: Bones: Degenerative subchondral marrow edema/degenerative cystic changes noted in the marginal medial plateau plateau, weightbearing medial femoral condyle, and central lateral tibial plateau. No macro fracture or discrete erosive changes. Alignment maintained. No worrisome marrow replacing process. Femorotibial Compartments: Medial femorotibial chondral attenuation/joint space narrowing present. High-grade chondral wear regions noted regional to the aforementioned subchondral bone signal alteration regions. Central lateral tibial plateau chondral attenuation/spurring present. Patellofemoral Compartment: Generalized patellar chondral thinning noted with chondral wear overlying the median ridge with degenerative subcortical bone change/spurring. Medial trochlear chondral degeneration/subchondral bone plate spurring present. EXTENSOR MECHANISM/RETINACULA: The quadriceps and patellar tendons are intact. The retinacula are intact. FLUID/OTHER: Moderate complex effusion with findings of synovitis. No Teran's cyst distention. Scarring in Hoffa's fat pad concordant with prior arthroscopy. Procedure Note Abdi Baeza MD - 12/13/2022 MRI KNEE RIGHT WO CONTRAST 12/13/2022 11:11 AM CLINICAL HISTORY: M25.561-Pain in right hayz-BWR-64-CM M25.461-Effusion, right fdop-GZZ-41-CM COMPARISON: 09/28/2022. TECHNIQUE: Multiplanar, multisequence MR images of the left knee wereobtained without the use of contrast. FINDINGS: MENISCI: Medial Meniscus: Broadly attenuated and extruded medial meniscal posteriorhorn and body segments. Posterior horn/body segment inner rim fraying/tearing suggested. No parameniscal cyst. Intact meniscal roots. Lateral Meniscus: Attenuated lateral meniscal body/posterior horn innerrim margins. No displaced tear or parameniscal cyst. Intact meniscal roots. LIGAMENTS/STABILIZERS: The ACL and PCL are intact. The MCL is intact. Mild reactive MCL periligamentous/posteromedial joint line edema. The iliotibial band, LCL,and biceps femoris/popliteus tendons are intact. OSSEOUS & ARTICULAR STRUCTURES: Bones: Degenerative subchondral marrow edema/degenerative cystic changesnoted in the marginal medial plateau plateau, weightbearing medial femoralcondyle, and central lateral tibial plateau. No macro fracture or discreteerosive changes. Alignment maintained. No worrisome marrow replacing process. Femorotibial Compartments: Medial femorotibial chondral attenuation/jointspace narrowing present. High-grade chondral wear regions noted regional tothe aforementioned subchondral bone signal alteration regions. Centrallateral tibial plateau chondral attenuation/spurring present. Patellofemoral Compartment: Generalized patellar chondral thinning notedwith chondral wear overlying the median ridge with degenerative subcorticalbone change/spurring. Medial trochlear chondral degeneration/subchondral boneplate spurring present. EXTENSOR MECHANISM/RETINACULA: The quadriceps and patellar tendons areintact. The retinacula are intact. FLUID/OTHER: Moderate complex effusion with findings of synovitis. NoBaker's cyst distention. Scarring in Hoffa's fat pad concordant with priorarthroscopy. IMPRESSION: 1. Moderate tricompartmental osteoarthrosis . Attenuation of the medialand lateral menisci in her rim margins compatible prior partialmeniscectomies. Medial meniscal extrusion present with inner rim tearing suggested by non-arthrographic assessment. 2. Intact cruciate/collateral ligaments and extensor mechanism. 3. Moderate complex effusion/findings of synovitis concordant with thepatient's history of inflammatory arthritis. Recent arthrocentesis/fluid analysis performed. - Note: Radiology results need to be interpreted within a comprehensiveclinical context. If you have questions about the radiology report, please contactthe office of the ordering clinician. Mirlande Murphy MD [facility] MRI ORDERABLES Final Result * CULTURE, AEROBIC BACTERIA-QUEST (11/16/2022 12:00 AM EDT) Aerobic Bacterial Culture SEE NOTE [facility] Comment: CULTURE, AEROBIC BACTERIA Micro Number: [id number] Test Status: Final Specimen Source: Not given Specimen Quality: Adequate Result: No Growth We received a specimen without an order or with an order for aerobic culture. Infections from this body site are appropriate for aerobic/anaerobic culture and microscopy. Therefore, an aerobic and anaerobic culture with Gram stain was performed. If this is not what you intended to order, please contact your local client development manager immediately so that we can adjust our billing appropriately. You may also inquire about alternative or additional testing. COMMENT: No source was provided. The specimen was tested and reported based upon the test code ordered. If this is incorrect, please contact client services. 11/16/2022 11/17/2022 10: 36 AM EDT Narrative QUEST - 11/22/2022 12:02 PM EDT FASTING: UNKNOWN Mirlande Murphy MD QUEST-MICROBIOLOGY ORDERABLES Fi nal Result Performing Organization Address [facility] Co de Phone Number [facility] [address] [place] [address] * CULTURE, ANAEROBIC BACTERIA W/GRAM STAIN-QUEST (11/16/2022 12:00 AM EDT) Bacteria Identified QUEST SEE NOTE [facility] Comment: CULTURE, ANAEROBIC BACTERIA W/GRAM STAIN Micro Number: [id number] Test Status: Final Specimen Source: Not given Specimen Quality: Adequate Gram Stain: Few White blood cells seen Few Red blood cells seen No organisms seen Result: No anaerobes isolated. We received a specimen without an order or with an order for aerobic culture. Infections from this body site are appropriate for aerobic/anaerobic culture and microscopy. Therefore, an aerobic and anaerobic culture with Gram stain was performed. If this is not what you intended to order, please contact your local client development manager immediately so that we can adjust our billing appropriately. You may also inquire about alternative or additional testing. 11/16/2022 11/17/2022 10: 36 AM EDT Narrative QUEST - 11/22/2022 12:02 PM EDT FASTING: UNKNOWN Mirlande Murphy MD QUEST-MICROBIOLOGY ORDERABLES Fi nal Result Performing Organization Address [facility] Co de Phone Number [facility] [address] [place] [address] * CLIENT EDUCATION TRACKING-QUEST (11/16/2022 12:00 AM EDT) COMMENTS [facility] Comment: The Requisition we received did not include a [facility] account number. To prevent delays in testing and processing of your orders please provide the following information with every order submitted: [facility] account number and account name Client address Client phone and fax number NPI number of ordering physician along with the physician name. 11/16/2022 11/17/2022 10: 36 AM EDT Narrative QUEST - 11/22/2022 12:02 PM EDT FASTING: UNKNOWN Mirlande TERRELL TEST IN QUESTION CODES Fin al Result [facility] [address] [place] [address] * DX BONE DENSITY AXIAL SKELETON (10/05/2022 10:16 AM EST) Anatomical Region Laterality Modality Dexa Scan 10/05/2022 Narrative 10/05/2022 3:58 PM EST Indication: The patient is a female age 65 or older who requires a bone density assessment. Study was performed on iExplore 5. Bone Density: Region BMD T-score Z-score AP Spine (L1-L4) 1.050 0.0 2.3 Femoral Neck (Left) 0.791 -0.5 1.4 Total Hip (Left) 0.973 0.3 1.9 Femoral Neck (Right) 0.732 -1.0 0.9 Total Hip (Right) 0.912 -0.2 1.4 World Health Organization criteria for BMD interpretation classify patients as: Normal (T-score at or above -1.0), Low Bone Density (T-score between -1.0 and -2.5), or Osteoporotic (T-score at or below -2.5). T Scores are reported in Postmenopausal women and in men age 50 and older. Z-scores are reported in females prior to menopause and in males younger than age 50. 10-year Fracture Risk: FRAX not reported because: All T-scores for Spine Total, Hip Total, Femoral Neck at or above -1.0 Clinical Information Provided by Patient: Has had a low trauma fracture Has rheumatoid arthritis Has used or is currently using the following medications: Vitamin D, Diuretic Has had or currently has the following medical conditions: Back pain, Hip pain, Vitamin D Insufficiency Patient maximum height was 61 Menopause Age: 49 Patient is postmenopause Interpretation: Bone mineral density is in the normal range. A minimum of two years may be required between bone density studies due to inherent testing precision limitations. Intervals between BMD testing should be determined according to each patient's clinical status. Reported by: Veronica Mccoy PA-C, CCD on 10/05/2022 10:29:00 AM. Mirlande Murphy MD IMG DEXA ORDERABLES Final Result * XR KNEE BILATERAL AP LATERAL AND SUNRISE STANDING (09/28/2022 4:14 PM EST) Anatomical Region Laterality Modality Knee Radiographic Praveena ging 09/28/2022 4:14 PM EST Impressions 09/28/2022 4:30 PM EST Bilateral osteoarthritis of the knees, more advanced on the left compared to the right. - Note: Radiology results need to be interpreted within a comprehensive clinical context. If you have questions about the radiology report, please contact the office of the ordering clinician. Narrative 09/28/2022 4:30 PM EST XR KNEE BILATERAL AP LATERAL AND SUNRISE STANDING, 09/28/2022 4:14 PM CLINICAL HISTORY: M54.50-Low back pain, ixudcxlingu-ABX-25-CM COMPARISON: None. PROCEDURE COMMENTS: Bilateral imaging per the ordered protocol. FINDINGS: Both knee show moderate osteoarthritis. Left knee shows subchondral cystic changes of the tibia. Neither knee shows acute fracture, dislocation or large effusion. Procedure Note Diaz Balderas MD - 09/28/2022 XR KNEE BILATERAL AP LATERAL AND SUNRISE STANDING, 09/28/2022 4:14 PM CLINICAL HISTORY: M54.50-Low back pain, gdeduyxiirz-UZV-83-CM COMPARISON: None. PROCEDURE COMMENTS: Bilateral imaging per the ordered protocol. FINDINGS: Both knee show moderate osteoarthritis. Left knee shows subchondralcystic changes of the tibia. Neither knee shows acute fracture, dislocation or large effusion. IMPRESSION: Bilateral osteoarthritis of the knees, more advanced on the left compared to the right. - Note: Radiology results need to be interpreted within a comprehensiveclinical context. If you have questions about the radiology report, please contactthe office of the ordering clinician. Mirlande Murphy MD IMG DIAGNOSTIC IMAGING ORDERABLE S Final Result * XR HAND BILATERAL PA LATERAL AND OBLIQUE (09/28/2022 4:14 PM EST) Anatomical Region Laterality Modality Hand Radiographic Praveena ging 09/28/2022 4:14 PM EST Impressions 09/28/2022 4:31 PM EST Bilateral osteoarthritis of the hands. - Note: Radiology results need to be interpreted within a comprehensive clinical context. If you have questions about the radiology report, please contact the office of the ordering clinician. Narrative 09/28/2022 4:31 PM EST XR HAND BILATERAL PA LATERAL AND OBLIQUE, 09/28/2022 4:14 PM CLINICAL HISTORY: M25.541-Pain in joints of right ibdf-RTL-76-CM M25.542-Pain in joints of left agml-TOQ-42-CM COMPARISON: None. PROCEDURE COMMENTS: Bilateral imaging per the ordered protocol. FINDINGS: There is bilateral osteoarthritis of the PIP and DIP joints of the fingers. There is bilateral osteoarthritis of the thumb and thumb basilar joint. There is left greater than right scaphoid trapezium degenerative change. There is no acute fracture or dislocation. No marginal erosions. No abnormal soft tissue calcifications identified. Procedure Note Diaz Balderas MD - 09/28/2022 XR HAND BILATERAL PA LATERAL AND OBLIQUE, 09/28/2022 4:14 PM CLINICAL HISTORY: M25.541-Pain in joints of right mzzl-YCR-48-CM M25.542-Pain in joints of left lufk-MST-88-CM COMPARISON: None. PROCEDURE COMMENTS: Bilateral imaging per the ordered protocol. FINDINGS: There is bilateral osteoarthritis of the PIP and DIP joints of thefingers. There is bilateral osteoarthritis of the thumb and thumb basilar joint.There is left greater than right scaphoid trapezium degenerative change. There is no acute fracture or dislocation. No marginal erosions. Noabnormal soft tissue calcifications identified. IMPRESSION: Bilateral osteoarthritis of the hands. - Note: Radiology results need to be interpreted within a comprehensiveclinical context. If you have questions about the radiology report, please contactthe office of the ordering clinician. us Mirlande CHOW DIAGNOSTIC IMAGING ORDERABLE S Final Result * XR HIPS BILATERAL AP LATERAL W AP PELVIS (09/28/2022 4:14 PM EST) Anatomical Region Laterality Modality Hip Radiographic Praveena ging 09/28/2022 4:14 PM EST Impressions 09/28/2022 4:33 PM EST No acute bony abnormality of the pelvis or hips. - Note: Radiology results need to be interpreted within a comprehensive clinical context. If you have questions about the radiology report, please contact the office of the ordering clinician. Narrative 09/28/2022 4:33 PM EST AP PELVIS WITH TWO VIEWS EACH HIP, 09/28/2022 4:14 PM CLINICAL HISTORY: M25.551-Pain in right ism-XOZ-76-CM M25.552-Pain in left bmi-UAM-00-CM COMPARISON: None. PROCEDURE COMMENTS: AP pelvis with AP and frogleg views of each hip. FINDINGS: Bony structure of the pelvis and hips intact. No fracture or dislocation. Bilateral mild to moderate osteoarthritis of the hips noted. Mild degenerative changes at the symphysis pubis are present. Procedure Note Diaz Balderas MD - 09/28/2022 AP PELVIS WITH TWO VIEWS EACH HIP, 09/28/2022 4:14 PM CLINICAL HISTORY: M25.551-Pain in right irw-JHX-28-CM M25.552-Pain in left mbs-MQJ-44-CM COMPARISON: None. PROCEDURE COMMENTS: AP pelvis with AP and frogleg views of each hip. FINDINGS: Bony structure of the pelvis and hips intact. No fracture or dislocation. Bilateral mild to moderate osteoarthritis of the hips noted. Milddegenerative changes at the symphysis pubis are present. IMPRESSION: No acute bony abnormality of the pelvis or hips. - Note: Radiology results need to be interpreted within a comprehensiveclinical context. If you have questions about the radiology report, please contactthe office of the ordering clinician. us Mirlande CHOW DIAGNOSTIC IMAGING ORDERABLE S Final Result * XR LUMBAR SPINE AP AND LATERAL (09/28/2022 4:14 PM EST) Anatomical Region Laterality Modality L-spine Radiographic Praveena ging 09/28/2022 4:14 PM EST Impressions 09/28/2022 4:30 PM EST No acute abnormality of the lumbar spine. - Note: Radiology results need to be interpreted within a comprehensive clinical context. If you have questions about the radiology report, please contact the office of the ordering clinician. Narrative 09/28/2022 4:30 PM EST AP AND LATERAL LUMBAR SPINE, 09/28/2022 4:14 PM CLINICAL HISTORY: M54.50-Low back pain, xyvhwstovqq-KHJ-52-CM M25.561-Pain in right qpds-GXU-32-CM M25.562-Pain in left qhpt-OLD-52-CM M25.541-Pain in joints of right oodl-SRD-17-CM M25.542-Pain in joints of left wsbl-YFF-62-CM COMPARISON: None. PROCEDURE COMMENTS: Minimum of 3 views lumbar spine per protocol. FINDINGS: Multilevel lumbar degenerative changes are present with robust facet hypertrophy most pronounced at L4-L5 and L5-S1 levels. No fracture, wedge deformity or lytic lesion identified. Procedure Note Diaz Balderas MD - 09/28/2022 AP AND LATERAL LUMBAR SPINE, 09/28/2022 4:14 PM CLINICAL HISTORY: M54.50-Low back pain, ndebqyrzopt-FOM-04-CM M25.561-Pain in right jdrg-MZE-05-CM M25.562-Pain in left hxku-LOI-34-CM M25.541-Pain in joints of right haoj-PXR-60-CM M25.542-Pain in joints of left bxzs-EFA-14-CM COMPARISON: None. PROCEDURE COMMENTS: Minimum of 3 views lumbar spine per protocol. FINDINGS: Multilevel lumbar degenerative changes are present with robustfacet hypertrophy most pronounced at L4-L5 and L5-S1 levels. No fracture, wedge deformity or lytic lesion identified. IMPRESSION: No acute abnormality of the lumbar spine. - Note: Radiology results need to be interpreted within a comprehensiveclinical context. If you have questions about the radiology report, please contactthe office of the ordering clinician. Mirlande Murphy MD [facility] DIAGNOSTIC IMAGING ORDERABLE S Final Result * VITAMIN D 25 HYDROXY-QUEST (09/28/2022 2:52 PM EST) VIT D 25 OH 47 30 - 100 ng/mL buuteeqJessica Bowling Comment: Vitamin D Status 25-OH Vitamin D: Deficiency: <20 ng/mL Insufficiency: 20 - 29 ng/mL Optimal: > or = 30 ng/mL For 25-OH Vitamin D testing on patients on D2-supplementation and patients for whom quantitation of D2 and D3 fractions is required, the QuestAssureD(TM) 25-OH VIT D, (D2,D3), LC/MS/MS is recommended: order code 63363 (patients >2yrs). See Note 1 Note 1 For additional information, please refer to http://education.MyPrepApp/faq/GFJ026 (This link is being provided for informational/ educational purposes only.) 09/28/2022 2:52 PM EST 09/28/2022 2:53 PM EST Mirlande Murphy MD [facility]-CHEMISTRY ORDERABLES Final Result JumpidoLes Bowling [address] [place] [address] * CREATININE ISTAT (11/17/2021 3:25 PM EDT) Only the most recent of6 resultswithin the time period is included. Pathologist [facility] Creatinine-iST AT 0.9 0.6 - 1.3 mg/dL 11/17/2021 3:28 PM EDT [facility] Blood BLOOD SPECIMEN / Unknown 11/17/2021 3:25 PM EDT 11/17/2021 3:28 PM EDT us Trish Doan APRN POINT OF CARE TEST ORD ERABLES Final Result [facility] [address] [place] [id number] * EC ECHOCARDIOGRAM LIMITED (10/26/2021 12:48 PM EST) Pathologist [facility] Ejection Fraction 65-70 % [facility] Anatomical Region Laterality Modality Electrocardiogra phy 10/26/2021 12:1 9 PM EST Impressions 10/27/2021 11:58 AM EST CONCLUSIONS * Today's study was ordered and performed as a limited Echo to evaluate pericardial effusion. A complete TTE was performed on 08/24/21 * Left Ventricular ejection fraction is estimated at 65-70%. No residual pericardial effusion. Narrative Procedure Note Tal Truong MD - 10/27/2021 IMPRESSION CONCLUSIONS * Today's study was ordered and performed as a limited Echo to evaluatepericardial effusion. A complete TTE was performed on 08/24/21 * Left Ventricular ejection fraction is estimated at 65-70%. No residual pericardial effusion. Lynsey Mendez VETERINARY X RAY OPERATOR IMG ECHO ORDERABLES Rae l Result * SCANNED EKG (08/25/2021 12:12 PM EST) Only the most recent of4 resultswithin the time period is included. Anatomical Region Laterality Modality Other 08/25/2021 12:1 2 PM EST Unknown Provider IMG ECG ORDERABLES Final Result * EC ECHOCARDIOGRAM COMPLETE W DOPPLER AND COLOR FLOW MAPPING (08/24/2021 4:02 PM EST) Only the most recent of3 resultswithin the time period is included. Ejection Fraction 65-70 % [facility] Anatomical Region Laterality Modality Electrocardiogra phy 08/24/2021 11:1 2 AM EST Impressions 08/25/2021 7:36 AM EST CONCLUSIONS Left ventricular ejection fraction is in the normal range. Mild mitral regurgitation. No aortic valve stenosis or regurgitation. Moderate pericardial effusion. Pericardial effusion findings suggest NO hemodynamically significant compromise. Narrative Procedure Note Asa Mayfield MD - 08/25/2021 IMPRESSION CONCLUSIONS Left ventricular ejection fraction is in the normal range. Mild mitral regurgitation. No aortic valve stenosis or regurgitation. Moderate pericardial effusion. Pericardial effusion findings suggest NO hemodynamically significantcompromise. us Fidelina Degroot MD IMG ECHO ORDERABLES Final R esult * (ABNORMAL) URINALYSIS (08/24/2021 1:53 PM EST) UA Color Light Yellow 08/24/2021 2:12 PM EST [facility] UA Appear Cloudy(A) Clear 08/24/2021 2:12 PM EST [facility] UA Glucose Negative Negative mg/dL 08/24/2021 2:12 PM EST [facility] UA Ketones Negative Negative mg/dL 08/24/2021 2:12 PM EST [facility] UA Blood 3+ (>= 1.0 mg/dL)(A) Negative 08/24/2021 2:12 PM EST [facility] UA pH 6.0 5.0 - 8.0 pH 08/24/2021 2:12 PM EST [facility] UA Protein Negative Negative mg/dL 08/24/2021 2:12 PM EST [facility] UA Urobilinogen Normal <=1 mg/dL 2:12 PM EST [facility] UA Bili Negative Negative 08/24/2021 2:12 PM EST [facility] UA Nitrite Negative Negative 08/24/2021 2:12 PM EST [facility] UA Leuk Est 2+ (75 Todd/mcl)(A) Negative 08/24/2021 2:12 PM EST [facility] UA Spec Grav 1.011 1.001 - 1.035 no units 08/24/2021 2:12 PM EST [facility] Comment:Reference range angelica d for random specimens only. UA WBC 2 0 - 4 /HPF 08/24/2021 2:12 PM EST [facility] UA RBC 5(H) 0 - 3 /HPF 08/24/2021 2:12 PM EST [facility] UA Squam Epi 4+ /LPF 08/24/2021 2:12 PM EST [facility] UA Mucus Trace /LPF 08/24/2021 2:12 PM EST [facility] UA Amorph Trace /LPF 08/24/2021 2:12 PM EST [facility] UA Bacteria Trace(A) Negative /HPF 08/24/2021 2:12 PM EST [facility] UA Hyal Cast 1 0 - 2 /LPF 08/24/2021 2:12 PM EST [facility] UA Trans Epi <1(H) <=0 /HPF 08/24/2021 2:12 PM EST [facility] Urine URINE SPECIMEN COLLECTION, CLEAN CATCH / Unknown 08/24/2021 1:53 PM EST 08/24/2021 1:55 PM EST Fidelina Degroot MD URINE ORDERABLES Final Resu lt Performing Organization Address [facility] Co de Phone Number [facility] [employer], [address] , [place] [address] * (ABNORMAL) HEMOGLOBIN AND HEMATOCRIT (08/24/2021 1:06 PM EST) Hgb 10.8(L) 11.2 - 15.7 g/dL 08/24/2021 1:29 PM EST [facility] Hct 33.1(L) 34.0 - 45.0 % 08/24/2021 1:29 PM EST [facility] Blood VENOUS BLOOD / Unknown Venipuncture / Unknown 08/24/2021 1:06 PM EST 08/24/2021 1:15 PM EST Fidelina Degroot MD HEMATOLOGY ORDERABLES Final Result Performing Organization Address [facility] Co de Phone Number [facility] [employer], [address] , [place] [address] * XR CHEST AP PORTABLE (08/24/2021 7:49 AM EST) Only the most recent of2 resultswithin the time period is included. Anatomical Region Laterality Modality Chest Radiographic Praveena ging 08/24/2021 7:49 AM EST Impressions 08/24/2021 8:04 AM EST Cardiomegaly, new since 2014. No acute cardiopulmonary disease identified. - Note: Radiology results need to be interpreted within a comprehensive clinical context. If you have questions about the radiology report, please contact the office of the ordering clinician. Narrative 08/24/2021 8:04 AM EST XR CHEST AP PORTABLE, 08/24/2021 7:49 AM CLINICAL HISTORY: -IRREGULAR HEART BEAT COMPARISON: 10/02/2014. PROCEDURE COMMENTS: AP portable technique. FINDINGS: Heart is mildly to moderately enlarged, and has increased in size compared to prior 2014 exam. No localized infiltrate, fluid, or failure. Procedure Note Carlos Luque MD - 08/24/2021 XR CHEST AP PORTABLE, 08/24/2021 7:49 AM CLINICAL HISTORY: -IRREGULAR HEART BEAT COMPARISON: 10/02/2014. PROCEDURE COMMENTS: AP portable technique. FINDINGS: Heart is mildly to moderately enlarged, and has increased insize compared to prior 2014 exam. No localized infiltrate, fluid, or failure. IMPRESSION: Cardiomegaly, new since 2014. No acute cardiopulmonary disease identified. - Note: Radiology results need to be interpreted within a comprehensiveclinical context. If you have questions about the radiology report, please contactthe office of the ordering clinician. us Fidelina Degroot MD IM DIAGNOSTIC IMAGING ORDAlfredo [place] Final Result * TROPONIN-T HIGH SENSITIVITY 2HR (08/24/2021 3:02 AM EST) Only the most recent of2 resultswithin the time period is included. oy-hUqqriiia-C 2HR 13 <14 ng/L 08/24/2021 3:38 AM EST Ahead Comment:See the website Tern for rule out [place] care pathway, conditions other than AMI that can cause elevated hs cTnT, and comparison of values from the 4th and 5th generation Amarilis tests. https://askmayoexpert.[facility].org/topic/clinical-answers/gnt-43244601/cpm-203 64832 hs-cTnT 2Hr Delta from Baseline 0 <4 ng/L 08/24/2021 3:38 AM EST [facility] Blood VENOUS BLOOD / Unknown Venipuncture / Unknown 08/24/2021 3:02 AM EST 08/24/2021 3:10 AM EST Narrative Ahead - 08/24/2021 3:38 AM EST Ingestion of bettye doses of biotin (>5 mg/day) taken within 8 hours of drawing blood sample can interfere with this immunoassay test. Jatin Reed MD CHEMISTRY ORDERABLES Final R esult Performing Organization Address City/[facility]/ZIP Co de Phone Number [facility] [address] [facility] , [place] [address] * CORONAVIRUS 2019 (08/24/2021 2:25 AM EST) Only the most recent of3 resultswithin the time period is included. [facility] CORONAVIRUS [id number] Not Detected Not Detected 08/24/2021 11:10 AM EST Ahead Comment: Caution should be exercised when interpreting a result of 'Not Detected'. A result of 'Not Detected' does not rule out COVID-19 and cannot be used as sole basis for treatment or patient management decisions. If COVID-19 is still suspected following a 'Not Detected' result, re-testing should be considered. This test is a nucleic acid amplification test intended for the qualitative detection of nucleic acid from the SARS-CoV-2 in upper respiratory samples collected from individuals suspected of COVID-19. Test is performed on the [employer] platform under the FDA's Emergency Use Authorization (EUA). [employer] Provider Fact Sheet: https://www.fda.gov/media/880495/download [employer] Patient Fact Sheet: https://www.fda.gov/media/545599/download Performed at [facility] [address] [place] [address] CLIA [id number] Swab BOTH ANTERIOR NARES / Unknown 08/24/2021 2:25 AM EST 08/24/2021 2:31 AM EST Jatin Reed MD MICROBIOLOGY - GENERAL ORDER DAVE Final Result Performing Organization Address City/[facility]/ZIP Co de Phone Number [facility] [address] [facility] [address], [place] [address] * EK EKG 12 LEAD (08/24/2021 1:46 AM EST) Only the most recent of6 resultswithin the time period is included. Anatomical Region Laterality Modality Electrocardiogra phy 08/24/2021 2:06 AM EST Impressions 08/24/2021 8:[address] [facility] [facility] Test Date: 2021-08-24 Pat Name: [facility] Department: DEPID Room: 20 Gender: Female Spearer: : 1950 Requested By: JATIN Plascencia Order Number: [id number] Reading MD: Pérez Fair MD Measurements Intervals [place] Rate: 77 P: 45 LA: 127 QRS: 44 QRSD: 89 T: 0 QT: 347 QTc: 393 Interpretive Statements SINUS RHYTHM WITH OCCASIONAL ATRIAL PREMATURE BEATS ABNORMAL P WAVES LOW QRS VOLTAGE IN PRECORDIAL LEADS NSSTTWA COMPARED TO 08/24/21 THE NARROW COMPLEX TACHYCARDIA HAS DISAPPEARED Electronically Signed On 08-24-2021 8:26:15 EST by Pérez Fair MD Narrative Procedure Note Pérez Fair MD - 08/24/[address] [facility] Test Date: 2021-08-24 Pat Name: BAR[facility] Department: DEPID Room: 20 Gender: Female Spearer: : 1950 Requested By: JATIN Plascencia Order Number: [id number] Reading MD: Pérez Fair MD Measurements Intervals [place] Rate: 77 P: 45 LA: 127 QRS: 44 QRSD: 89 T: 0 QT: 347 QTc: 393 Interpretive Statements SINUS RHYTHM WITH OCCASIONAL ATRIAL PREMATURE BEATS ABNORMAL P WAVES LOW QRS VOLTAGE IN PRECORDIAL LEADS NSSTTWA COMPARED TO 08/24/21 THE NARROW COMPLEX TACHYCARDIA HAS DISAPPEARED Electronically Signed On 08-24-2021 8:26:15 EST by Pérez Fair MD us Jatin Reed MD IMG ECG ORDERABLES Final Res ult * (ABNORMAL) CBC (08/24/2021 1:14 AM EST) Only the most recent of3 resultswithin the time period is included. WBC 12.9(H) 3.7 - 10.3 x10(3)/mcL 08/24/2021 1:25 AM EST [facility] RBC 3.89(L) 3.90 - 5.20 x10(6)/mcL 08/24/2021 1:25 AM EST [facility] Hgb 12.1 11.2 - 15.7 g/dL 08/24/2021 1:25 AM EST [facility] Hct 36.7 34.0 - 45.0 % 08/24/2021 1:25 AM EST [facility] MCV 94.3 80.0 - 100.0 fL 08/24/2021 1:25 AM EST [facility] MCH 31.1 26.0 - 34.0 pg 08/24/2021 1:25 AM EST [facility] MCHC 33.0 30.7 - 35.5 g/dL 08/24/2021 1:25 AM EST [facility] RDW 12.9 <=14.9 % 08/24/2021 1:25 AM EST [facility] Platelet 548(H) 155 - 369 x10(3)/mcL 08/24/2021 1:25 AM EST [facility] MPV 9.8 8.8 - 12.5 fL 08/24/2021 1:25 AM EST [facility] Blood VENOUS BLOOD / Unknown Venipuncture / Unknown 08/24/2021 1:14 AM EST 08/24/2021 1:16 AM EST us Jatin Reed MD HEMATOLOGY ORDERABLES Final Result [facility] [address] [place] [id number] * (ABNORMAL) NT PROBNP (08/24/2021 1:11 AM EST) NT Pro-BNP 1,063(H) <=353 pg/mL 08/24/2021 2:22 AM EST [facility], [facility] Blood VENOUS BLOOD / Unknown Venipuncture / Unknown 08/24/2021 1:11 AM EST 08/24/2021 1:16 AM EST Narrative Ahead - 08/24/2021 2:22 AM EST An NT pro-BNP level less than 300 pg/mL in any patient, regardless of age, effectively rules out acute CHF with a 99% negative predictive value. Ingestion of bettye doses of biotin (>5 mg/day) taken within 8 hours of drawing blood sample can interfere with this immunoassay test. Jatin Reed MD CHEMISTRY ORDERABLES Final R esult Performing Organization Address [facility] Co de Phone Number [facility] [address] [place] [address] [place] [address] * TROPONIN-T HIGH SENSITIVITY BASELINE W/ REFLEX (08/24/2021 12:51 AM EST) Only the most recent of2 resultswithin the time period is included. vg-wHieokxxd-N 13 <14 ng/L 08/24/2021 1:29 AM EST Ahead Comment:See the website [employer] for rule out [place] care pathway, conditions other than AMI that can cause elevated hs cTnT, and comparison of values from the 4th and 5th generation Amarilis tests. https://askmayoexpert.[facility].org/topic/clinical-answers/gnt-56782686/cpm-203 76151 Blood VENOUS BLOOD / Unknown Venipuncture / Unknown 08/24/2021 12:51 AM EST 08/24/2021 12:51 AM EST Narrative Ahead - 08/24/2021 1:29 AM EST Ingestion of bettye doses of biotin (>5 mg/day) taken within 8 hours of drawing blood sample can interfere with this immunoassay test. Jatin Reed MD CHEMISTRY ORDERABLES Final R esult Performing Organization Address City/[facility] Co de Phone Number [facility] [address] [place] [address] [place] [address] * TSH REFLEX (08/24/2021 12:51 AM EST) Only the most recent of2 resultswithin the time period is included. TSH Reflex 2.120 0.270 - 4.200 mcIU/mL 08/24/2021 1:35 AM EST [facility] Blood VENOUS BLOOD / Unknown Venipuncture / Unknown 08/24/2021 12:51 AM EST 08/24/2021 12:51 AM EST Narrative PREFERRED 6APT - 08/24/2021 1:35 AM EST Ingestion of bettye doses of biotin (>5 mg/day) taken within 8 hours of drawing blood sample can interfere with this immunoassay test. Jatin Reed MD CHEMISTRY ORDERABLES Final R [facility] Performing Organization Address City/[facility]/ZIP Co de Phone Number [facility] [address] [place] [address] , [place] [address] * PHOSPHORUS LEVEL (08/24/2021 12:51 AM EST) Phosphorus 2.9 2.5 - 4.5 mg/dL 08/24/2021 1:31 AM EST [facility] Blood VENOUS BLOOD / Unknown Venipuncture / Unknown 08/24/2021 12:51 AM EST 08/24/2021 12:51 AM EST us Jatin Reed MD CHEMISTRY ORDERABLES Final R esult Performing Organization Address [facility]/ZIP Co de Phone Number [facility] [employer] [address] , [place] [address] * (ABNORMAL) MAGNESIUM LEVEL (08/24/2021 12:51 AM EST) Only the most recent of2 resultswithin the time period is included. Magnesium 1.3(L) 1.6 - 2.4 mg/dL 08/24/2021 1:31 AM EST [facility] Blood VENOUS BLOOD / Unknown Venipuncture / Unknown 08/24/2021 12:51 AM EST 08/24/2021 12:51 AM EST us Jatin Reed MD CHEMISTRY ORDERABLES Final R esult [facility] LAB [facility] [address] [facility] , [place] [address] * (ABNORMAL) COMPREHENSIVE METABOLIC PANEL (08/24/2021 12:51 AM EST) Only the most recent of3 resultswithin the time period is included. Sodium 138 136 - 145 mmol/L 08/24/2021 1:31 AM EST [facility] Potassium 3.7 3.5 - 5.0 mmol/L 08/24/2021 1:31 AM EST [facility] Chloride 98 98 - 107 mmol/L 08/24/2021 1:31 AM EST [facility] Total CO2 23 22 - 29 mmol/L 08/24/2021 1:31 AM EST [facility] Anion Gap 17(H) 7 - 16 mmol/L 08/24/2021 1:31 AM EST [facility] Calcium 9.9 8.8 - 10.4 mg/dL 08/24/2021 1:31 AM EST [facility] Glucose Lvl 143(H) 82 - 100 mg/dL 08/24/2021 1:31 AM EST [facility] BUN 13 8 - 23 mg/dL 08/24/2021 1:31 AM EST [facility] Creatinine 0.85 0.51 - 1.30 mg/dL 08/24/2021 1:31 AM EST [facility] Albumin 4.1 3.2 - 4.6 gm/dL 08/24/2021 1:31 AM EST [facility] Total Protein 7.2 6.4 - 8.3 gm/dL 08/24/2021 1:31 AM EST [facility] Bili Total 1.0 0.1 - 1.3 mg/dL 08/24/2021 1:31 AM EST [facility] ALT 35 <=41 U/L 08/24/2021 1:31 AM EST [facility] AST 27 <=40 U/L 08/24/2021 1:31 AM EST [facility] Alk Phos 160(H) 36 - 123 U/L 08/24/2021 1:31 AM EST [facility] eGFR (CKD-EPIcr 2020) 72 >=60 mL/min/1.7 3 m2 08/24/2021 1:31 AM EST [facility] Comment:Estimated GFR was ca lculated using the CKD-EPIcr (2020) equation refit without race. The equation is recommended by the National Kidney Foundation - [place] [employer] of Nephrology Task Force. Blood VENOUS BLOOD / Unknown Venipuncture / Unknown 08/24/2021 12:51 AM EST 08/24/2021 12:51 AM EST Jatin Reed MD CHEMISTRY ORDERABLES Final R esult Performing Organization Address [facility] Co de Phone Number [employer] [address] , [place] [address] [facility] [address] [place] [address] * PLATELET COUNT (01/12/2021 6:35 AM EDT) Platelet 321 155 - 369 x10(3)/[facility] 01/12/2021 8:24 AM EDT [facility] MPV 10.6 8.8 - 12.5 fL 01/12/2021 8:24 AM EDT [facility] Blood VENOUS BLOOD / Unknown Venipuncture / Unknown 01/12/2021 6:35 AM EDT 01/12/2021 8:17 AM EDT Jatin Cotne MD HEMATOLOGY ORDERABLES Final R esult Performing Organization Address [facility] Co de Phone Number [facility] [employer] [employer] [address] , [place] [phone] * (ABNORMAL) CBC WITH DIFF (01/10/2021 6:55 AM EDT) Only the most recent of8 resultswithin the time period is included. WBC 11.5(H) 3.7 - 10.3 x10(3)/mcL 01/10/2021 7:12 AM EDT [facility] RBC 3.27(L) 3.90 - 5.20 x10(6)/mcL 01/10/2021 7:12 AM EDT [facility] Hgb 10.4(L) 11.2 - 15.7 g/dL 01/10/2021 7:12 AM EDT [facility] Hct 30.8(L) 34.0 - 45.0 % 01/10/2021 7:12 AM EDT [facility] MCV 94.2 80.0 - 100.0 fL 01/10/2021 7:12 AM EDT [facility] MCH 31.8 26.0 - 34.0 pg 01/10/2021 7:12 AM EDT [facility] MCHC 33.8 30.7 - 35.5 g/dL 01/10/2021 7:12 AM EDT [facility] RDW 14.1 <=14.9 % 01/10/2021 7:12 AM EDT [facility] Platelet 303 155 - 369 x10(3)/mcL 01/10/2021 7:12 AM EDT [facility] MPV 9.5 8.8 - 12.5 fL 01/10/2021 7:12 AM EDT [facility] Neut Percent 81.1 % 01/10/2021 7:12 AM EDT [facility] Comment:Neutrophils equals s egs plus bands Imm Gran% 0.4 % 01/10/2021 7:12 AM EDT [facility] Comment:Automated count of m etamyelocytes, myelocytes and promyelocytes. Lymph Percent 12.0 % 01/10/2021 7:12 AM EDT [facility] [place] Percent 6.4 % 01/10/2021 7:12 AM EDT [facility] Eos Percent 0.0 % 01/10/2021 7:12 AM EDT [facility] Baso Percent 0.1 % 01/10/2021 7:12 AM EDT [facility] Neut # 9.4(H) 1.6 - 6.1 x10(3)/mcL 01/10/2021 7:12 AM EDT [facility] Comment:Neutrophils equals s egs plus bands IMMGRAN# 0.1 0.0 - 0.1 x10(3)/[facility] 01/10/2021 7:12 AM EDT [facility] Comment:Automated count of m etamyelocytes, myelocytes and promyelocytes. An absolute IG <0.1 is reported as 0.0. Lymph # 1.4 1.2 - 3.9 x10(3)/[facility] 01/10/2021 7:12 AM EDT [facility] [place] # 0.7 0.3 - 0.9 x10(3)/[facility] 01/10/2021 7:12 AM EDT [facility] Eos# 0.0 0.0 - 0.5 x10(3)/[facility] 01/10/2021 7:12 AM EDT [facility] Baso # 0.0 0.0 - 0.1 x10(3)/[facility] 01/10/2021 7:12 AM EDT [facility] Blood VENOUS BLOOD / Unknown Venipuncture / Unknown 01/10/2021 6:55 AM EDT 01/10/2021 7:02 AM EDT us Jatin Conte MD HEMATOLOGY ORDERABLES Final R esult [facility] [address] [facility] , [place] [address] * (ABNORMAL) BASIC METABOLIC PANEL (01/10/2021 6:55 AM EDT) Only the most recent of4 resultswithin the time period is included. Sodium 135(L) 136 - 145 mmol/L 01/10/2021 7:37 AM EDT [facility] Potassium 3.8 3.5 - 5.0 mmol/L 01/10/2021 7:37 AM EDT [facility] Chloride 101 98 - 107 mmol/L 01/10/2021 7:37 AM EDT [facility] Total CO2 23 22 - 29 mmol/L 01/10/2021 7:37 AM EDT [facility] Anion Gap 11 7 - 16 mmol/L 01/10/2021 7:37 AM EDT [facility] Calcium 8.4(L) 8.8 - 10.4 mg/dL 01/10/2021 7:37 AM EDT [facility], [facility] Glucose Lvl 132(H) 82 - 100 mg/dL 01/10/2021 7:37 AM EDT [facility], [facility] BUN 15 8 - 23 mg/dL 01/10/2021 7:37 AM EDT [facility], [facility] Creatinine 1.02 0.51 - 1.30 mg/dL 01/10/2021 7:37 AM EDT [facility], [facility] GFR Afr Am 64 >=60 mL/min/1.7 3 m2 01/10/2021 7:37 AM EDT [facility] GFR Non Afr Am 55(L) >=60 mL/min/1.7 3 m2 01/10/2021 7:37 AM EDT [facility] Comment: This estimated GFR was calculated using CKD-EPI equation which is modified based on ethnicity for Non Americans and Americans. Both results are reported since it is not always possible to determine the patient's ethnicity. This equation should only be used for individuals 18 and older. It has not been validated for use with the elderly (>70 years), women, or in some racial or ethnic subgroups, such as Hispanics. The equation will be less accurate in people with differences in nutritional status or muscle mass. Blood VENOUS BLOOD / Unknown Venipuncture / Unknown 01/10/2021 6:55 AM EDT 01/10/2021 7:02 AM EDT Jatin Conte MD CHEMISTRY ORDERABLES Final Re sult [facility], [facility] [address] [facility], [place] [address] [facility] [address] [place] [address] * PATHOLOGY TISSUE REQUEST (01/09/2021 1:33 PM EDT) CASE REPORT Surgical Pathology Case: [id number] Authorizing Provider: Jatin Conte MD Collected: 01/09/2021 1333 Ordering Location: [facility] Received: 01/11/2021 1022 Pathologist: Rakesh Martinez MD Specimen: Abdominal, sigmoid colon 01/13/2021 12:19 PM EDT [facility] FINAL DIAGNOSIS Sigmoid Colon, Segmental Resection: - Gross and Histologic Changes of Diverticulosis and Diverticulitis. - Diverticular Perforation with Mesenteric Abscess. - Surgical Margins Viable and Uninvolved. 01/13/2021 12:19 PM EDT [facility] at 1219 EDT MICROSCOPIC DESCRIPTION Microscopic examination is performed and the findings corroborate the diagnosis. 01/13/2021 12:19 PM EDT [facility] EMBEDDED IMAGES 01/13/2021 12:19 PM T [facility] GROSS DESCRIPTION Received in formalin, labeled with the patient's name and sigmoid colon . One end of the specimen is received open, the opposing stapled. It consists of a 12.0 cm in length segment of large bowel with up to 5.0 cm of attached yellow-purple, lobular adipose tissue. The serosa is ji, smooth, and glistening. A 0.9 x 0.8 cm partial thickness defect is identified on the external surface, 5.5 cm from the nearest unstapled margin. The tissue surrounding the defect is inked blue and the specimen is opened to reveal ji, grossly unremarkable mucosa with the usual intestinal folding pattern. No masses or polyps are grossly appreciated. Two intact diverticula are identified, coming to within 1.0 cm of the nearest open margin. The open luminal circumference averages 2.7 cm. The wall thickness ranges from 0.6 to 0.9 cm. Line Helper sections are submitted as follows: A1 = margin nearest diverticulum and defect, en face A2 = opposing, stapled margin, en face A3-A4 = external surface defect A5 = intact diverticulum Received separately in the container is a 2.2 x 1.8 x 0.7 cm annular portion of ji, grossly unremarkable bowel wall. No sections are submitted from this portion of the specimen. /BR 01/13/2021 12:19 PM T [facility] Tissue ABDOMEN / Unknown 01/09/2021 1:33 PM EDT 01/11/2021 10:22 AM EDT Jatin Conte MD PATHOLOGY ORDERABLES Final Re sult Performing Organization Address [facility] Co de Phone Number [facility] [address] [place] [address] [facility] [address] [place], [place] [id number] * INTRAOP AIRWAY PLACEMENT (01/09/2021 8:55 AM EDT) Narrative [facility] - 01/09/2021 8:55 AM EDT Burt Thurman CRNA 01/09/2021 8:55 AM Intraop Airway Placement: Date/Time: 01/09/2021 8:17 AM Induction type: IV Mask size: Standard adult Pre-Oxygenation: Standard Mask ventilation: Easy mask ventilation Technique: Video laryngoscope Laryngoscope blade: Uriostegui Blade size: 3 Grade view: I Airway type: ETT- cuffed Topical Anesthetic/Lubricant: Lubricant jelly Intubation assist devices: Stylet 14fr Airway location: Oral Device size: 7mm Secured at: 21 cm Secured by: Tape Measured from: Teeth Placement verified: Auscultation, End tidal CO2 and Symmetric chest wall motion Condition: Atraumatic and Unchanged Insertion attempts: 1 Attempt 1 by: Olman Title: [employer]CEIVER [employer] Ahsan Ruiz DO LA ANESTHESIA Final Res ult Performing Organization Address [facility] de Phone Number [facility] [address] [place] [address] * BB HISTORY CHECK (01/09/2021 6:24 AM EDT) Only the most recent of2 resultswithin the time period is included. BB HISTORY CHECK (1) Previous History OK 01/09/2021 6:43 AM EDT [facility] Blood VENOUS BLOOD / Unknown Venipuncture / Unknown 01/09/2021 6:24 AM EDT 01/09/2021 6:32 AM EDT Jatin Conte MD BLOOD BANK ORDERABLES Final R esult Performing Organization Address [facility] Co de Phone Number [facility] [address] [place] [id number] * ABORH (01/09/2021 6:24 AM EDT) Only the most recent of2 resultswithin the time period is included. ABORH Int A POS 01/09/2021 7:2 7 AM EDT [facility] Blood VENOUS BLOOD / Unknown Venipuncture / Unknown 01/09/2021 6:24 AM EDT 01/09/2021 6:32 AM EDT Jatin Conte MD BLOOD BANK ORDERABLES Final R esult Performing Organization Address City/[facility]/ZIP Co de Phone Number [facility] [place] [address] * SURGERY DATE (12/31/2020 2:15 PM EDT) [facility] Surgery Date (1) Complete 12/31/2020 2:24 PM EDT [facility] Blood VENOUS BLOOD / Unknown Venipuncture / Unknown 12/31/2020 2:15 PM EDT 12/31/2020 2:21 PM EDT [employer] BLOOD BANK ORDERABLES Fin al Result Performing Organization Address [facility] Co de Phone Number [facility] [place] [phone] * ANTIBODY SCREEN IGG (12/31/2020 2:15 PM EDT) [facility] ABSC IgG Int Negative 12/31/2020 3:40 PM EDT [facility] Blood VENOUS BLOOD / Unknown Venipuncture / Unknown 12/31/2020 2:15 PM EDT 12/31/2020 2:21 PM EDT [employer] BLOOD BANK ORDERABLES Fin al Result Performing Organization Address City/[facility]/ZIP Co de Phone Number [facility] [place] [address] * CT ANGIOGRAM PULMONARY W CONTRAST (12/23/2020 1:36 AM EDT) Anatomical Region Laterality Modality Chest Computed Tomogra phy 12/23/2020 1:36 AM EDT Impressions 12/23/2020 1:49 AM EDT Basal atelectasis. No PE or other acute process. - Note: Radiology results need to be interpreted within a comprehensive clinical context. If you have questions about the radiology report, please contact the office of the ordering clinician. Narrative 12/23/2020 1:[address] PULMONARY ANGIOGRAM, 12/23/2020 1:36 AM CLINICAL HISTORY: -pleuritic L sided CP, recent hospitalization, r/o PE. COMPARISON: Chest pain TECHNIQUE: PE protocol CT angiogram of the chest with 75 mL Isovue 370 intravenous contrast material with 2-D multiplanar reconstructions and 3-D MIP reconstructions. FINDINGS: Minimal basilar atelectasis. Lungs are otherwise clear. No significant pleural or pericardial fluid identified. Tracheobronchial tree patent. No pathologically enlarged nodes. No gross dissection. No PE. Procedure Note Florentino Oliver MD - 12/23/2020 CT PULMONARY ANGIOGRAM, 12/23/2020 1:36 AM CLINICAL HISTORY: -pleuritic L sided CP, recent hospitalization, r/o PE. COMPARISON: Chest pain TECHNIQUE: PE protocol CT angiogram of the chest with 75 mL Isovue 370 intravenous contrast material with 2-D multiplanar reconstructions and 3-DMIP reconstructions. FINDINGS: Minimal basilar atelectasis. Lungs are otherwise clear. No significant pleural or pericardial fluid identified. Tracheobronchialtree patent. No pathologically enlarged nodes. No gross dissection. No PE. IMPRESSION: Basal atelectasis. No PE or other acute process. - Note: Radiology results need to be interpreted within a comprehensiveclinical context. If you have questions about the radiology report, please contactthe office of the ordering clinician. Francisco Javier Givens MD IM CT ORDERABLES Final R esult * (ABNORMAL) HEMOGLOBIN A1C (11/18/2020 7:36 AM EDT) Hgb A1C 6.1(H) 4.2 - 5.6 % 11/18/2020 9:06 AM EDT [facility] [employer] [facility] Est. Avg Glucose 128 mg/dL 11/18/2020 9:06 AM EDT [facility] [employer] [facility] Blood VENOUS BLOOD / Unknown Venipuncture / Unknown 11/18/2020 7:36 AM EDT 11/18/2020 7:47 AM EDT Narrative [facility] [employer] [facility] - 11/18/2020 9:06 AM EDT REFERENCE RANGE: Normal: 4.0-5.6% Pre-diabetes: 5.7-6.4% Provisional diagnosis of diabetes: >6.4% Hgb F>10% and anything which shortens red cell survival, such as hemolytic anemia, or unstable hemoglobin variants such as HbSS, HbSC, or HbCC, will lower the HbA1c value associated with a given level of glycemic control. us Kevin Lee MD CHEMISTRY ORDERABLES Final Resul t [facility] [address] [facility] , [place] [address] * (ABNORMAL) LIPID SCREEN (11/18/2020 7:36 AM EDT) Cholesterol 223(H) <200 mg/dL 11/18/2020 8:32 AM EDT [facility] Comment: < 200 Desirable 200 - 239 Borderline High >= 240 High Triglyceride 135 <150 mg/dL 11/18/2020 8:32 AM EDT [facility] Comment: < 150 Normal 150 - 199 Borderline High 200 - 499 High >= 500 Very High HDL 53 >=40 mg/dL 11/18/2020 8:32 AM EDT [facility] Comment: > 60 Optimal 40 - 60 Acceptable < 40 Low LDL Calculated 143(H) <100 mg/dL 11/18/2020 8:32 AM EDT [facility] Comment: < 100 Optimal 100 - 129 Near or above optimal 130 - 159 Borderline High 160 - 189 High >= 190 Very High Non-HDL-C Calculated 170(H) <=129 mg/dL 11/18/2020 8:32 AM EDT [facility] Comment: <130 Desirable 130-159 Above Desirable 160-189 Borderline High 190-219 High >= 220 Very High Fasting Specimen? Yes None 021 8:32 AM EDT [facility] Blood VENOUS BLOOD / Unknown Venipuncture / Unknown 11/18/2020 7:36 AM EDT 11/18/2020 7:47 AM EDT us Kevin Lee MD CHEMISTRY ORDERABLES Final Resul t Performing Organization Address [facility] Co de Phone Number [facility] [address] [facility], [place] [address] [facility] [address] [place], [place] [id number] * LACTIC ACID (11/17/2020 12:27 AM EDT) Lactic Acid 1.6 0.5 - 1.9 mmol/L 11/17/2020 12:48 AM EDT [facility] Blood VENOUS BLOOD / Unknown Venipuncture / Unknown 11/17/2020 12:27 AM EDT 11/17/2020 12:32 AM EDT us Gloria Rosas DO CHEMISTRY ORDERABLES Final Res ult Performing Organization Address [facility] de Phone Number [address] [address] * CT ABDOMEN PELVIS WITH ORAL WO IV CONTRAST (03/22/2019 11:45 AM EDT) Anatomical Region Laterality Modality Abdomen Computed Tomogra phy 03/22/2019 11:4 5 AM EDT Impressions 03/22/2019 12:15 PM EDT Suspect resolving subacute diverticulitis changes of the sigmoid colon. Nonobstructive bowel gas pattern. If the patient has no progressive clinical improvement, consider colonoscopy. - - Narrative 03/22/2019 12:[address] ABDOMEN AND PELVIS WITH ORAL AND WITHOUT IV CONTRAST, 03/22/2019 11:45 AM CLINICAL HISTORY: K57.80-Diverticulitis of intestine, part unspecified, with perforation and abscess without [id number] COMPARISON: Prior comparison contrast abdominal/pelvic CT study, 03/06/2019. PROCEDURE COMMENTS: Multi-detector volumetric scanning of the abdomen with multiplanar reformatting. Oral contrast was given. No IV contrast. Automated exposure control for dose reduction was used. CTDIvol: 8.0 mGy. DLP: 366 mGy-cm. FINDINGS: LOWER THORAX: The visualized bases are clear. No focal pleural effusion. ABDOMEN AND PELVIS: Unremarkable CT appearance of the unopacified liver, spleen, adrenals, pancreas and gallbladder. Nonobstructive bowel gas pattern. The kidneys are symmetric in size without evidence of obstruction or nephrolithiasis. Normal appendix. Stable CT appearance of the uterus/adnexal structures. Residual short segmental colonic wall thickening with adjacent linear stranding of the pericolonic fat. Suspect resolving subacute diverticulitis changes of sigmoid colon. Procedure Note Dean Rubi DO - 03/22/2019 CT ABDOMEN AND PELVIS WITH ORAL AND WITHOUT IV CONTRAST, 03/22/2019 11:45AM CLINICAL HISTORY: K57.80-Diverticulitis of intestine, part unspecified,with perforation and abscess without [id number]-CM COMPARISON: Prior comparison contrast abdominal/pelvic CT study,03/06/2019. PROCEDURE COMMENTS: Multi-detector volumetric scanning of the abdomenwith multiplanar reformatting. Oral contrast was given. No IV contrast.Automated exposure control for dose reduction was used. CTDIvol: 8.0 mGy. DLP: 366mGy-cm. FINDINGS: LOWER THORAX: The visualized bases are clear. No focal pleuraleffusion. ABDOMEN AND PELVIS: Unremarkable CT appearance of the unopacified liver, spleen, adrenals,pancreas and gallbladder. Nonobstructive bowel gas pattern. The kidneys aresymmetric in size without evidence of obstruction or nephrolithiasis. Normal appendix. Stable CT appearance of the uterus/adnexal structures.Residual short segmental colonic wall thickening with adjacent linear stranding ofthe pericolonic fat. Suspect resolving subacute diverticulitis changes ofsigmoid colon. IMPRESSION: Suspect resolving subacute diverticulitis changes of the sigmoid colon. Nonobstructive bowel gas pattern. If the patient has noprogressive clinical improvement, consider colonoscopy. - - Brandon Lindsay MD IMG CT ORDERABLES Final Result * (ABNORMAL) POCT URINALYSIS DIPSTICK (03/06/2019 10:57 AM EDT) Only the most recent of2 resultswithin the time period is included. Color, UA yellow CLEAR,YEL LOW,ORANG E,[facility] Clarity, UA clear CLEAR,THERESA UDY SEP OFFICE Glucose, UA - G/DL% SEP OFFICE Bilirubin, UA - POS/NEG SEP OFFICE Ketones, UA trace POS/NEG SEP rn emergency Grav, UA 1.020 1.001 - 1.035 G/DL SEP OFFICE Blood, UA - POS/NEG SEP OFFICE pH, UA 6 5.0 - 8 SEP OFFICE Protein, UA trace POS/NEG SEP OFFICE Urobilinogen, UA - 0.2 - 1.0 MG/DL SEP OFFICE Leukocytes, UA trace POS/NEG SEP OFFICE Nitrite, UA - POS/NEG SEP OFFICE UA Appear POC [id number] SEP OFFICE Lot Number 09/19/2020 SEP OFFICE Expiration Date SEP OFFICE SeriAl # SEP OFFICE Urine 03/06/2019 10:5 7 AM EDT Josiane Ravi MD POINT OF CARE TEST OR DERABLES Final Result SEP OFFICE * URINE CULTURE (NO STAIN) (03/06/2019 10:57 AM EDT) Only the most recent of2 resultswithin the time period is included. Pathologist [facility] Culture Multiple bacterial species isolated from urine consistent with urogenital commensal organisms. 03/08/2019 7:55 AM EDT [facility] Urine URINE SPECIMEN COLLECTION, CLEAN CATCH / Unknown 03/06/2019 10:57 AM EDT 03/06/2019 10:57 AM EDT Josiane Ravi MD MICROBIOLOGY - GENERA L ORDERABLES Final Result [facility] [address] [facility] , [place] [address] * MM MAMMO DIGITAL SCREENING W CAD BILAT (02/11/2019 3:05 PM EDT) Only the most recent of7 resultswithin the time period is included. Anatomical Region Laterality Modality Breast Bilateral Mammography 02/11/2019 3:26 PM EDT Impressions 02/11/2019 3:26 PM EDT Negative ([id number]) ~ RECOMMENDATION: Routine screening mammogram in 1 year. ~ DISCLAIMER * Any patient with a palpable abnormality, unexplained by breast imaging, should be managed on clinical basis by the attending physician. * Breast imaging has a false negative rate of 15%. * The patient was notified by mail of the results of this examination. *The patient's information was entered into a reminder system with a target due date for the next mammogram. The mammogram was reviewed by a Radiologist and CAD. Narrative 02/11/2019 3:26 PM EDT Procedure:MM MAMMO DIGITAL SCREENING W CAD BILAT ~ Reason for exam: screening, asymptomatic. Z12.31-Encounter for screening mammogram for malignant neoplasm of [id number] ~ MM MAMMO DIG SCREEN CAD BILAT Bilateral CC and MLO view(s) were taken. There are scattered fibroglandular densities. Prior study comparison: Compared with prior studies the most recent being 02/02/18, 09/16/16 No mammographic evidence of malignancy. ~ Procedure Note Guillermina Rodriguez MD - 02/11/2019 Procedure:MM MAMMO DIGITAL SCREENING W CAD BILAT ~ Reason for exam: screening, asymptomatic. Z12.31-Encounter for screening mammogram for malignant neoplasm of [id number]-[id number]-52-CM ~ MM MAMMO DIG SCREEN CAD BILAT Bilateral CC and MLO view(s) were taken. There are scattered fibroglandular densities. Prior study comparison: Compared with prior studies the most recentbeing 02/02/18, 09/16/16 No mammographic evidence of malignancy. ~ IMPRESSION: Negative ([id number]) ~ RECOMMENDATION: Routine screening mammogram in 1 year. ~ DISCLAIMER * Any patient with a palpable abnormality, unexplained by breast imaging, should be managed on clinical basis by the attending physician. * Breast imaging has a false negative rate of 15%. * The patient was notified by mail of the results of this examination. *The patient's information was entered into a reminder system with atarget due date for the next mammogram. The mammogram was reviewed by a Radiologist and CAD. Brandon Lindsay MD IMG MAMMOGRAPHY ORDERABLES Final Result * (ABNORMAL) POCT EKG (08/04/2017 5:37 PM EST) 08/04/2017 5:37 PM EST Impressions SEP OFFICE - 08/04/2017 5:37 PM EST ECG sinus rhythm with frequent PAC's - no changes compared from previous ECG ECG read by me and Dr Manzanares Pratima [facility] Final R esult Performing Organization Address [facility] Co de Phone Number SEP OFFICE * H. PYLORI BREATH TEST - REF LAB (01/28/2016 9:50 AM EDT) H. pylori Breath Test Negative Negative [employer] Comment: INTERPRETIVE INFORMATION: H. pylori Breath Test A negative result does not rule out the possibility of H.pylori infection. If clinical signs are suggestive of H. pylori infection, retest with a new specimen or an alternate method. Known causes of false-negative results include: 1. Use of antimicrobials, proton pump inhibitors, and bismuth preparations during the preceding 2 weeks. 2. Administration of the breath test less than 4 weeks after completion of definitive therapy to eradicate H. pylori. 3. Premature or late collection of the post-dose specimen. Known causes of false-positive results include: 1. Patients with achlorhydria. 2. Rinsing the testing solution in the mouth, which can allow contact with urease-positive bacteria. 3. The presence of other gastric spriral organisms such as Helicobacter heilmanii. Breath specimen container (physical object) 01/28/2016 9:50 AM EDT 01/28/2016 12:28 PM EDT Denis Mullins MD CHEMISTRY ORDERABLES F inal Result [facility], [address] [address] * US RIGHT UPPER QUADRANT (10/06/2015 9:46 AM EST) Anatomical Region Laterality Modality Abdomen Ultrasound Impressions 10/08/2015 12:34 PM EST : 1. No gallbladder pathology. 2. Fatty infiltration of the liver. Toyin Melgar MD. Narrative 10/08/2015 12:34 PM EST EXAMINATION: Right Upper Quadrant Ultrasound Dated 10/06/2015. CLINICAL HISTORY: Right upper quadrant abdominal pain. Inflammatory change of the fat between the gallbladder fundus and hepatic flexure of the colon on recent unenhanced CT. COMPARISON: CT abdomen and pelvis without contrast dated 10/02/2015. FINDINGS: The distal pancreatic body and tail could not be visualized due to overlying bowel gas. The visualized pancreas is within normal limits. The liver is increased in echogenicity with poor definition of the portal triads compatible with fatty infiltration. The common duct is normal in diameter measuring 4.5-mm. The gallbladder is unremarkable without gallstones, gallbladder wall thickening, or pericholecystic fluid. Imaging of the right kidney demonstrates no hydronephrosis. us Brandon Lindsay MD [facility] US ORDERABLES Final Result * CT ABDOMEN PELVIS WO CONTRAST (10/02/2015 2:41 PM EST) Anatomical Region Laterality Modality Abdomen, Chest, Pelvis, Hip Comp uted Tomography Impressions 10/05/2015 12:47 PM EST : 1. No urolithiasis or hydronephrosis. 2. Mild inflammatory change of the fat between the gallbladder and hepatic flexure of the colon with trace fluid adjacent to the tip of the liver. These findings are concerning for cholecystitis and recommend right upper quadrant ultrasound for further characterization. Epiploic appendigitis of the hepatic flexure of the colon would be less likely. Toyin Melgar MD. Narrative 10/05/2015 12:47 PM EST EXAMINATION: CT Abdomen and Pelvis Without Contrast Dated 10/02/2015. CLINICAL HISTORY: Right flank pain and right lower quadrant abdominal pain with hematuria. COMPARISON: None. TECHNIQUE: Multiple axial images through the abdomen and pelvis were obtained without the use of intravenous or enteric contrast. This data was used to perform coronal reconstructions. FINDINGS: There are two calcified nodules in the right lower lobe. The visualized left lung base is clear. The heart is mildly enlarged. There are mild to moderate multilevel degenerative changes of the visualized spine, most prominent at L5-S1. Intra-abdominally, evaluation for a subtle lesion in the solid organs is limited due to lack of intravenous contrast. There is a 1-cm low density lesion in the mid pole of the right kidney, likely a cyst. There is no urolithiasis or hydronephrosis. The liver, spleen, pancreas, adrenal glands, and left kidney are within normal limits. There is mild inflammatory change of the fat between the gallbladder fundus and the hepatic flexure of the colon with trace fluid adjacent to the tip of the liver and in the proximal right pericolic gutter. Gallstones are not excluded by CT. The aorta is normal in caliber. The appendix is normal. There is minor diverticulosis of the sigmoid colon without diverticulitis. The small bowel is unremarkable without obstruction or inflammatory change. Within the pelvis, the bladder, uterus, and rectum are unremarkable. Brandon Lindsay MD IMG CT ORDERABLES Final Result * XR ANKLE RIGHT AP LATERAL AND OBLIQUE (02/07/2015 11:04 AM EDT) Anatomical Region Laterality Modality Ankle Radiographic Praveena ging 02/07/2015 10:2 2 AM EDT Impressions 02/07/2015 11:59 AM EDT IMPRESSION: Distal fibula fracture. Narrative 02/07/2015 11:59 AM EDT XR ANKLE RIGHT AP LATERAL AND OBLIQUE EXAM DATE Feb 07, 2015 11:05:21 AM HISTORY: -ANKLE PAIN FINDINGS: There is an oblique, nondisplaced fracture of the distal fibula at and above the level of the ankle mortise. There is overlying lateral soft tissue swelling. There is normal alignment of the ankle mortise. No other fractures are seen. There is a small plantar heel spur Procedure Note Jodie Kerr MD - 02/07/2015 XR ANKLE RIGHT AP LATERAL AND OBLIQUE EXAM DATE Feb 07, 2015 11:05:21 AM HISTORY: -ANKLE PAIN FINDINGS: There is an oblique, nondisplaced fracture of the distal fibula at andabove the level of the ankle mortise. There is overlying lateral soft tissue swelling. There isnormal alignment of the ankle mortise. No other fractures are seen. There is a small plantarheel spur IMPRESSION: Distal fibula fracture. us Rito Garg MD IMG DIAGNOSTIC IMAGING OR DERABLES Final Result * RECORDS SECTION SUPERVISOR PROCEDURE LOG (10/03/2014 1:50 PM EST) 10/03/2014 1:50 PM EST us Koki Rocha VETERINARY X RAY OPERATOR [facility] CARDIAC CATH ORDERABLES F inal Result [facility] [address] [place] [address] * SCANNED RHYTHM STRIPS (10/03/2014 10:40 AM EST) Only the most recent of2 resultswithin the time period is included. Anatomical Region Laterality Modality Other 10/03/2014 10:4 0 AM EST us Unknown Unknown IMG ECG ORDERABLES Final Result * CT ANGIOGRAM CORONARY W CONTRAST (10/03/2014 10:35 AM EST) Anatomical Region Laterality Modality Chest Computed Tomogra phy 10/03/2014 Impressions 10/03/2014 10:55 AM EST IMPRESSION: 1. Abnormal left anterior descending coronary artery with calcific plaque at the origin and approximately 50% luminal narrowing but with potential higher grade stenosis at the first diagonal. Recommend cardiology consultation. Availability of results conveyed to the floor by radiology personnel at time of interpretation. Narrative 10/03/2014 10:[address] ANGIOGRAM CORONARY W CONTRAST Oct 03, 2014 10:35:50 AM HISTORY: Chest pain, palpitations. TECHNICAL: Patient given 75 mL Optiray-350 intravenous contrast material. CCTA technique utilized for coronary artery visualization and assessment. For optimal anatomic visualization, data transferred to independent offline 3-D workstation for visualization. Multiplanar reconstructions and Maximum Intensity 3D projections generated and reviewed. FINDINGS: LAD: The left main coronary artery is patent. The LAD shows calcified exophytic plaque and soft plaque internally with approximately 50% narrowing. At the first diagonal, there is ostial soft plaque which could be significantly stenotic. CIRCUMFLEX: The circumflex is patent and no luminal irregularity identified. RCA: The right coronary artery is dominant and there is no luminal irregularity identified. Procedure Note Diaz Balderas MD - 10/03/2014 CT ANGIOGRAM CORONARY W CONTRAST Oct 03, 2014 10:35:50 AM HISTORY: Chest pain, palpitations. TECHNICAL: Patient given 75 mL Optiray-350 intravenous contrast material.CCTA technique utilized for coronary artery visualization and assessment. For optimal anatomic visualization, data transferred to [employer] 3-D workstation for visualization. Multiplanar reconstructions and Maximum Intensity 3Dprojections generated and reviewed. FINDINGS: LAD: The left main coronary artery is patent. The LAD shows calcifiedexophytic plaque and soft plaque internally with approximately 50% narrowing. At the firstdiagonal, there is ostial soft plaque which could be significantly stenotic. CIRCUMFLEX: The circumflex is patent and no luminal irregularityidentified. RCA: The right coronary artery is dominant and there is no luminalirregularity identified. IMPRESSION: 1. Abnormal left anterior descending coronary artery with calcific plaqueat the origin and approximately 50% luminal narrowing but with potential higher gradestenosis at the first diagonal. Recommend cardiology consultation. Availability of results conveyed to the floor by radiology personnel attime of interpretation. Shilo Tavares MD [facility] CT ORDERABLES Final Result * (ABNORMAL) D-DIMER (10/02/2014 5:08 PM EST) D-Dimer 323(H) <=230 ng/mL D-DU [facility] Comment: This test has been clinically validated by the recording studio set up worker and approved by the FDA for exclusion of pulmonary embolism (PE) or deep vein thrombosis (DVT) in patients with a low clinical risk assessment. The cutoff for exclusion of PE and DVT is < 230 ng/mL D-Dimer Units. Increased levels of D-dimer are associated with PE, DVT, disseminated intravascular coagulation, malignancies, inflammation, sepsis, surgery, trauma, , and advanced patient age. [TERRENCE 2006 11:295(2): 199-207] Blood specimen (specimen) UPPER LIMB STRUCTURE / Unknown 10/02/2014 5:08 PM EST 10/02/2014 5:27 PM EST Shilo Tavares MD HEMATOLOGY ORDERABLES F inal Result Performing Organization Address [facility] Co de Phone Number [facility] [address] [place] [address] * TROPONIN-T (10/02/2014 2:20 PM EST) Only the most recent of3 resultswithin the time period is included. Pathologist [facility] Troponin-T <0.01 <=0.02 ng/mL [facility] Comment: < 0.03 No detectable myocardial injury 0.03 - 0.10 Possible myocardial injury > 0.10 Indicative of myocardial injury Blood specimen (specimen) 10/02/2014 2:20 PM EST 10/02/2014 2:27 PM EST Sandra Kuhn MD CHEMISTRY ORDERABLES Final Result Performing Organization Address [facility] de Phone Number [facility] [address] [place] [address] * (ABNORMAL) DIFFERENTIAL (10/02/2014 7:11 AM EST) Only the most recent of3 resultswithin the time period is included. Neut Percent 88.2 % [facility] Lymph Percent 10.5 % [facility] [place] Percent 1.1 % [facility] Eos Percent 0.0 % [facility] Baso Percent 0.2 % [facility] Neut# 10.6(H) 1.8 - 7.7 x10(3)/mcL [facility] Lymph# 1.3 0.6 - 4.8 x10(3)/mcL [facility] [place]# 0.1 0.0 - 1.3 x10(3)/mcL [facility] Eos# 0.0 0.0 - 0.5 x10(3)/mcL [facility] Baso# 0.0 0.0 - 0.2 x10(3)/mcL [facility] Blood specimen (specimen) 10/02/2014 7:11 AM EST 10/02/2014 7:19 AM EST [facility] HEMATOLOGY ORDERABL ES Final Result [facility] [address] [place] [address] * SCANNED RADIOLOGY REPORT (08/26/2013 11:02 AM EST) Only the most recent of3 resultswithin the time period is included. Anatomical Region Laterality Modality Other us Unknown Unknown IMG DIAGNOSTIC IMAGING ORDERABLE S Final Result * NM MYOCARDIAL PERFUSION SPECT STRESS AND REST (08/26/2013 10:05 AM EST) Only the most recent of2 resultswithin the time period is included. Anatomical Region Laterality Modality Nuclear Medicine 08/26/2013 8:08 AM EST Impressions 08/26/2013 3:05 PM EST SPECT RESULTS Technical Quality: Technically adequate study Raw Data Analysis: No clinically relevant artifact Perfusion: Homogeneous uptake of isotope throughout the left ventricle on both stress and rest images. No evidence of myocardial ischemia or prior myocardial infarction. FUNCTION (calculated via Gated SPECT) Post Stress LV EF:80 % TID: 1.09 EDV: 49 ml (70-100 ml) ESV: 10 ml (30-50 ml) EDVI: 27 ml/m? (30-50 ml/m?) ESVI: 6 ml/m? (15-30 ml/m?) Technical Quality: Gated SPECT appears to be visually overestimated LV Size & Function: Normal left ventricular size and function. LV Regional Function: EF 60 %. No wall motion abnormalities. IMPRESSIONS No evidence of myocardial ischemia or prior myocardial infarction. Normal left ventricular size and function. EF 60 %. No wall motion abnormalities. EKG findings as noted above Narrative Procedure Note Taj Robbins MD - 08/26/2013 IMPRESSION SPECT RESULTS Technical Quality: Technically adequate study Raw Data Analysis: No clinically relevant artifact Perfusion: Homogeneous uptake of isotope throughout the leftventricle on both stress and rest images. No evidence of myocardial ischemia or priormyocardial infarction. FUNCTION (calculated via Gated SPECT) Post Stress LV EF:80 %TID: 1.09 EDV: 49 ml (70-100 ml) ESV: 10 ml(30-50 ml) EDVI: 27 ml/m? (30-50 ml/m?) ESVI: 6ml/m? (15-30 ml/m?) Technical Quality: Gated SPECT appears to be visually overestimated LV Size & Function: Normal left ventricular size and function. LV Regional Function: EF 60 %. No wall motion abnormalities. IMPRESSIONS No evidence of myocardial ischemia or prior myocardial infarction. Normal left ventricular size and function. EF 60 %. No wall motion abnormalities. EKG findings as noted above Result [facility] [place] CARDIAC ORDERABLES Final Result * ST STRESS TEST EXERCISE (08/26/2013 8:51 AM EST) Only the most recent of2 resultswithin the time period is included. Anatomical Region Laterality Modality Cardiac Stress T esting 08/26/2013 8:33 AM EST Result [facility] STRESS ORDERABLES Edited Res ult - Final * WOOD TILE INSTALLATION HELPER CYTOLOGY REPORT (01/30/2013 4:47 AM EDT) Only the most recent of3 resultswithin the time period is included. Vacuum Conditioner Operator Cytology Report PATIENT NAME:BARB HARDEN Vacuum Conditioner Operator Cytology Report Accession Number Collected Date/Time Received Date/Time [id number] 01/30/13 04:47 EDT 01/31/13 04:47 EDT GY Specimen Source Specimen Vag/Cerv/Endocx?: Cervical/Endocervi hia Statement of Adequacy Satisfactory for Evaluation. Transformation Zone Absent. This is not unusual in a post-menopausal woman. Diagnosis NEGATIVE FOR INTRAEPITHELIAL LESION OR MALIGNANCY. Comment The Pap Smear is a screening test that aids in the detection of cervical cancer and cancer precursors. Both false positive and false negative results can occur. The test should be used at regular intervals, and positive results should be confirmed before definitive therapy. Processed using the ThinPrep Beverage Specialist automated cytology screening device (Nuvola). Mid Level Net Developer: DIANA 02/01/2013 Completed by: EMMETT Jeong (Electronically signed by) 02/01/2013 [facility] Laboratory [facility] 01/30/2013 4:47 AM EDT Result [facility] Thad Briceno MD PATHOLOGY ORDERABLES Final Result Performing Organization Address [facility] de Phone Number [facility] [address] [place] [address] * SURGICAL PATHOLOGY REPORT (07/30/2010 10:00 AM EST) Only the most recent of2 resultswithin the time period is included. Surgical Pathology Report PATIENT NAME:BARB HARDEN Surgical Pathology Report Accession Number Collected Date/Time Received Date/Time [id number] 07/30/10 10:00 EST 07/30/10 21:00 EST Diagnosis Random colon biopsies: Unremarkable colonic mucosa, no histopathologic abnormalities. Richmond Mark MD (Electronically signed by) Verified: 08/03/2010 [facility]out Location Comment CPT CODE 10223 Clinical Information Altered bowel habits; abdominal pain, generalized. Diverticulosis of the colon. Gross Description Received in formalin labeled with the patient s name and whole colon are six fragments of ji tissue ranging from 0.2 to 0.3 cm in greatest dimension. Entirely submitted in one cassette./[place] KM /DC Microscopic Description Sections show intact crypt architecture. There is no evidence of inflammatory infiltrate or thickening of the subepithelial collagen layer. [facility] 07/30/2010 10:0 0 AM EST us Ahsan Maguire MD PATHOLOGY ORDERABLES Final Res ult Performing Organization Address [facility] de Phone Number [facility] [address] [place] [address] * SCANNED PATHOLOGY REPORT (04/07/2010 12:00 AM EDT) Narrative 04/07/2010 1:17 AM EDT Ordered by an unspecified provider. Transcriptions Unknown, Unknown - 04/06/2010 9:17 PM EDT us Unknown Unknown PATHOLOGY ORDERABLES Final Resul t * SCANNED LABS (03/30/2010 12:00 AM EDT) Narrative 03/30/2010 5:19 AM EDT Ordered by an unspecified provider. Transcriptions Unknown, Unknown - 03/30/2010 1:19 AM EDT us Unknown Unknown HEMATOLOGY ORDERABLES Final Resu lt * MM DIG SCR KIM PANEL W/CAD (03/29/2010 11:50 AM EDT) Only the most recent of3 resultswithin the time period is included. Anatomical Region Laterality Modality Other 03/29/2010 11:5 0 AM EDT Narrative 03/29/2010 2:29 PM EDT Procedure-MM DIG SCR KIM PANEL W/CAD MM DIGITAL SCR BILAT PANEL Bilateral CC and MLO view(s) were taken. The breast tissue is heterogeneously dense. This may lower the sensitivity of mammography. Compared with prior studies the most recent being 03-27-09 IMPRESSION- No radiographic evidence of malignancy ([id number]) RECOMMENDATION- Routine screening mammogram in 1 year. * The patient with a palpable abnormality, unexplained by breast imaging, should be managed on clinical basis by the attending physician. * Breast imaging has a false negative rate of 15%. * The patient was notified by mail of the results of this examination. Training Coordinatordevonte Joseph Physician- ARPAN SIERRA MD Released Date Time- 03/29/10 1547 Procedure Note Arpan Sierra - 03/29/2010 Procedure-MM DIG SCR KIM PANEL W/CAD MM DIGITAL SCR BILAT PANEL Bilateral CC and MLO view(s) were taken. The breast tissue is heterogeneously dense. This may lower the sensitivity of mammography. Compared with prior studies the most recent being 03-27-09 IMPRESSION- No radiographic evidence of malignancy (PNN-Adgrtryq-0) RECOMMENDATION- Routine screening mammogram in 1 year. * The patient with a palpable abnormality, unexplained by breast imaging, should be managed on clinical basis by the attending physician. * Breast imaging has a false negative rate of 15%. * The patient was notified by mail of the results of this examination. Training Coordinatordevonte Joseph Physician- ARPAN SIERRA MD Released Date Time- 03/29/10 1547 Asher Jacob [facility] Final Result * SEDIMENTATION RATE AUTOMATED (03/29/2010 9:16 AM EDT) Sed Rate 23 0 - 30 mm [facility] Blood specimen (specimen) 03/29/2010 9:16 AM EDT 03/29/2010 8:25 PM EDT Thad Briceno MD HEMATOLOGY ORDERABLES Final Result Performing Organization Address [facility] Co de Phone Number [facility] [address] [place] [address] * SCANNED OR REPORT (03/17/2010 12:00 AM EDT) Narrative 03/17/2010 5:17 PM EDT Ordered by an unspecified provider. Transcriptions Unknown, U - 03/17/2010 12:43 PM EDT U Unknown PROCEDURE/MINOR SURGICAL ORDERAB LES Final Result * (ABNORMAL) BLEEDING TIME (10/12/2009 8:10 AM EST) Bleeding Time 2.0(L) 2.5 - 9.5 minute(s) [facility] Blood specimen (specimen) 10/12/2009 8:10 AM EST 10/12/2009 2:18 PM EST Narrative [facility] - 10/12/2009 2:36 PM EST 2MIN Ahsan Maguire MD HEMATOLOGY ORDERABLES Final Re sult Performing Organization Address [facility]/ZIP Co de Phone Number [facility] [address] [place] [address] * PARTIAL THROMBOPLASTIN TIME (10/12/2009 8:10 AM EST) PTT 29.0 25.3 - 37.8 second(s) [facility] Comment:The therapeutic rang e for heparinized patients monitored by the aPTT is 62-105 seconds. Blood specimen (specimen) 10/12/2009 8:10 AM EST 10/12/2009 2:18 PM EST Ahsan Maguire MD HEMATOLOGY ORDERABLES Final Re sult Performing Organization Address [facility] de Phone Number [facility] [address] [place] [address] * PROTHROMBIN TIME (10/12/2009 8:10 AM EST) PT 11.2 9.8 - 12.8 second(s) [facility] INR 0.99 0.87 - 1.13 [facility] Comment: Level of Therapy Indications Target INR Range Standard Dose Treatment and prophylaxis of venous 2.0 - 3.0 thrombosis, pulmonary embolism. High Dose High risk patients with mechanical 2.5 - 3.5 heart valves. Blood specimen (specimen) 10/12/2009 8:10 AM EST 10/12/2009 2:18 PM EST Ahsan Maguire MD HEMATOLOGY ORDERABLES Final sult Performing Organization Address [facility] de Phone Number [facility] [address] [place] [address] * CT ABD/PELVIS MARKETING FINANCIAL ANALYST (07/09/2009 5:10 PM EST) Anatomical Region Laterality Modality Other 07/09/2009 5:10 PM EST Narrative 07/09/2009 8:07 PM EST Abdomen and pelvis CT with contrast dated 07/09/2009 Comparison- None History- Right upper quadrant pain, elevated liver function tests. Technical factors- Standard abdomen and pelvis CT was performed following administration of oral and intravenous contrast (75 ml of Optiray-320). Findings- Abdomen- There is a small dependent right basilar pleural effusion with mild right lower lobe atelectasis. Calcified granuloma in the right lower lobe also noted from old granulomatous disease. Included lung bases are otherwise clear. There is a small low-density lesion in the right kidney which is too small to definitively characterize but statistically likely a small cyst. No other abnormalities are identified within abdominal solid viscera. No hydronephrosis. No evidence of biliary ductal dilatation. The gallbladder is unremarkable. Opacified hollow viscera are normal in caliber and course. The appendix appears relatively small in size but is unremarkable. No free fluid, free air, or focal inflammatory process identified. Pelvis- The uterus and adnexa are unremarkable. No free fluid is seen. Impression- 1. Small right basilar pleural effusion, of indeterminate etiology. 2. No acute intra-abdominal or intrapelvic abnormality identified. Training Coordinator- SONDRA Joseph Physician- JARON GOMEZ M.D. Released Date Time- 07/09/092103 Procedure Note Jaron Gomez - 11/06/[address] with contrast dated 07/09/2009 Comparison- None History- Right upper quadrant pain, elevated liver function tests. Technical factors- Standard abdomen and pelvis CT was performed following administration of oral and intravenous contrast (75 ml of Optiray-320). Findings- Abdomen- There is a small dependent right basilar pleural effusion with mild right lower lobe atelectasis. Calcified granuloma in the right lower lobe also noted from old granulomatous disease. Included lung bases are otherwise clear. There is a small low-density lesion in the right kidney which is too small to definitively characterize but statistically likely a small cyst. No other abnormalities are identified within abdominal solid viscera. No hydronephrosis. No evidence of biliary ductal dilatation. The gallbladder is unremarkable. Opacified hollow viscera are normal in caliber and course. The appendix appears relatively small in size but is unremarkable. No free fluid, free air, or focal inflammatory process identified. Pelvis- The uterus and adnexa are unremarkable. No free fluid is seen. Impression- 1. Small right basilar pleural effusion, of indeterminate etiology. 2. No acute intra-abdominal or intrapelvic abnormality identified. Training Coordinator- SONDRA SNEED Reading Physician- JARON GOMEZ M.D. Released Date Time- 07/09/092103 us Ahsan Maguire MD [facility] Fi nal Result * US RIGHT UPPER QUADRANT (04/02/2008 9:11 AM EDT) Anatomical Region Laterality Modality Other 04/02/2008 9:11 AM EDT Narrative 04/02/2008 1:37 PM EDT US WT C ORDERS Right upper quadrant ultrasound- 04/02/08. Comparison- None. Indication- 57-year-old female with increased bilirubin. Findings- Liver echogenicity is homogeneous and normal. No intrahepatic or common bile duct dilatation present. Common bile duct measures 3 mm in diameter. Gallbladder is normal. No shadowing stones, echogenic sludge or abnormal wall thickening. Limited views of proximal pancreas are normal. Right kidney not assessed. Impression- 1. Normal gallbladder ultrasound. Training Coordinator- STEPHANIE GOMEZ Reading Physician- MEGHA HAAS MD. Released Date Time- 04/02/08 1611 Procedure Note Megha Haas - 11/05/2009 US WT C ORDERS Right upper quadrant ultrasound- 04/02/08. Comparison- None. Indication- 57-year-old female with increased bilirubin. Findings- Liver echogenicity is homogeneous and normal. No intrahepatic or common bile duct dilatation present. Common bile duct measures 3 mm in diameter. Gallbladder is normal. No shadowing stones, echogenic sludge or abnormal wall thickening. Limited views of proximal pancreas are normal. Right kidney not assessed. Impression- 1. Normal gallbladder ultrasound. Training Coordinator- STEPHANIE GOMEZ Reading Physician- MEGHA HAAS MD. Released Date Time- 04/02/08 1611 us Severino Mendez MD [facility] RAD [facility]ISTORICAL F inal Result * NM NUCLEAR CARDIAC PROCEDURE MARKETING FINANCIAL ANALYST (03/25/2008 10:00 AM EDT) Only the most recent of2 resultswithin the time period is included. Anatomical Region Laterality Modality Other 03/25/2008 10:0 0 AM EDT Narrative 03/26/2008 4:20 AM EDT Nuclear medicine stress test, gated SPECT, wall motion analysis and left ventricular ejection fraction calculation done on 03/25/2008 at 1040 hours. Dose- The patient was administered 30.8 mCi Tc Myoview for the stress portion of the exam. The patient was stressed according to the normal protocol. Maximum heart rate is 128 beats per minute. This is not adequate for the patient. The patient is on beta blockers. The patient did experience ECG changes of ischemia during the course of the exam. There is normal radiopharmaceutical accumulation within the myocardium. There is no evidence for fixed nor reversible defect. Wall motion is normal. EDV is 66 mL. ESV is 21 mL. LVEF of 68%. Impression- No evidence for inducible ischemia. This is submaximal exercise testing. Caution is advised in interpreting the results. The normal range for left ventricular ejection fraction determined by MUGA scan is 50-70%. The normal range for left ventricular ejection fraction determined by SPECT gated myocardial perfusion scan is 45-75%. Training Coordinator- MEGHA Joseph Radiologist- FAN WRIGHT M.D. Released Date Time- 03/26/08 0542 Procedure Note Thad Wright - 11/05/2009 Nuclear medicine stress test, gated SPECT, wall motion analysis and left ventricular ejection fraction calculation done on 03/25/2008 at 1040 hours. Dose- The patient was administered 30.8 mCi Tc Myoview for the stress portion of the exam. The patient was stressed according to the normal protocol. Maximum heart rate is 128 beats per minute. This is not adequate for the patient. The patient is on beta blockers. The patient did experience ECG changes of ischemia during the course of the exam. There is normal radiopharmaceutical accumulation within the myocardium. There is no evidence for fixed nor reversible defect. Wall motion is normal. EDV is 66 mL. ESV is 21 mL. LVEF of 68%. Impression- No evidence for inducible ischemia. This is submaximal exercise testing. Caution is advised in interpreting the results. The normal range for left ventricular ejection fraction determined by MUGA scan is 50-70%. The normal range for left ventricular ejection fraction determined by SPECT gated myocardial perfusion scan is 45-75%. Training Coordinator- MEGHA CAUSEY Reading Radiologist- FAN WRIGHT M.D. Released Date Time- 03/26/08 [address] [facility] Final Result * ST STRESS TEST REGULAR (03/25/2008 9:31 AM EDT) Only the most recent of2 resultswithin the time period is included. Anatomical Region Laterality Modality Other 03/25/2008 9:31 AM EDT Narrative 03/25/2008 3:48 PM EDT TARGET HEART RATE- @75% 85% 138 100% 162 TARGET REACHED- NO BASELINE HR B/P SYMPTOMS/COMMENTS/LEVEL OF PAIN LYING 57 137/87 STANDING 63 131/83 POST HV STAGE MINUTES HR B/P SYMPTOMS/COMMENTS 1.7/10% 3-00 54 143/84 NO COMPLAINTS 2.5/12% 6-00 113 159/84 NO COMPLAINTS 3.4/14% 8-39 128 177/103 ST CHANGES REASON FOR STOPPING- ST CHANGES TOTAL TIME- 8-39 METS- 10.1 HR B/P SYMPTOMS/COMMENTS/LEVEL OF PAIN RECOVERY 2 MIN 72 171/93 NO COMPLAINTS 4 MIN 70 139/86 NO COMPLAINTS 6 MIN 68 130/80 NO COMPLAINTS 7-36 MIN 70 125/80 NO COMPLAINTS INTERPRETATION-CONCLUSION - SUBMAXIMAL EXERCISE 79% PT. ON BETABLOCKER. POSITIVE ECG RESPONSE. ST CHANGES DURING EXERCISE. 1MM FLAT ST DEPRESSION. NUCLEAR REPORT TO FOLLOW. Training Coordinator- SILVINA JOHANSEN Reading Radiologist- TAJ MONTANEZ Released Date Time- 03/25/08 1553 Procedure Note Taj Montanez - 11/05/2009 TARGET HEART RATE- @75% 85% 138 100% 162 TARGET REACHED- NO BASELINE HR B/P SYMPTOMS/COMMENTS/LEVEL OF PAIN LYING 57 137/87 STANDING 63 131/83 POST HV STAGE MINUTES HR B/P SYMPTOMS/COMMENTS 1.7/10% 3-00 54 143/84 NO COMPLAINTS 2.5/12% 6-00 113 159/84 NO COMPLAINTS 3.4/14% 8-39 128 177/103 ST CHANGES REASON FOR STOPPING- ST CHANGES TOTAL TIME- 8-39 METS- 10.1 HR B/P SYMPTOMS/COMMENTS/LEVEL OF PAIN RECOVERY 2 MIN 72 171/93 NO COMPLAINTS 4 MIN 70 139/86 NO COMPLAINTS 6 MIN 68 130/80 NO COMPLAINTS 7-36 MIN 70 125/80 NO COMPLAINTS INTERPRETATION-CONCLUSION - SUBMAXIMAL EXERCISE 79% PT. ON BETABLOCKER. POSITIVE ECG RESPONSE. ST CHANGES DURING EXERCISE. 1MM FLAT ST DEPRESSION. NUCLEAR REPORT TO FOLLOW. Training Coordinator- SILVINA JOHANSEN Reading Radiologist- TAJ MONTANEZ Released Date Time- 03/25/08 1553 us Ayo Blanchard MD [facility] Final Result * MM MAMMO SCREEN W/CAD II PANEL (03/06/2007 3:36 PM EDT) Only the most recent of2 resultswithin the time period is included. Anatomical Region Laterality Modality Other 03/06/2007 3:36 PM EDT Narrative 03/07/2007 2:42 PM EDT Procedure-WW MAMMO SCREEN W/CAD II PANEL Reason for exam- screening. Screening Mammogram With CAD Bilateral CC and MLO view(s) were taken. Technologist- chip toure, test center manager Prior study comparison- February 13, 2006, bilateral screening mammogram with CAD. September 03, 2002, bilateral screening mammogram. The breast tissue is heterogeneously dense. This may lower the sensitivity of mammography. No significant changes when compared with prior studies. IMPRESSION- No radiographic evidence of malignancy ([id number]) RECOMMENDATION- Routine screening mammogram in 1 year. * The patient with a palpable abnormality, unexplained by breast imaging, should be managed on clinical basis by the attending physician. * Breast imaging has a false negative rate of 15%. * The patient was notified by mail of the results of this examination. The mammogram was reviewed by a Radiologist and CAD. Training Coordinator- EMILY Joseph Radiologist- CARLOS MCKEON MD Released Date Time- 03/07/07 1515 Procedure Note Carlos Mckeon - 11/04/2009 Procedure-WW MAMMO SCREEN W/CAD II PANEL Reason for exam- screening. Screening Mammogram With CAD Bilateral CC and MLO view(s) were taken. Technologist- chip toure test center manager Prior study comparison- February 13, 2006, bilateral screening mammogram with CAD. September 03, 2002, bilateral screening mammogram. The breast tissue is heterogeneously dense. This may lower the sensitivity of mammography. No significant changes when compared with prior studies. IMPRESSION- No radiographic evidence of malignancy ([id number]) RECOMMENDATION- Routine screening mammogram in 1 year. * The patient with a palpable abnormality, unexplained by breast imaging, should be managed on clinical basis by the attending physician. * Breast imaging has a false negative rate of 15%. * The patient was notified by mail of the results of this examination. The mammogram was reviewed by a Radiologist and CAD. Training Coordinator- EMILY ROBBINS Reading Radiologist- CARLOS MCKEON MD Released Date Time- 03/07/07 1515 Asher Jacob MD [facility] Final Result * EK EKG REG (10/31/2006 7:17 AM EST) Only the most recent of2 resultswithin the time period is included. Anatomical Region Laterality Modality Other 10/31/2006 7:17 AM EST Narrative 10/31/2006 2:57 PM EST Sinus bradycardia Inferior ST-T changes are nonspecific Borderline ECG Training Coordinator- MEGHAN SCHMIDT M.D. Reading Radiologist- MEGHAN SCHMIDT M.D. Released Date Time- 10/31/06 1457 Procedure Note Meghan Schmidt - 11/04/[address]-T changes are nonspecific Borderline ECG Training CoordinatorSherlyn SCHMIDT M.D. Reading Radiologist- MEGHAN SCHMIDT M.D. Released Date Time- 10/31/06 1457 Naida Estrada MD [facility] CARD HISTORICAL F inal Result * XR CHEST PORTABLE (10/30/2006 9:29 AM EST) Anatomical Region Laterality Modality Other 10/30/2006 9:29 AM EST Narrative 10/30/2006 10:11 AM EST ER 10 Single view chest, 10/30/06 History- High blood pressure. Impression- Normal. Training Coordinatordevonte Joseph Radiologist- AGUILA BLACKMON MD Released Date Time- 10/30/06 163 Procedure Note Aguila Blackmon - 11/04/2009 ER 10 Single view chest, 10/30/06 History- High blood pressure. Impression- Normal. Training Coordinatordevonte Joseph RadiologistSherlyn BLACKMON MD Released Date Time- 10/30/06 163 Forrest Sorensen MD [facility] Rae l Result * XR CHEST PA & LAT (12/03/2005 12:00 AM EDT) Anatomical Region Laterality Modality Other 12/03/2005 12/03/2005 Narrative 12/03/2005 12:00 AM EDT VERIFIED [facility] Reason: BRONCHITIS CXR Dict.Staff: STANLEY THOMSON Verified By: STANLEY THOMSON Funmilayo: 12/03/05 3:30 pm Exams: DIAG-CHEST PA & LATERAL 12/03/2005. CHEST, TWO VIEWS: HISTORY: Cough. The heart size is normal. The pulmonary vascular pattern is normal. No infiltrate or pleural effusion is seen. There are calcifications in the lungs and mediastinum, consistent with old granulomatous disease. There is slight scoliosis in the mid thoracic spine, convex to the right. There is no significant interval change from the film of 06/20/2003. CONCLUSION: No acute abnormality seen. [place] end of result Procedure Note Unknown, U - 12/10/2009 VERIFIED [facility] Reason: BRONCHITIS CXR Dict.Staff: STANLEY THOMSON Verified By: STANLEY THOMSON Funmilayo: 12/03/05 3:30 pm Exams: DIAG-CHEST PA & LATERAL 12/03/2005. CHEST, TWO VIEWS: HISTORY: Cough. The heart size is normal. The pulmonary vascular pattern is normal. No infiltrate or pleural effusion is seen. There are calcifications in the lungs and mediastinum, consistent with old granulomatous disease. There is slight scoliosis in the mid thoracic spine, convex to the right. There is no significant interval change from the film of 06/20/2003. CONCLUSION: No acute abnormality seen. [place] end of result us U Unknown IMG [facility] RAD HISTORICAL Final Result Visit Diagnoses Diagnosis Start Date Other screening mammogram 03/29/2011 Atypical chest pain Other chest pain 04/08/2011 Atypical chest pain Other chest pain 04/08/2011 Routine gynecological examination 01/30/2013 Other screening mammogram 01/30/2013 Chest pain Chest pain, unspecified 08/12/2013 WILSON (dyspnea on exertion) Other dyspnea and respiratory abnormality 08/12/2013 HTN (hypertension) Unspecified essential hypertension 08/12/2013 Hyperlipidemia Other and unspecified hyperlipidemia 08/12/2013 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 08/12/2013 Chest pain, unspecified 08/22/2013 Unspecified essential hypertension 08/22/2013 Other and unspecified hyperlipidemia 08/22/2013 Other specified inflammatory polyarthropathies(714.89) Other specified inflammatory polyarthropathies 08/22/2013 Chest pain Chest pain, unspecified 08/22/2013 WILSON (dyspnea on exertion) Other dyspnea and respiratory abnormality 08/22/2013 HTN (hypertension) Unspecified essential hypertension 08/22/2013 Hyperlipidemia Other and unspecified hyperlipidemia 08/22/2013 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 08/22/2013 Chest pain, unspecified 08/26/2013 Unspecified essential hypertension 08/26/2013 Other and unspecified hyperlipidemia 08/26/2013 Chest pain, unspecified 08/26/2013 Unspecified essential hypertension 08/26/2013 Other and unspecified hyperlipidemia 08/26/2013 Chest pain Chest pain, unspecified 10/18/2013 Diastolic dysfunction Heart disease, unspecified 10/18/2013 HTN (hypertension) Unspecified essential hypertension 10/18/2013 Dyslipidemia Other and unspecified hyperlipidemia 10/18/2013 Other screening mammogram 05/23/2014 Chest pain Chest pain, unspecified 10/02/2014 Palpitations 10/02/2014 Chest pain Chest pain, unspecified 10/24/2014 Palpitations 10/24/2014 Unspecified essential hypertension 10/24/2014 Hyperlipidemia Other and unspecified hyperlipidemia 10/24/2014 Palpitations 10/27/2014 Unspecified essential hypertension 10/27/2014 Essential hypertension Unspecified essential hypertension 01/23/2015 Palpitations 01/23/2015 Fracture of distal fibula Unspecified closed fracture of ankle 02/07/2015 Screening Screening for unspecified condition 07/02/2015 Bacterial infection due to Helicobacter pylori Helicobacter pylori (H. pylori) 01/28/2016 Encounter for well woman exam with routine gynecological exam 08/12/2016 Encounter for screening mammogram for breast cancer 08/12/2016 Menopause Symptomatic menopausal or female climacteric states 08/12/2016 Disorder of cartilage Disorder of bone and cartilage, unspecified 08/12/2016 Visit for screening mammogram Other screening mammogram 09/16/2016 Elevated blood pressure reading Elevated blood pressure reading without diagnosis of hypertension 08/04/2017 Frequency of urination Urinary frequency 09/18/2017 Hematuria, unspecified type 09/18/2017 Cystocele, midline 09/18/2017 Urge incontinence 09/18/2017 Encounter for screening mammogram for malignant neoplasm of breast Other screening mammogram 02/02/2018 Encounter for screening mammogram for malignant neoplasm of breast Other screening mammogram 02/11/2019 LLQ abdominal pain Abdominal pain, left lower quadrant 03/06/2019 LLQ pain Abdominal pain, left lower quadrant 03/06/2019 Possible urinary tract infection 03/06/2019 LLQ abdominal pain Abdominal pain, left lower quadrant 03/06/2019 LLQ pain Abdominal pain, left lower quadrant 03/06/2019 Perforated diverticulum of large intestine Diverticulosis of colon (without mention of hemorrhage) 03/06/2019 Diverticulitis of large intestine with perforation, unspecified bleeding status 03/06/2019 Diverticular disease of intestine with perforation and abscess 03/22/2019 Diverticula of colon Diverticulosis of colon (without mention of hemorrhage) 05/27/2019 Abdominal pain, left lower quadrant 03/06/2020 Diverticulosis of large intestine without diverticulitis Diverticulosis of colon (without mention of hemorrhage) 03/06/2020 Encounter for screening mammogram for malignant neoplasm of breast Other screening mammogram 06/17/2020 Diverticulosis of large intestine without diverticulitis Diverticulosis of colon (without mention of hemorrhage) 11/16/2020 Diverticulitis of large intestine, unspecified bleeding status, unspecified complication status 11/16/2020 Colonic diverticular abscess 11/16/2020 Paresthesia of left upper and lower extremity 12/04/2020 Diverticulitis of large intestine without bleeding, unspecified complication status 12/04/2020 Diverticulitis of large intestine without bleeding, unspecified complication status 12/07/2020 Paresthesia of left upper and lower extremity 12/07/2020 Pleuritic chest pain Painful respiration 12/22/2020 Preop testing Preoperative examination, unspecified 12/31/2020 Diverticulitis Diverticulitis of colon (without mention of hemorrhage) 12/31/2020 Pre-op testing Preoperative examination, unspecified 01/05/2021 Encounter for laboratory testing for COVID-19 virus 01/05/2021 Paresthesia of left upper and lower extremity 01/09/2021 Paresthesia of left upper and lower extremity 01/09/2021 Postop check Follow-up examination, following unspecified surgery 01/29/2021 Postop check Follow-up examination, following unspecified surgery 03/18/2021 Atrial fibrillation with rapid ventricular response (HCC) Atrial fibrillation 08/24/2021 Pericardial effusion Unspecified disease of pericardium 09/09/2021 Essential hypertension Unspecified essential hypertension 09/09/2021 Atrial flutter, unspecified type (HCC) 09/09/2021 Rheumatoid arthritis, involving unspecified site, 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 rheumatoid factor present (HCC) 09/09/2021 Pericardial effusion Unspecified disease of pericardium 10/26/2021 LLQ pain Abdominal pain, left lower quadrant 11/11/2021 LLQ pain Abdominal pain, left lower quadrant 11/17/2021 Encounter for screening mammogram for malignant neoplasm of breast Other screening mammogram 12/07/2021 Atrial flutter, unspecified type (HCC) 03/25/2022 Essential hypertension Unspecified essential hypertension 03/25/2022 Low back pain, unspecified back pain laterality, unspecified chronicity, 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 sciatica present 09/28/2022 Arthralgia of both hands 09/28/2022 Hip pain, bilateral Pain in joint, pelvic region and thigh 09/28/2022 Bilateral low back pain, unspecified chronicity, 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 sciatica present 09/28/2022 Arthralgia of both knees 09/28/2022 Atrial flutter, unspecified type (HCC) 09/30/2022 Essential hypertension Unspecified essential hypertension 09/30/2022 Pericardial effusion Unspecified disease of pericardium 09/30/2022 Osteoporosis, post-menopausal Senile osteoporosis 10/05/2022 PA (psoriatic arthritis) (HCC) Psoriatic arthropathy 10/19/2022 Chronic gout without tophus, unspecified cause, unspecified site 10/19/2022 Osteoarthrosis, generalized, involving multiple sites Generalized osteoarthrosis, involving multiple sites 10/19/2022 Encounter for long-term (current) use of medications Encounter for long-term (current) use of other medications 10/19/2022 Menopausal and postmenopausal disorder Unspecified menopausal and postmenopausal disorder 10/19/2022 PA (psoriatic arthritis) (HCC) Psoriatic arthropathy 11/16/2022 Chronic gout without tophus, unspecified cause, unspecified site 11/16/2022 Menopausal and postmenopausal disorder Unspecified menopausal and postmenopausal disorder 11/16/2022 Osteoarthrosis, generalized, involving multiple sites Generalized osteoarthrosis, involving multiple sites 11/16/2022 Encounter for long-term (current) use of medications Encounter for long-term (current) use of other medications 11/16/2022 Pain and swelling of right knee 11/16/2022 senior care current use of systemic steroids Encounter for long-term (current) use of steroids 11/16/2022 Pain and swelling of right knee 12/13/2022 Chronic gout without tophus, unspecified cause, unspecified site 01/16/2023 Osteoarthrosis, generalized, involving multiple sites Generalized osteoarthrosis, involving multiple sites 01/16/2023 PA (psoriatic arthritis) (HCC) Psoriatic arthropathy 01/16/2023 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 current use of systemic steroids Encounter for long-term (current) use of steroids 01/16/2023 Menopausal and postmenopausal disorder Unspecified menopausal and postmenopausal disorder 01/16/2023 Encounter for long-term (current) use of medications Encounter for long-term (current) use of other medications 01/16/2023 Rheumatoid arthritis, involving unspecified site, 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 rheumatoid factor present ([facility]) 01/25/2023 Encounter for long-term (current) use of medications Encounter for long-term (current) use of other medications 01/25/2023 Weakness Other malaise and fatigue 02/01/2023 Weakness Other malaise and fatigue 02/01/2023 Essential hypertension Unspecified essential hypertension 04/07/2023 Atrial flutter, unspecified type (HCC) 04/07/2023 Pericardial effusion Unspecified disease of pericardium 04/07/2023 Chronic gout without tophus, unspecified cause, unspecified site 04/17/2023 Osteoarthrosis, generalized, involving multiple sites Generalized osteoarthrosis, involving multiple sites 04/17/2023 PA (psoriatic arthritis) (HCC) Psoriatic arthropathy 04/17/2023 Menopausal and postmenopausal disorder Unspecified menopausal and postmenopausal disorder 04/17/2023 senior care current use of systemic steroids Encounter for long-term (current) use of steroids 04/17/2023 Encounter for long-term (current) use of medications Encounter for long-term (current) use of other medications 04/17/2023 Encounter for screening mammogram for malignant neoplasm of breast Other screening mammogram 05/29/2023 Chronic gout without tophus, unspecified cause, unspecified site 08/07/2023 PA (psoriatic arthritis) (HCC) Psoriatic arthropathy 08/07/2023 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 current use of systemic steroids Encounter for long-term (current) use of steroids 08/07/2023 Encounter for long-term (current) use of medications Encounter for long-term (current) use of other medications 08/07/2023 PA (psoriatic arthritis) (HCC) Psoriatic arthropathy 09/20/2023 Chronic gout without tophus, unspecified cause, unspecified site 09/20/2023 Osteoarthrosis, generalized, involving multiple sites Generalized osteoarthrosis, involving multiple sites 09/20/2023 Rheumatoid arthritis, involving unspecified site, 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 rheumatoid factor present ([facility]) 09/20/2023 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 current use of systemic steroids Encounter for long-term (current) use of steroids 09/20/2023 Encounter for long-term (current) use of medications Encounter for long-term (current) use of other medications 09/20/2023 Psoriasis Other psoriasis 09/20/2023 Essential hypertension Unspecified essential hypertension 10/11/2023 Atrial flutter, unspecified type ([facility]) 10/11/2023 Chronic gout without tophus, unspecified cause, unspecified site 11/03/2023 PA (psoriatic arthritis) (HCC) Psoriatic arthropathy 12/20/2023 Osteoarthrosis, generalized, involving multiple sites Generalized osteoarthrosis, involving multiple sites 12/20/2023 Menopausal and postmenopausal disorder Unspecified menopausal and postmenopausal disorder 12/20/2023 Pain and swelling of right knee 12/20/2023 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 current use of systemic steroids Encounter for long-term (current) use of steroids 12/20/2023 Encounter for long-term (current) use of medications Encounter for long-term (current) use of other medications 12/20/2023 Type 2 diabetes mellitus with other specified complication, 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 ([facility]) 12/20/2023 Chronic gout without tophus, unspecified cause, unspecified site 12/20/2023 Chronic left shoulder pain Pain in joint, shoulder region 12/20/2023 Pain and swelling of left knee 12/20/2023 Chronic gout without tophus, unspecified cause, unspecified site 01/04/2024 Chronic gout without tophus, unspecified cause, unspecified site 02/05/2024 Chronic gout without tophus, unspecified cause, unspecified site 03/13/2024 PA (psoriatic arthritis) (HCC) Psoriatic arthropathy 03/13/2024 Osteoarthrosis, generalized, involving multiple sites Generalized osteoarthrosis, involving multiple sites 03/13/2024 Menopausal and postmenopausal disorder Unspecified menopausal and postmenopausal disorder 03/13/2024 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 current use of systemic steroids Encounter for long-term (current) use of steroids 03/13/2024 Encounter for long-term (current) use of medications Encounter for long-term (current) use of other medications 03/13/2024 Chronic gout without tophus, unspecified cause, unspecified site 04/22/2024 Osteoarthrosis, generalized, involving multiple sites Generalized osteoarthrosis, involving multiple sites 04/22/2024 PA (psoriatic arthritis) (HCC) Psoriatic arthropathy 04/22/2024 Menopausal and postmenopausal disorder Unspecified menopausal and postmenopausal disorder 04/22/2024 Psoriasis Other psoriasis 04/22/2024 senior care current use of systemic steroids Encounter for long-term (current) use of steroids 04/22/2024 Encounter for long-term (current) use of medications Encounter for long-term (current) use of other medications 04/22/2024 Type 2 diabetes mellitus with other specified complication, 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 intermediate insulin use ([facility]) 04/22/2024 Unspecified essential hypertension 05/07/2024 Atrial fibrillation with rapid ventricular response ([facility]) Atrial fibrillation 05/07/2024 Rheumatoid arthritis, involving unspecified site, 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 rheumatoid factor present ([facility]) 05/07/2024 Hyperlipidemia, unspecified hyperlipidemia type 05/07/2024 Osteoarthrosis, generalized, involving multiple sites Generalized osteoarthrosis, involving multiple sites 08/14/2024 Psoriasis Other psoriasis 09/26/2024 PA (psoriatic arthritis) (HCC) Psoriatic arthropathy 09/26/2024 Chronic gout without tophus, unspecified cause, unspecified site 09/26/2024 Osteoarthrosis, generalized, involving multiple sites Generalized osteoarthrosis, involving multiple sites 09/26/2024 senior care current use of systemic steroids Encounter for long-term (current) use of steroids 09/26/2024 Encounter for long-term (current) use of medications Encounter for long-term (current) use of other medications 09/26/2024 LLQ pain Abdominal pain, left lower quadrant 10/25/2024 LLQ pain Abdominal pain, left lower quadrant 10/26/2024 Chronic gout without tophus, unspecified cause, unspecified site 12/24/2024 PA (psoriatic arthritis) (HCC) Psoriatic arthropathy 12/24/2024 Psoriasis Other psoriasis 12/24/2024 Osteoarthrosis, generalized, involving multiple sites Generalized osteoarthrosis, involving multiple sites 12/24/2024 senior care current use of systemic steroids Encounter for long-term (current) use of steroids 12/24/2024 Encounter for long-term (current) use of medications Encounter for long-term (current) use of other medications 12/24/2024 Type 2 diabetes mellitus with other specified complication, 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 intermediate insulin use (HCC) 12/24/2024 Chronic pain of left ankle 12/24/2024 Pain and swelling of left knee 12/24/2024 Other screening mammogram 01/08/2025 PA (psoriatic arthritis) (HCC) Psoriatic arthropathy 04/21/2025 Psoriasis Other psoriasis 04/21/2025 Osteoarthrosis, generalized, involving multiple sites Generalized osteoarthrosis, involving multiple sites 04/21/2025 Chronic gout without tophus, unspecified cause, unspecified site 04/21/2025 senior care current use of systemic steroids Encounter for long-term (current) use of steroids 04/21/2025 Encounter for long-term (current) use of medications Encounter for long-term (current) use of other medications 04/21/2025 Type 2 diabetes mellitus with other specified complication, 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 (HCC) 04/21/2025 Chronic gout without tophus, unspecified cause, unspecified site 05/20/2025 Psoriasis Other psoriasis 05/20/2025 PA (psoriatic arthritis) (HCC) Psoriatic arthropathy 05/20/2025 Osteoarthrosis, generalized, involving multiple sites Generalized osteoarthrosis, involving multiple sites 05/20/2025 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 current use of systemic steroids Encounter for long-term (current) use of steroids 05/20/2025 Encounter for long-term (current) use of medications Encounter for long-term (current) use of other medications 05/20/2025 Type 2 diabetes mellitus with other specified complication, 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 intermediate insulin use (HCC) 05/20/2025 Pain and swelling of right knee 05/20/2025 Osteoarthrosis, generalized, involving multiple sites Generalized osteoarthrosis, involving multiple sites 05/21/2025 Rheumatoid arthritis, involving unspecified site, 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 rheumatoid factor present (HCC) 05/21/2025 Chest pain, unspecified 10/02/2014 Unspecified essential hypertension 10/02/2014 Other and unspecified hyperlipidemia 10/02/2014 RA (rheumatoid arthritis) (HCC) Rheumatoid arthritis 10/02/2014 Palpitations 10/02/2014 Tachycardia Tachycardia, unspecified 10/02/2014 Chest pain Chest pain, unspecified 10/02/2014 Unspecified essential hypertension 03/06/2019 Perforation of sigmoid colon due to diverticulitis 03/06/2019 Colonic diverticular abscess 11/16/2020 Unspecified essential hypertension 11/16/2020 Hyperlipidemia Other and unspecified hyperlipidemia 11/16/2020 Pleuritic chest pain Painful respiration 12/22/2020 Hyperlipidemia Other and unspecified hyperlipidemia 12/22/2020 RA (rheumatoid arthritis) (HCC) Rheumatoid arthritis 12/22/2020 Unspecified essential hypertension 12/22/2020 Paresthesia of left upper and lower extremity 01/09/2021 Atrial fibrillation with rapid ventricular response ([facility]) Atrial fibrillation 08/24/2021 Hyperlipidemia Other and unspecified hyperlipidemia 08/24/2021 Unspecified essential hypertension 08/24/2021 Care Teams Plan Checker Relationship Specialty Start Date End Date Brandon Lindsay MD PCP - General 03/14/11 Jenn Mancilla DO Physician Internal Medicine-Cardiovascular Disease 09/26/13 Emily Le APRN Nurse Practitioner Nurse Practitioner 10/23/14 Mirlande Murphy MD [address] [place] [address] Internal Medicine-Rheumatology 11/10/22
--- OUTSIDE RECORDS SUMMARY | 2025-06-10 11:18 | XMS_ITS | Encounter Summary ---
Author Organization [place] [address] Care Team Providers Care Tram Inspector Name Role Phone Brandon Lindsay MD Primary Care Provider [phone] Jenn Mancilla DO Unavailable Emily Le APRN Unavailable [phone] Mirlande Murphy MD Unavailable Reason for Visit * Reason Onset Date Comments Reschedule 04/11/2025 Encounter Details Date Type Department Care Team (Late st Contact Info) Description 04/11/2025 Telephone [facility] [address] [place] [address] Tal Truong MD [address] [place] [address] Reschedule Social History Tobacco Use Types Packs/Day Years [...] Shanelle Samson RN documented in this encounter Miscellaneous Notes * Telephone Encounter - Nat Allan MA - 04/11/2025 9:36 AM EDT Called and swp to let pt know her 05/07/2025 apt has been canceled due to change in providers schedule and asked that she calls back in May/Jun to reschedule as our schedule is not open at this time. Pt voiced understanding. documented in this encounter Plan of Treatment Upcoming Encounters Date Type Department Care Team (Late st Contact Info) Description 06/17/2025 10:00 AM EDT Office Visit [facility] [address] [place] [address] Mirlande Murphy MD [address] [place] [address] 08/25/2025 10:00 AM EST [facility] [address] [place] [address] Mirlande Murphy MD [address] [facility] [place] [address] documented as of this encounter Visit Diagnoses Not on filedocumented in this encounter Additional Health Concerns Assessment Noted Time A fall risk assessment has been complete d for the patient 12/04/2020 10:55 AM EDT documented as of this encounter Care Teams Tram Inspector Relationship Specialty Start Date End Date Brandon Lindsay MD PCP - General 03/14/11 Jenn Mancilla DO Physician Internal Medicine-Cardiovascular Disease 09/26/13 Emily Le APRN Nurse Practitioner Nurse Practitioner 10/23/14 Mirlande Murphy MD [address] [facility] [place] [address] Internal Medicine-Rheumatology 11/10/22 documented as of this encounter
--- OUTSIDE RECORDS SUMMARY | 2025-06-10 11:18 | XMS_ITS | Encounter Summary ---
Author Organization [facility] Address [address] [place] [address] Care Team Providers Care Health Sanitarian Name Role Phone Brandon Lindsay MD Primary Care Provider Jenn Mancilla DO Unavailable Emily Le APRN Unavailable [phone] Mirlande Murphy MD Unavailable Encounter Details Date Type Department Care Team (Latest Contact Info) Description 04/22/2025 Results Follow-Up [facility] [address] [place] [address] Mirlande Murphy MD [address] [place] [address] CBC WITH AUTO DIFF-QUEST, CREATININE-QUEST, HEPATIC FUNCTION PANEL-QUEST, Additional followed-up results: 4 Social History Tobacco Use Types Packs/Day Years [...] Progress Notes * Mirlande Murphy MD - 04/22/2025 3:32 PM EDT reviewed labs done on 04/21/25 - HbA1c 6 - normal CBC, creat, LFTs, sed, C-RP - uric acid 5 documented in this encounter Plan of Treatment Upcoming Encounters Date Type Department Care Team (Late st Contact Info) Description 06/17/2025 10:00 AM EDT Office Visit [facility] [address] [place] [address] Mirlande Murphy MD [address] [place] [address] 08/25/2025 10:00 AM EST Office Visit [facility] [address] [place] [address] Mirlande Murphy MD [address] [facility] [place] [address] documented as of this encounter Visit Diagnoses Not on filedocumented in this encounter Additional Health Concerns Assessment Noted Time A fall risk assessment has been complete d for the patient 12/04/2020 10:55 AM EDT documented as of this encounter Care Teams Health Sanitarian Relationship Specialty Start Date End Date Brandon Lindsay MD PCP - General 03/14/11 Jenn Mancilla DO Physician Internal Medicine-Cardiovascular Disease 09/26/13 Emily Le APRN Nurse Practitioner Nurse Practitioner 10/23/14 Mirlande Murphy MD [address] [facility] [place] [address] Internal Medicine-Rheumatology 11/10/22 documented as of this encounter
--- OUTSIDE RECORDS SUMMARY | 2025-06-10 11:18 | XMS_ITS | Clinical Summary ---
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 Active celecoxib (CELEBREX) 200 mg Capsule Take 200 mg by mouth 2 times daily. Active allopurinoL (ZYLOPRIM) 300 mg tablet Take 300 mg by mouth daily. Active hydrALAZINE (APRESOLINE) 50 mg tablet Take 50 mg by mouth every 8 hours. Active metoprolol (TOPROL) 100 mg XL tablet Take 100 mg by mouth daily. Active famotidine (PEPCID) 20 mg tablet Take 20 mg by mouth 2 times daily. Active ergocalciferol (ERGOCALCIFEROL) 1,250 mcg (50,000 unit) Capsule Take 50,000 Units by mouth every 7 days (once weekly). Active hydrocodone/acet am/diet.sup.11 (HYDROCODONE-LUIS TAMINOPH-SUPP11 PO) Take by mouth as needed. Active olmesartan (BENICAR) 5 mg Tablet Take 5 mg by mouth. Active rivaroxaban (XARELTO) 20 mg Tablet Take 20 mg by mouth. 03/21/2022 Active mupirocin (BACTROBAN) 2 % ointmentIndicati ons:Impetigo appy tid x 10 days 22 g 07/18/2022 Active Active Problems No known active problems Family History Medical History Relation Name Comments Cancer Brother Heart Problems Brother Relation Name Status Comments Brother Social History Tobacco Use Types Packs/Day Years Used Date Smoking Tobacco: Never Smokeless Tobacco: Never Tobacco Cessation:Counseling Given: No Alcohol Use Standard Drinks/Week Comments Never 0 (1 standard drink = 0.6 oz pur e alcohol) AUDIT-C Answer Date Recorded Q1: How often do you have a drink containing alc ohol? Never 09/19/2020 Q2: How many drinks containi ng alcohol do you have on a typical day when you are drinking? Not asked 09/19/2020 Q3: How often do you have six or more drinks on one occasion? Never 09/19/2020 Comments Unknown Sex and Gender Information Value Date Recorded Sex Assigned at Not on file Legal Sex Female 4:47 PM EST Gender Identity Not on file Sexual Orientation Not on file Last Filed Vital Signs Vital Sign Reading Time Taken Comments Blood Pressure 138/80 07/18/2022 8:28 AM EST Pulse 74 07/18/2022 8:28 AM EST Temperature 37 C (98.6 F) 07/18/2022 8:28 AM EST Respiratory Rate 15 07/18/2022 8:28 AM EST Oxygen Saturation 98% 07/18/2022 8:28 AM EST Inhaled Oxygen Concentration - - Weight - - Height - - Body Mass Index - - Plan of Treatment Health Maintenance Due Date Last Done Comments Cologuard 1950 Colonoscopy 1949 Colorectal Cancer Screening 1949 FIT 1949 Lipid Screening 1967 Tetanus Vaccination (Every 10 Years) 1967 Hepatitis C Virus (HCV) Screening 1970 Pneumococcal Vaccine: 50+ Years (1 of 1 - PCV) 999 Zoster-RZV(Shingrix) (1 of 2) 1999 Fall Risk Assessment 2014 Osteoporosis Screening 2014 RSV Vaccines (1 - 1-dose 75+ series) 2024 Advance Care Planning 08/28/2024 Depression Screening 08/28/2024 COVID-19 Vaccine ( season) 2025 Influenza Vaccination (#1) 2025 Breast Cancer Screening Discontinued 06/17/2020 Insurance [employer] Member Subscriber Plan / Payer (Ef fective 2017-Present) Name:RERE HARDEN Relation to Subscriber:Self Name:Rere Harden Payer ID:[id number] (NAIC) Type:[employer] Address: [place] [phone] [employer] Member Subscriber Plan / Payer ( fective 2017-Present) Name:RERE HARDEN Relation to Subscriber:Self Name:Rere Harden Payer ID:[id number] (NAIC) Type:HMO Address: [place] [phone] Care Teams Degreaser Operator Relationship Specialty [place] [address] [place] [address] PCP - General Family Medicine 07/18/22 Malika Booker MD [address] [address] Family Medicine 07/18/22
== END 2025-06-09 23:59 ==
LOC: LAB.DROPOF 06-10 11:14
PROVIDERS: PCP Family Medicine; Visit Provider Family Medicine
DX: E11.9 Type 2 diabetes mellitus without complications (principal); I10 Essential (primary) hypertension
CPT/HCPCS: 82043; 82570